=== PATIENT | female | born 1950 | race Two or more races ===

== ENCOUNTER 2016-07-19 07:59 | Outpatient (CLI) ==
--- NOTE | 2016-07-19 09:42 | MRI ---
EXAM: MRI brain without and with IV contrast. DATE: 07/19/2016. HISTORY: Dizziness. Patient has history of " mini-strokes". TECHNIQUE: Sagittal T1W pre and postcontrast, axial T2W, axial FLAIR, axial T1W pre and postcontras t, axial DWI, coronal T1W postcontrast, and coronal T2W GRE sequences of the brain were obtained usi ng 1.2 Monik magnet. CONTRAST: Omniscan - 17 ml IV. COMPARISON: CT head 04 December 2007 and 01 May 2016. FINDINGS: The ventricles, cisterns, and subarachnoid spaces are normal in size and configuration. No midline shift, mass effect or abnormal extra-axial fluid collection is apparent. No acute infarc t, hemorrhage or enhancing neoplasm is identified. No abnormal contrast enhancement is identified i n the brain, meninges or dura. Minimal T2W/FLAIR hyperintensity is observed in the white matter abu tting the anterior horn and body of each lateral ventricle. A few 1-4 mm, T2W/FLAIR bright, non-enh ancing foci are scattered in the subcortical white matter bilaterally. The keith - white matter diff erentiation is normal. A T2W GRE dark signal in the region of the pineal gland corresponds with ruthann cification on previous CT scan. No migration or diverticulation abnormality is identified. No defi nitive mesial temporal sclerosis is detected. The 7th/8th cranial nerve complexes, cerebellopontine angles, brainstem, and visible cervical spinal cord are normal. There is no cerebellar tonsillar e ctopia. The pituitary gland is very small in size and flattened against the floor of the sella, wit h CSF filling much of the pituitary fossa. Corpus callosum is normal in size and configuration. Fl ow voids are present in the major intracranial arteries and in the dural venous sinuses. No aneurys m, AVM or dural venous sinus thrombosis is apparent. Distortion at the anterior margin the globe of each eye on several sequences may be due to mascara. No other orbit abnormality is identified. Th e mastoid air cells are unremarkable. There is no acute sinusitis. No neck mass or lymphadenopathy is detected. Mild thickening of the inner table of the frontal bone appears benign. No calvarial neoplasm or acute fracture is evident. IMPRESSIONS: 1. No acute infarct, hemorrhage, enhancing mass or hydrocephalus. 2. Minor supratentorial white matter changes - likely small vessel disease. 3. Very small pituitary gland - nearly empty sella. 4. Benign hyperostosis frontalis interna (mild).
== END 2016-07-19 08:00 | disposition home or self-care (01) ==
LOC: RAD 07:59
PROVIDERS: ATTEND Internal Medicine
DX: R42 Dizziness and giddiness (principal); Z86.73 Personal history of transient ischemic attack (TIA), and cerebral infarction without residual deficits

== ENCOUNTER 2016-10-29 12:45 | Outpatient (CLI) ==
--- NOTE | 2016-11-01 08:07 | MAMMO ---
EXAM: Bilateral digital screening mammogram History: Screening. Comparison: Screening mammogram 12/02/2014 Findings: MLO and CC views of bilateral breasts demonstrate scattered fibroglandular breast parench yma. Stable benign bilateral nodular densities. Stable benign bilateral breast calcifications. Th ere are no developing masses, no suspicious microcalcifications and no architectural distortions Impression: Benign stable mammogram. Recommend followup routine screening mammography in 1 year. BIRADS 2
== END 2016-10-29 12:46 | disposition home or self-care (01) ==
LOC: RAD 12:45
PROVIDERS: ATTEND Internal Medicine
DX: Z12.31 Encounter for screening mammogram for malignant neoplasm of breast (principal)

== ENCOUNTER 2017-07-21 13:00 | Outpatient (CLI) ==
--- NOTE | 2017-07-21 14:39 | US ---
EXAM: ULTRASOUND CAROTID DUPLEX, BILATERAL HISTORY: Vertigo, hypertension and weakness FINDINGS: Kerns-scale ultrasound, color Doppler and spectral analysis was performed. Velocities are in meters per second. By kerns scale and color Doppler imaging, there were regions of heterogeneous plaque formation identif ied within the carotid bulbs and internal carotid arteries. These regions of plaque appeared to matt in easily less than 50% vessel diameter. RIGHT: External carotid artery peak systolic velocity: 1.1 Common carotid artery peak systolic velocity/end diastolic velocity: 0.6/0.1 Internal carotid artery peak systolic velocity: 0.9 ICA/CCA peak systolic velocity ratio: 1.5 ICA end diastolic velocity: 0.2 LEFT: External carotid artery peak systolic velocity: 1.0 Common carotid artery peak systolic velocity/end diastolic velocity: 0.8/0.2 Internal carotid artery peak systolic velocity: 0.9 ICA/CCA peak systolic velocity ratio: 1.1 ICA end diastolic velocity: 0.3 The right and left vertebral arteries were antegrade. IMPRESSION: 1. By kerns scale and color Doppler imaging, there were regions of heterogeneous plaque formation wilmer ntified within the carotid bulbs and internal carotid arteries. These regions of plaque appeared to remain easily less than 50% vessel diameter. 2. Internal carotid artery peak systolic velocities and ICA/CCA peak systolic velocity ratios indica te no hemodynamically significant stenosis bilaterally. 3. Both vertebral arteries were antegrade.
--- NOTE | 2017-07-21 15:16 | MRI ---
EXAM: MRI brain without and with IV contrast. DATE: 07/21/2017. HISTORY: Hypertension, vertigo, weakness. TECHNIQUE: Sagittal T1W postcontrast, axial T2W, axial FLAIR, axial T1W pre and postcontrast, axial DWI, coronal T1W postcontrast, and coronal T2W GRE sequences of the brain were obtained using 1.2 Shwetha la magnet. CONTRAST: Omniscan - 15 ml IV. COMPARISON: CT head 03/16/2017. MRI brain 07/19/2016. FINDINGS: The ventricles, cisterns, and subarachnoid spaces are normal in size and configuration. N o midline shift, mass effect or abnormal extra-axial fluid collection is apparent. No acute infarct, hemorrhage or enhancing neoplasm is identified. No abnormal contrast enhancement is identified in t he brain, meninges or dura. Narrow, confluent rim of T2W/FLAIR hyperintensity is observed in the whi te matter abutting each lateral ventricle. A handful of 2-5 mm, T2W/FLAIR bright, non-enhancing foci are scattered in the kay radiata and subcortical white matter. The keith - white matter different iation is normal. No migration or diverticulation abnormality is identified. The amygdala, hippocam pus, and parahippocampal gyri are similar bilaterally. The 7th/8th cranial nerve complexes, cerebell opontine angles, brainstem, and visible cervical spinal cord are normal. There is no cerebellar tons illar ectopia. The pituitary gland is small in size, with CSF filling much of the pituitary fossa. Corpus callosum is normal in size and configuration. Flow voids are present in the major intracrania l arteries and in the dural venous sinuses. No aneurysm, AVM or dural venous sinus thrombosis is ruth arent. No orbit abnormality is identified. The mastoid air cells are unremarkable. There is no acu te sinusitis. No neck mass or lymphadenopathy is detected. Mild thickening of the inner table of th e frontal bone appears benign. No calvarial neoplasm or acute fracture is evident. IMPRESSIONS: 1. No acute infarct, hemorrhage, mass or hydrocephalus. 2. Minimal supratentorial small vessel disease. 3. Empty sella appearance - very small pituitary. 4. Benign hyperostosis frontalis interna (mild)..
[2017-07-21 17:17] VITALS: BMI 31.2
== END 2017-07-21 13:01 | disposition home or self-care (01) ==
LOC: LAB 13:00
PROVIDERS: ATTEND Internal Medicine
DX: R42 Dizziness and giddiness (principal); I10 Essential (primary) hypertension; R11.10 Vomiting, unspecified; R53.1 Weakness
CPT/HCPCS: 36415; 82565

== ENCOUNTER 2017-07-21 15:28 | Observation (INO) | payer OTHER ==
[2017-07-21] MEDS ORDERED: ATROPINE SULFATE PFS IVP PRN (15:51)
[2017-07-21] MEDS ORDERED: MORPHINE 4 MG/ML VIAL IVP PRN (15:51)
[2017-07-21] MEDS ORDERED: NITROSTAT SL PRN (15:51)
[2017-07-21] MEDS ORDERED: VISTARIL INJ IM PRN (15:51)
[2017-07-21] MEDS ORDERED: ZOFRAN 4 MG/2 ML IVP PRN (15:51)
[2017-07-21] MEDS ORDERED: TYLENOL PO PRN (15:51)
[2017-07-21] MEDS ORDERED: VASOTEC IV IVP PRN (16:10)
--- NOTE | 2017-07-21 16:46 | DI ---
EXAM: CHEST FRONTAL AND LATERAL VIEWS HISTORY: Chest heaviness. COMPARISON: 05/01/2016 FINDINGS: Heart size is within normal limits. There is mild ectasia of the aorta suggesting atheros clerosis. No acute infiltrates are seen. No vascular congestion. There is no consolidation, visible pleural fluid or pneumothorax. Bones reveal no acute fracture. IMPRESSION: No acute cardiopulmonary process.
[2017-07-21] MEDS: ANTIVERT PO SCH ×2 (16:56→21:42)
[2017-07-21] MEDS: VALIUM PO SCH ×2 (16:58→21:42)
[2017-07-21 17:17] VITALS: BMI 31.2
[2017-07-22] MEDS ORDERED: LASIX TAB PO SCH (06:30)
[2017-07-22] MEDS ORDERED: MICRO-K CAP PO SCH (08:00)
[2017-07-22] MEDS ORDERED: ASPIRIN EC PO SCH (08:00)
[2017-07-22] MEDS: VALIUM PO SCH ×2 (08:15→14:29)
[2017-07-22] MEDS: ANTIVERT PO SCH ×2 (08:15→14:30)
[2017-07-22] MEDS ORDERED: BENICAR PO SCH (09:00)
[2017-07-22] MEDS ORDERED: ZEBETA PO SCH (09:00)
[2017-07-22] MEDS ORDERED: NON-FORMULARY MEDICATION (Olmesartan Medoxomil [Benicar] 40 MG) PO SCH (09:00)
[2017-07-22] MEDS ORDERED: NON-FORMULARY MEDICATION (Potassium Chloride [K-Tab Er] 10 MEQ) PO SCH (09:00)
[2017-07-22 16:43] VITALS: BP 121/53; TEMP 97.8
--- NOTE | 2017-07-25 09:18 | ECHO2D ---
Date of Exam: 07/22/17 Ordering Physician: DR. DARIEN BRAR Room #: [id number] 3 Reason for Echo: HYPERTENSION, DIZZINESS, VERTIGO Auscultation: S1, S2 Murmurs: NONE M-Mode Normal Adult Results LV Dimensions Normal Adult Results AoV Opening excursions >1.6 >1.6 LVEDD-base- 3.5-5.8 4.6 Ao root dimensions 2.0-3.7 3.7 LVESD-base- 3.1-4.6 L. Atrium dimensions 1.9-3.8 3.4 Post. Wall thickness 0.8-1.1 1.3 IV septum (thickness) 0.7-1.2 1.3 Post. Wall excursion 0.72-1.3 NORMAL Septal motion NORMAL Systolic motion R. Ventricular cavity 1.5-2.0 NORMAL LVEF 60% 56% Paradoxical septal wall motion NORMAL 2-D : 2-D M Mode Echocardiogram was performed using apical four chamber and left parasternal long and short axis views. Mitral, tricuspid and aortic valves appear to be normal. Contractility of the left ventricle seems to be normal, so is the cavity size. Left atrial cavity size and aortic root appear to be normal. There is no pericardial effusion. There is no thrombus noted in the left ventricular or left aortic cavity. No mitral valve prolapse noted. M-MODE: MV: NORMAL AV: NORMAL TV: NORMAL PV: CHAMBER SIZE: NORMAL WALL MOTION: NORMAL PERICARDIUM: NORMAL INTERPRETATION: 1. LEFT VENTRICULAR HYPERTROPHY 2. NORMAL VALVES 3. NORMAL LEFT VENTRICULAR CONTRACTILITY MTDD
--- NOTE | 2017-07-26 07:50 | DS ---
DATE OF SERVICE: 07/22/17 FINAL DIAGNOSIS: 1. Vertigo likely vestibular dysfunction 2. Nausea related to vestibular dysfunction 3. Hypertension 4. History of dizziness for past four years with multiple work up including cardiovascular and center nervous system. 5. Dyslipidemia 6. Hypertension 7. History of heart disease 8. Left knee replacement 9. Status post cholecystectomy 10.Status post back surgery, 1997 11.Right rotator cuff surgery 12.Left carpel tunnel syndrome surgery 13.Generalized osteoarthritis 14.BMI 33 DISCHARGE INSTRUCTIONS: Discharge home today. Continue the same medications as before. Refer to ENT, Dr. Gordon. MEDICATIONS AT DISCHARGE: Benicar 40mg PO QAM Furosemide 40mg PO QAM Bisoprolol Fumarate 5mg PO QAM Potassium Chloride 10 meq PO QAM NEW PRESCRIPTIONS: Valium 2mg one to two tablets three times a day total of 30 with 1 refill. Meclizine 25mg PO three times a day DIET INSTRUCTIONS: Regular ACTIVITY: As tolerated SMOKING: Never smoker DISEASE SPECIFIC EDUCATION: Medications Appointments HOSPITAL COURSE: 67 year old white female hospitalized with severe dizziness, vertigo, nausea and hypertension. The patient's hypertension was related to her vertigo. The patient was given Meclizine and Valium in the hospital. Her blood pressure was on the low side with systolic of close to 100. The patient's neurological status was entirely normal through out the stay in the hospital. Her Telemetry did not reveal any arrhythmias. The patient's carotid scans, MRI of the brain and echocardiogram were negative. The patient was feeling better and she was up and about with no dizziness. The patient is going to be see by Dr. Gordon. LABS: MRI of the brain negative. Carotid scan negative. Echocardiogram normal with LVH. Normal LV contractility. Hgb 13, hct 39, WBC 9,700, creatinine 0.7, BUN 14 , potassium 3.8. CONDITION: STABLE TIME SPENT: More than 60 minutes. [facility]
--- NOTE | 2017-07-26 07:51 | PN ---
07/21/17: Observation Level 5 07/22/17: Observation D as in discharge MTDD
== END 2017-07-22 17:35 | disposition home or self-care (01) ==
LOC: INTOOBSV 15:28 → SCU 15:28
PROVIDERS: ADMIT Internal Medicine; ATTEND Internal Medicine
DX: R42 Dizziness and giddiness (principal); R11.0 Nausea; R11.10 Vomiting, unspecified; R53.1 Weakness; R03.1 Nonspecific low blood-pressure reading; I10 Essential (primary) hypertension; E78.5 Hyperlipidemia, unspecified; M19.90 Unspecified osteoarthritis, unspecified site; Z86.69 Personal history of other diseases of the nervous system and sense organs; Z86.79 Personal history of other diseases of the circulatory system; Z98.890 Other specified postprocedural states; Z68.33 Body mass index [BMI] 33.0-33.9, adult; Z79.899 Other long term (current) drug therapy
CPT/HCPCS: 36415; 80053; 82550; 82565; 84484; 85025; 93005; 93010; 97802

== ENCOUNTER → 2017-07-27 | Outpatient (POV) ==
[2017-07-21 17:17] VITALS: BMI 31.2
== END ==
LOC: OUTPT 00:01
PROVIDERS: ATTEND Otolaryngology
DX: R42 Dizziness and giddiness (principal)
CPT/HCPCS: 92557; 92567

== ENCOUNTER 2017-10-05 14:02 | Outpatient (POV) | END 2017-10-05 17:00 | LOC: OUTPT 14:02 | PROVIDERS: ATTEND Otolaryngology | DX: H91.90 Unspecified hearing loss, unspecified ear (principal) | CPT/HCPCS: 92552 ==

== ENCOUNTER 2018-07-26 12:27 | Inpatient (IN) ==
[2018-07-26] MEDS ORDERED: TORADOL IVP PRN (13:18)
[2018-07-26 13:33] VITALS: BMI 32.3
[2018-07-26] MEDS ORDERED: DICLOFENAC SODIUM 100 GM TP PRN (14:24)
[2018-07-26] MEDS: CIPRO PO SCH ×2 (14:29→20:28)
[2018-07-26] MEDS: DEXTROSE 5%-1/2NS IV SOLUTION 1,000 ML IV SCH (14:30)
[2018-07-26] MEDS: FLAGYL 500 MG/100 ML 500 MG in PREMIX 100 ML NS 1 BAG IV SCH ×2 (14:31→20:28)
--- NOTE | 2018-07-26 15:15 | DI ---
EXAM: Chest two views HISTORY: Cough COMPARISON: 07/21/2017 TECHNIQUE: Two views of the chest were performed FINDINGS: The lungs are clear. There is no pleural effusion or pneumothorax. The heart is normal i n size. The mediastinal contour is normal, noting atherosclerosis. There are no acute abnormalities of the bones. Surgical anchors right proximal humerus. Rounded calcification left upper quadrant li radhika correlates with a small splenic artery aneurysm described on prior CT. IMPRESSION: No acute cardiopulmonary process.
--- NOTE | 2018-07-26 16:16 | CT ---
EXAM: CT abdomen pelvis with contrast HISTORY: Abdominal pain COMPARISON: 02/05/2016 TECHNIQUE: CT abdomen pelvis performed with intravenous contrast. Coronal and sagittal reformatted images obtained. FINDINGS: Granulomas calcification lower chest. No free air. No acute abnormalities of the bones. Left hip arthroplasty. Spinal fusion changes of L4-L5 and L5-S1. Degenerative change in the spine. Heart normal in size. Liver diffusely decreased and attenuation. Liver is enlarged. Patient stat us post cholecystectomy. Pancreas unremarkable. Granulomas calcification in the spleen. Spleen oth erwise unremarkable. Adrenals unremarkable. Kidneys unremarkable. Aorta normal in caliber. Mild a therosclerosis. Stable calcified splenic artery aneurysm measuring 1.4 cm. No lymphadenopathy or as cites. Small fat-containing periumbilical hernia. Small hiatal hernia. No dilated loops small pricila l. Appendix not visualized. Colonic diverticulosis. Questionable mild inflammatory stranding dis jack sigmoid colon region could represent mild diverticulitis; however, this region is very poorly shantanu luated, with portions of the colon obscured, secondary to streak artifact from hip arthroplasty. No focal drainable collection. Patient status post hysterectomy. Bladder decompressed and obscured sec ondary to arthroplasty. IMPRESSION: 1. Colonic diverticulosis. Questionable mild inflammatory stranding distal sigmoid colon region cou ld represent mild diverticulitis; however, this region is very poorly evaluated, with portions of the colon obscured, secondary to streak artifact from hip arthroplasty. No focal drainable collection. 2. Hepatomegaly. Probable hepatic steatosis.
[2018-07-26] MEDS: REQUIP PO SCH (20:28)
[2018-07-26] MEDS: BYSTOLIC PO SCH (20:28)
[2018-07-26] MEDS ORDERED: ROPINIROLE HCL 1 MG PO SCH (21:00)
[2018-07-27] MEDS: DEXTROSE 5%-1/2NS IV SOLUTION 1,000 ML IV SCH ×2 (00:49→10:12)
[2018-07-27] MEDS: CIPRO PO SCH ×2 (05:56→20:47)
[2018-07-27] MEDS: FLAGYL 500 MG/100 ML 500 MG in PREMIX 100 ML NS 1 BAG IV SCH ×3 (05:57→20:47)
[2018-07-27] MEDS: LASIX TAB PO SCH (05:57)
[2018-07-27] MEDS: ZOFRAN 4 MG/2 ML IVP PRN ×2 (06:47→13:23)
[2018-07-27] MEDS ORDERED: NON-FORMULARY MEDICATION (Potassium Chloride [K-Tab Er] 10 MEQ) PO SCH (09:00)
[2018-07-27] MEDS ORDERED: NON-FORMULARY MEDICATION (Olmesartan Medoxomil [Benicar] 40 MG) PO SCH (09:00)
[2018-07-27] MEDS ORDERED: PRAVACHOL PO SCH (09:00)
[2018-07-27] MEDS ORDERED: CELECOXIB 50 MG PO SCH (09:00)
[2018-07-27] MEDS: ASPIRIN EC PO SCH (09:02)
[2018-07-27] MEDS: BENICAR PO SCH (09:02)
[2018-07-27] MEDS: BYSTOLIC PO SCH ×2 (09:02→20:47)
[2018-07-27] MEDS: MICRO-K CAP PO SCH (09:02)
[2018-07-27] MEDS ORDERED: DULCOLAX RC STA (14:37)
[2018-07-27] MEDS ORDERED: DULCOLAX RC ONE (14:47)
[2018-07-27] MEDS ORDERED: DEXTROSE 5%-1/2NS IV SOLUTION 1,000 ML IV SCH (15:00)
[2018-07-27] MEDS: PROTONIX PO SCH (16:16)
[2018-07-27] MEDS: REQUIP PO SCH (20:47)
[2018-07-28 05:08] VITALS: BP 124/68; TEMP 98.1
[2018-07-28] MEDS: LASIX TAB PO SCH (05:54)
[2018-07-28] MEDS: PROTONIX PO SCH (05:54)
[2018-07-28] MEDS: FLAGYL 500 MG/100 ML 500 MG in PREMIX 100 ML NS 1 BAG IV SCH (05:54)
[2018-07-28] MEDS: CIPRO PO SCH (05:54)
--- NOTE | 2018-07-28 07:48 | PN ---
DATE OF SERVICE: 07/27/18 SUBJECTIVE: 68 year old white female eating at present time with no problem. She is tolerating food very well. The pain is much less. Her workup showed possibility of diverticulitis. REVIEW OF SYSTEMS: CONSTITUTIONAL: No night sweats. No fatigue, malaise, lethargy. No fever or chills. HEENT: Eyes: No visual changes. No eye pain. No eye discharge. ENT: No runny nose. No epistaxis. No sinus pain. No sore throat. No odynophagia. No congestion. RESPIRATORY: No cough, no congestion. No hemoptysis. No shortness of breath. CARDIOVASCULAR: No angina symptoms. No CHF symptoms. No atypical chest pain for CAD. No palpitations. No PND. No orthopnea. GASTROINTESTINAL: No nausea or vomiting. No diarrhea or constipation. No hematemesis. No hematochezia. Mild discomfort in the left upper quadrant. GENITOURINARY: No urgency. No frequency. No dysuria. No hematuria. No obstructive symptoms. No discharge. No pain. No significant abnormal bleeding. MUSCULOSKELETAL: No musculoskeletal pain; no joint swelling. NEUROLOGICAL: No headache. No neck pain. No syncope. No seizures. No dizziness. PSYCHIATRIC: Not anxious. No depression. No suicidal thoughts. No homicidal thoughts. SKIN: No rash. No lesions. No wounds. ENDOCRINE: No unexplained weight loss. No weight gain. HEMATOLOGIC/LYMPHATIC: No anemia. No purpura. No petechiae. No prolonged or excessive bleeding. No palpable lymph nodes. PHYSICAL EXAMINATION: VITAL SIGNS: Temperature 97.7, pulse 60, respiratory rate 18, blood pressure 134/80 and pulse ox 95%. HEENT: Head normocephalic, atraumatic. Eyes: Extraocular muscles are intact. Pupils are equal, round and reactive to light and accommodation. Ears: No lesions. Nose appeared normal. Throat: No exudate or erythema. NECK: Supple. No JVD, no carotid bruit. No lymphadenopathy or thyromegaly. LUNGS: Decreased breath sounds but clear to auscultation. Percussion note normal. Chest symmetrical. HEART: S1, S2, no S3. No murmurs. No cyanosis or clubbing. No ascites. Pulses: Dorsalis pedis and posterior tibial pulses +1 to +2 bilaterally. ABDOMEN: Soft. Nontender. Bowel sounds active. No CVA tenderness. No mass felt. EXTREMITIES: No edema. Full range of motion of all extremities, equal. NEUROLOGIC: No focal deficit. Cranial nerves II through XII are grossly intact. No headache, no double vision or headache. SKIN: Not dry. Intact. Turgor - normal. LYMPHATIC: No palpable lymph nodes/no lymphedema. MUSCULOSKELETAL: Normal joints with no swelling. Muscle tone is normal. LABS: Hgb 12.2, hct 37, WBC 7,400 normal differential, creatinine 0.6, BUN 11. ASSESSMENT: 1. Acute diverticulitis, seems to be resolving with antibiotics PLAN: 1. Continue the rest of the medication 2. Diet for the diverticulosis discussed CONDITION: Stable. TIME SPENT: More than 30 minutes. Plan and coordination of the patient's care discussed in the presence of nurse. FEMI
[2018-07-28] MEDS ORDERED: CELECOXIB 50 MG PO SCH (08:00)
[2018-07-28] MEDS ORDERED: PRAVACHOL PO SCH (09:00)
[2018-07-28] MEDS: MICRO-K CAP PO SCH (09:13)
[2018-07-28] MEDS: BENICAR PO SCH (09:13)
[2018-07-28] MEDS: ASPIRIN EC PO SCH (09:13)
[2018-07-28] MEDS: BYSTOLIC PO SCH (09:13)
--- NOTE | 2018-07-28 10:02 | PCM.PROG ---
Attending Provider: ATTENDING PROVIDER: Dr. DARIEN BRAR DATE OF SERVICE: 07/28/18 SUBJECTIVE: This 68 year old WHITE/ F was hospitalized 07/26/18 with acute diverticulitis. The patient has less bloating, is passing gas and feels much better. No fever, no chills. Appetite improving. She is up and about. REVIEW OF SYSTEMS: CONSTITUTIONAL: No night sweats. No fatigue, malaise, lethargy. No fever or chills. HEENT: Eyes: No visual changes. No eye pain. No eye discharge. ENT: No runny nose. No epistaxis. No sinus pain. No odynophagia. No congestion. RESPIRATORY: No cough, no congestion. No hemoptysis. No shortness of breath. CARDIOVASCULAR: No angina symptoms. No CHF symptoms. No atypical chest pain for CAD. No palpitations. No orthopnea.. GASTROINTESTINAL: No abdominal pain. No nausea or vomiting. No diarrhea or constipation. No hematemesis. No hematochezia. GENITOURINARY: No urgency. No frequency. No dysuria. No hematuria. No obstructive symptoms. No discharge. No pain. No significant abnormal bleeding. MUSCULOSKELETAL: No musculoskeletal pain; no joint swelling. NEUROLOGICAL: Awake, alert, oriented to time, place and person. No headache. No neck pain. No syncope. No seizures. No dizziness. PSYCHIATRIC: Not anxious. No depression. No suicidal thoughts. No homicidal thoughts. SKIN: No rash. No lesions. No wounds. ENDOCRINE: No unexplained weight loss. No weight gain. HEMATOLOGIC/LYMPHATIC: No anemia. No purpura. No petechiae. No prolonged or excessive bleeding. No palpable lymph nodes. PHYSICAL EXAMINATION: GENERAL: The patient is awake, alert and oriented, lying in bed in no distress. VITAL SIGNS: Temperature 98.1 F, Pulse 51, Respiratory Rate 20, BP 124/68, Pulse Ox 94% HEENT: Head normocephalic, atraumatic. Eyes: Extraocular muscles are intact. Pupils are equal, round and reactive to light and accommodation. Ears: No lesions. Nose appeared normal. Throat: No exudate or erythema. NECK: Supple. No JVD, no carotid bruit. No lymphadenopathy or thyromegaly. LUNGS: Clear to auscultation. Percussion note normal. Chest symmetrical. HEART: S1, S2, no S3. No murmurs. No cyanosis or clubbing. No ascites. Pulses: Dorsalis pedis and posterior tibial pulses +1 to +2 both sides. ABDOMEN: Soft. Non-tender. Bowel sounds active. No CVA tenderness. No mass felt. EXTREMITIES: No edema. Full range of motion of all extremities, equal. NEUROLOGIC: No focal deficit. Cranial nerves II through XII are grossly intact. No headache, no double vision or headache. SKIN: Warm and dry. Intact. Turgor-normal. LYMPHATIC: No palpable lymph nodes/no lymphedema. MUSCULOSKELETAL: Normal joints with no swelling. Muscle tone is normal. LAB REVIEW: 07/28/18 04:30 07/28/18 04:30 07/28/18 04:30: Sodium 143.3, Potassium 3.95, Chloride 104.4, Carbon Dioxide 29.5, Anion Gap 13.35, BUN 11.7, Creatinine 0.68, Estimated GFR (MDRD) 86.00, BUN/Creatinine Ratio 17.20, Glucose 120.3 H, Calcium 8.92, Total Bilirubin 0.30 , AST 30.6, ALT 22.3, Alkaline Phosphatase 79.5, Total Protein 6.55, Albumin 3.67, Globulin 2.88, Albumin/Globulin Ratio 1.27 07/28/18 04:30: WBC 7.24, RBC 4.09 L, Hgb 11.8 L, Hct 36.3 L, MCV 88.8, MCH 28.9 , MCHC 32.5, RDW Coeff of [place] 12.7, Plt Count 287, Immature Gran % (Auto) 0.6, Neut % (Auto) 54.6, Lymph % (Auto) 30.9, [place] % (Auto) 8.4, Eos % (Auto) 4.7, Baso % (Auto) 0.8, Immature Gran # (Auto) 0.0, Neut # (Auto) 4.0, Lymph # (Auto ) 2.2, [place] # (Auto) 0.6, Eos # (Auto) 0.3, Baso # (Auto) 0.1 ASSESSMENT: 1. Acute diverticulitis clinically under control. PLAN: 1. Discharge home. 2. Cipro 250 mg b.i.d. times 5 days 3. Protonix 40 mg q.a.m. once a day times 7 days 4. Flagyl 500 mg t.i.d. times 5 days 5. Soft diet - avoid milk products and citrus; to avoid nuts, seeds, popcorn. 6. Advised the patient to come to the emergency room if she has any problems. 7. Instructed to come to the office for followup visit on 08/02/18. Plan and coordination of the patient's care discussed in the presence of Community Services Manager and nurse. CONDITION: Stable SCRIBED BY: KLARISSA PIERRE Tile Ditcher scribed while in presence of service performed by Dr. DARIEN BRAR on 07/28/18 ([id number])
--- NOTE | 2018-07-28 10:14 | CM.DICTOOL ---
ADMISSION: 07/26/18 12:27 DISCHARGE: JULY 28, 2018 DATE OF SERVICE: 07/28/18 FINAL DIAGNOSIS ACUTE DIVERTICULITIS HYPERTENSION TIA, 2014 CATARACTS HYSTERECTOMY CHOLECYSTECTOMY APPENDECTOMY LEFT HIP REPLACEMENT LEFT KNEE REPLACEMENT RIGHT ROTATOR CUFF SURGERY LAST VITALS Temp Pulse Resp BP Pulse Ox 98.1 F 51 L 20 124/68 94 L 07/28/18 05:06 07/28/18 05:06 07/28/18 05:06 07/28/18 05:06 07/28/18 05:06 TAKE THESE MEDICATIONS AT HOME Aspirin (Aspirin Ec) 81 mg PO DAILYWM [facility] Last Admin: 07/28/18 09:13 Dose: 81 mg Ciprofloxacin (Cipro) 250 mg PO BIDCIPRO [facility] Last Admin: 07/28/18 05:54 Dose: 250 mg Furosemide (Lasix Tab) 40 mg PO QDAC [facility] Last Admin: 07/28/18 05:54 Dose: 40 mg Metronidazole 500 mg PO Q8HR [facility] Last Admin: 07/28/18 05:54 Dose: 100 mls/hr Nebivolol (Bystolic) 10 mg PO BID [facility] Last Admin: 07/28/18 09:13 Dose: 10 mg Non-Formulary Medication (Celecoxib [Celebrex]) 50 mg PO SuMoWeFr@0800 [facility] Last Admin: 07/28/18 09:14 Dose: Not Given Olmesartan (Benicar) 40 mg PO DAILY [facility] Last Admin: 07/28/18 09:13 Dose: 40 mg Pantoprazole Sodium (Protonix) 40 mg PO DAILY [facility] Last Admin: 07/28/18 05:54 Dose: 40 mg Potassium Chloride (Micro-K Cap) 10 meq PO DAILYWM [facility] Last Admin: 07/28/18 09:13 Dose: 10 meq Pravastatin Sodium (Pravachol) 40 mg PO MoWeFr@0900 [facility] Last Admin: 07/28/18 09:13 Dose: 40 mg Ropinirole HCl (Requip) 1 mg PO BEDTIME [facility] Last Admin: 07/27/18 20:47 Dose: 1 mg ALLERGIES codeine Adverse Reaction (Verified 07/21/17 16:08) DISCONTINUED MEDICATIONS NONE NEW PRESCRIPTIONS: PROTONIX 40 MG DAILY FOR 7 DAYS CIPRO 250 MG BID FOR 5 DAYS FLAGYL 500 MG TID FOR 5 DAYS SMOKING: NOT APPLICABLE DISEASE SPECIFIC EDUCATION: DIVERTICULITIS DIET OTHER DIETARY RESTRICTIONS, TEMPORARY PRESCRIPTIONS APPOINTMENT LAB REVIEW: 07/28/18 04:30 07/28/18 04:30 07/28/18 04:30: Sodium 143.3, Potassium 3.95, Chloride 104.4, Carbon Dioxide 29.5, Anion Gap 13.35, BUN 11.7, Creatinine 0.68, Estimated GFR (MDRD) 86.00, BUN/Creatinine Ratio 17.20, Glucose 120.3 H, Calcium 8.92, Total Bilirubin 0.30 , AST 30.6, ALT 22.3, Alkaline Phosphatase 79.5, Total Protein 6.55, Albumin 3.67, Globulin 2.88, Albumin/Globulin Ratio 1.27 07/28/18 04:30: WBC 7.24, RBC 4.09 L, Hgb 11.8 L, Hct 36.3 L, MCV 88.8, MCH 28.9 , MCHC 32.5, RDW Coeff of Kend[place] 12.7, Plt Count 287, Immature Gran % (Auto) 0.6, Neut % (Auto) 54.6, Lymph % (Auto) 30.9, [place] % (Auto) 8.4, Eos % (Auto) 4.7, Baso % (Auto) 0.8, Immature Gran # (Auto) 0.0, Neut # (Auto) 4.0, Lymph # (Auto ) 2.2, [place] # (Auto) 0.6, Eos # (Auto) 0.3, Baso # (Auto) 0.1 PLAN: DISCHARGE HOME DIET: REGULAR, NO SEEDS, NUTS, POPCORN, HUSKS NO DAIRY PRODUCTS OR [place]RUS FOODS FOR 3-4 DAYS ACTIVITY: GRADUALLY INCREASE DIET AT TOLERATED AN APPOINTMENT IS SCHEDULED ON AT 2:[address] BRAR/STEFANIE SOFIA APRN CONTINUE HOME MEDICATIONS MRS. WOODY IS ALERT AND ORIENTED X 3. SHE IS INDEPENDENT WITH ACTIVITIES OF DAILY LIVING. SHE LIVES AT HOME WITH HER . SHE IS AMBULATORY WITHOUT USE OF AN ASSISTIVE DEVICE. SHE DENIES ABDOMINAL PAIN OR NAUSEA TODAY. LAST BOWEL MOVEMENT WAS YESTERDAY; CONSISTING OF MAINLY MUCUS AND FLATUS. MEAL INTAKES HAVE BEEN GOOD AT 75-90% SINCE HER ADMISSION. SKIN TURGOR IS GOOD. SKIN IS FREE OF DECUBITUS ULCERS OR OPEN AREAS. SHE IS AGREEABLE TO ALL DISCHARGE PLANS DISCUSSED BY DR. BRAR. DARIEN BRAR MD
--- NOTE | 2018-07-28 14:49 | HP ---
DATE OF SERVICE: 07/26/18 HISTORY OF PRESENT ILLNESS: This is a 68-year-old White female, who after eating Maced[place] food, developed left upper quadrant and left middle quadrant pain with cramping with bloating - stomach swells up. She eats 5 to 6 bites and stomach feels full. Tuesday night she had fever and Tuesday sweating and nausea, bowel movement was mucus and water. PAST MEDICAL HISTORY: Insomnia Vertigo SUSAN Hypertension Dyslipidemia Osteoarthritis Mini strokes MENSTRUAL HISTORY: Mammogram 06/23/18 [facility] PAST SURGICAL HISTORY: Left hip replacement Left knee replacement Right rotator cuff Colonoscopy 2014 Gallbladder Appendix Back surgery 1997 Hysterectomy REVIEW OF SYSTEMS: CONSTITUTIONAL: No fever, no fatigue. HEENT: No sinus drainage, no sore throat. RESPIRATORY: No cough, no congestion. CARDIOVASCULAR: No atypical chest pain for coronary artery disease. No angina , CHF symptoms, palpitations or shortness of breath. GASTROINTESTINAL: No melena or abdominal pain. No GERD. GENITOURINARY: No hematuria, no prostatism, no polyuria. MATH INSTRUCTOR: No blackout, no dizziness, no headache, no double vision. MUSCULOSKELETAL: No osteoarthritis pain, no joint swelling. ENDOCRINE: No weight loss, no weight gain. SKIN: Not dry, no rash. PSYCHIATRIC: Not anxious, no depression, no suicidal thoughts, no homicidal thoughts. SOCIAL HISTORY: Nonsmoker. . No alcohol use. FAMILY HISTORY: History of cancer - colon. MEDICATIONS: ASA 81 mg daily Celebrex 20 mg four days a week Lasix 40 mg daily K-Tab 10 mEq daily Voltaren Gel b.i.d. Benicar 40 mg b.i.d. Bystolic 10 mg daily Pravachol 40 mg daily times three weeks ALLERGIES: CODEINE PHYSICAL EXAMINATION: V/S: Pulse 80, BP 148/90, temperature 98.4, 02 sat 96%. Height 5'4", BMI 32.2, weight 188.0. GENERAL APPEARANCE: Oriented times three. HEENT: Normal. NECK: No JVP, no bruits. RESPIRATORY: Lungs are clear. CARDIOVASCULAR: S1, S2, no S3, no murmurs. No cyanosis, clubbing. No ascites. GI/ABDOMEN: Left upper quadrant tenderness. Bowel sounds are active. EXTREMITIES: edema, pulses +1, equal. MATH INSTRUCTOR: Deep tendon reflexes, sensory, motor and gait all normal. RECTAL/PELVIC: Rectal: Colonoscopy 2014 in [place], [place]. Pelvic: Advised yearly - hysterectomy. Mammogram 06/23/18 [facility] ASSESSMENT: 1. ABDOMINAL PAIN 2. ACUTE COLITIS - FOOD POISONING/ACUTE DIVERTICULITIS 3. RIGHT KNEE REPLACEMENT 04/[address] - [facility] 4. INSOMNIA 5. VERTIGO 6. SUSAN 7. DYSLIPIDEMIA 8. HYPERTENSION 9. MINI STROKES 10. OSTEOARTHRITIS 11. CHOLECYSTECTOMY 12. BACK SURGERY 1997 13. RIGHT ROTATOR CUFF SURGERY 14. LEFT TOTAL HIP REPLACEMENT 15. LEFT CTS 16. LEFT KNEE REPLACEMENT 17. HYSTERECTOMY, 1986 18. APPENDECTOMY, 1979 PLAN: 1. Admit 2. Telemetry times 24 hours 3. CBC, CMP, TSH today and daily CBC, CMP 4. Vitals q.8hr 5. Flagyl 500 mg IV q.8hr 6. Stool for culture and sensitivity/Campylobacter 7. Cipro 250 mg p.o. b.i.d. times five days and one now 8. CT scan of abdomen and pelvis with content today 9. Diet; avoid milk/citrus products 10. Soft diet 11. 1000 cc's D5 1/2 NS 8 hourly 12. Continue Benicar, Bystolic from home meds 13. Zofran 4 mg IV now and 6 hourly p.r.n. 14. Toradol 30 mg IV now and q.8hourly p.r.n. 15. EKG and chest x-ray today TIME SPENT: More than 70 minutes. MTDD
--- NOTE | 2018-08-03 13:04 | DS ---
DATE OF SERVICE: 07/28/18 FINAL DIAGNOSIS: 1. ACUTE DIVERTICULITIS 2. HYPERTENSION 3. TIA, 2013 4. CATARACTS 5. HYSTERECTOMY 6. CHOLECYSTECTOMY 7. APPENDECTOMY 8. LEFT HIP REPLACEMENT 9. LEFT KNEE REPLACEMENT 10. RIGHT ROTATOR CUFF SURGERY LAST V/S: Temperature 98.1, pulse 51, respiratory rate 20, BP 124/68, pulse ox 94L DISCHARGE INSTRUCTIONS: Followup appointment is scheduled on August 02 at 2:[address] Stark/ Tiffanie Pedroza APRN. MEDICATIONS AT DISCHARGE: Aspirin 81 mg p.o. daily with meal GINNY Ciprofloxacin 250 mg p.o. b.i.d. GINNY Furosemide 40 mg p.o. q.d a.c. GINNY Metronidazole 500 mg p.o. q.8hr GINNY Nebivolol 10 mg p.o. b.i.d. GINNY Celebrex 50 mg p.o. SuMoWeFr@0800 GINNY Olmesartan 40 mg p.o. daily GINNY Pantoprazole 40 mg p.o. daily GINNY Potassium Chloride 10 mEq p.o. daily with meal GINNY Pravachol 40 mg p.o. MoWeFr@0900 GINNY Requip 1 mg p.o. bedtime GINNY DISCONTINUED MEDICATIONS: None NEW PRESCRIPTIONS: Protonix 40 mg daily for 7 days Cipro 250 mg b.i.d. for 5 days Flagyl 500 mg t.i.d. for 5 days DIET INSTRUCTIONS: Regular, no seeds, nuts, popcorn, husks. No dairy products or citrus foods for 3 to 4 days. ACTIVITY: Gradually increase diet as tolerated. SMOKING: N/A DISEASE SPECIFIC EDUCATION: Diverticulitis diet Other dietary restrictions, temporary Prescriptions Appointment HOSPITAL COURSE: This 68-year-old white female hospitalized with acute diverticulitis. The patient was treated in the hospital with IV Flagyl and p.o. Cipro. The patient' s condition has improved. She is feeling a lot better today. As described in discharge progress note, she was up and about, passing gas. Appetite is normalizing. WBC count was normal. She was afebrile. She was explained about diet for diverticulosis. Discharge home in stable condition. If the pain reoccurs advised to go to the emergency room. CONDITION: At time of discharge stable. TIME SPENT: More than 60 minutes. [facility]
--- NOTE | 2018-08-03 13:05 | PN ---
CODING FOR BILLING 07/26/18 LEVEL 5 07/27/18 INTERMEDIATE 07/28/18 DISCHARGE MTDD
== END 2018-07-28 11:27 | disposition home or self-care (01) | DRG 392 ==
LOC: MEDSURG A 12:27
PROVIDERS: ADMIT Internal Medicine; ATTEND Internal Medicine
DX: K52.9 Noninfective gastroenteritis and colitis, unspecified (principal); K57.92 Diverticulitis of intestine, part unspecified, without perforation or abscess without bleeding; G47.00 Insomnia, unspecified; R42 Dizziness and giddiness; F41.1 Generalized anxiety disorder; E78.5 Hyperlipidemia, unspecified; I10 Essential (primary) hypertension; M19.90 Unspecified osteoarthritis, unspecified site; Z86.73 Personal history of transient ischemic attack (TIA), and cerebral infarction without residual deficits; Z96.651 Presence of right artificial knee joint
CPT/HCPCS: 36415; 80053; 81001; 84439; 84443; 85007; 85025; 87015; 87045; 87899; 93005; 93010; 99223; 99232; 99239

== ENCOUNTER 2018-08-11 07:40 | Outpatient (CLI) | payer OTHER ==
--- NOTE | 2018-08-11 08:52 | CT ---
EXAM: CT of the abdomen pelvis with contrast History: Left-sided abdominal pain and left flank pain, nausea, history of appendectomy. Comparison: CT abdomen pelvis 07/26/2018 Technique: Multiplanar CT images through the abdomen pelvis were obtained following administration o f IV contrast Findings: Heart size is borderline enlarged. Lung bases are clear. No acute osseous abnormalities. Left hip arthroplasty hardware. Postsurgical changes of the lumbar spine. The liver is enlarged and fatty. Status post cholecystectomy. Spleen is unremarkable. Pancreas is within normal limits. Adrenal glands are unremarkable. No renal masses and no hydronephrosis. Scat tered colonic stool. Evaluation the pelvis is limited due to streak artifact from the hip hardware. Bladder is not well d istended. There is sigmoid diverticulosis. Mild inflammation seen adjacent to the sigmoid colon but improved compared to the prior study. No free air and no abscess. Impression: 1. Mild sigmoid diverticulitis but improved compared to the prior study. There is no free air and n o abscess. 2. Enlarged fatty liver
== END 2018-08-11 07:41 | disposition home or self-care (01) ==
LOC: RAD 07:40
PROVIDERS: ATTEND Internal Medicine
DX: R10.9 Unspecified abdominal pain (principal); R11.0 Nausea
CPT/HCPCS: 36415; 80053; 82150; 83690; 85025

== ENCOUNTER 2018-10-10 07:52 | Day surgery (SDC) ==
[2018-10-10 08:37] VITALS: TEMP 97
[2018-10-10] MEDS ORDERED: LIDOCAINE 1% 20 ML MDV ID STA (08:37)
[2018-10-10] MEDS ORDERED: DIPRIVAN 20 ML VIAL IVP ONE (10:25)
[2018-10-10] MEDS ORDERED: VERSED ONE (10:25)
--- NOTE | 2018-10-11 09:03 | OP ---
INDICATIONS FOR PROCEDURE: 68-year-old female presents for colonoscopy exam. She is scheduled for screening colonoscopy. She has a family history of colon cancer involving her mother, maternal uncle and maternal aunt all above the age of 50. She did have an episode of diverticulitis in July extending into August but that has resolved. MEDICATIONS: SEE ANESTHESIA NOTES. PROCEDURE: COLONOSCOPY, SNARE POLYPECTOMY. REPORT: The risks, benefits, alternatives and limitations were discussed in detail with the patient. Informed consent was obtained. After adequate sedation was achieved, a digital rectal exam revealed good tone, no masses. The colonoscope was introduced into the rectum and advanced under direct visual guidance. She has a tortuous sigmoid colon. I was able to cautiously and carefully advance the scope through the sigmoid on to the cecum. The cecum was identified by the appendiceal orifice and IC valve. Unfortunately she has a fair prep throughout the colon. She had mucus-like adherent stool with liquid puddles of stool with solid particles scattered here and there. I washed and suctioned this off as best as possible as I advanced the scope. I did again as I withdrew. In the cecum I encountered two polyps one was about 4 to 5 mm in size, the other one was about 7 to 8 mm in size both sessile, both removed by snare technique and placed in the same pathology jar. I then withdrew the scope in circumferential manner examining the mucosa quite carefully. I looked on the proximal and distal side of folds and flexures as best as possible. I retroflexed the scope in the right colon and left colon to increase visualization. At the hepatic flexure there was a small 5 mm sessile polyp I removed by snare technique and in the sigmoid there was a small 5 mm polyp that I removed by snare technique. A few diverticula were noted in the ascending colon, the hepatic flexure area. In the sigmoid where there is tortuosity was severe diverticulosis, small and large mouth present. No active diverticulitis noted. There were no other abnormalities noted including on retroflex view of the anal canal. The withdrawal time was 11 minutes and 34 seconds. The patient tolerated the procedure well with stable vital signs and pulse oximetry throughout. IMPRESSION: 1. Four (4) polyps removed. 2. Diverticulosis mostly in the sigmoid colon as described above. 3. Tortuous sigmoid colon secondary to diverticular disease. 4. Fair prep limiting the evaluation of this exam. RECOMMENDATIONS: 1. High fiber diet. 2. Await polyp pathology. 3. With her strong family history of polyps, finding the polyps and the fair prep, I recommend repeat colonoscopy examination again in 6 months with three attempts at getting a good prep. 4. Will see her back in the office as needed. CC: DR. ZONIA KAHN
[2018-10-12 14:45] VITALS: BP 132/68
== END 2018-10-10 11:25 | disposition home or self-care (01) ==
LOC: SURG 07:52
PROVIDERS: ATTEND Internal Medicine Gastroenterology
DX: Z12.11 Encounter for screening for malignant neoplasm of colon (principal); Z83.71 Family history of colonic polyps; K57.90 Diverticulosis of intestine, part unspecified, without perforation or abscess without bleeding; D12.0 Benign neoplasm of cecum; D12.3 Benign neoplasm of transverse colon; K63.5 Polyp of colon; D12.5 Benign neoplasm of sigmoid colon

== ENCOUNTER 2019-03-26 13:37 | Observation (INO) ==
[2019-03-26] MEDS ORDERED: SODIUM CHLORIDE 1,000 ML IV STA (14:07)
--- NOTE | 2019-03-26 15:32 | CT ---
EXAM: CT ABDOMEN AND PELVIS HISTORY: Upper abdominal pain, low back pain TECHNIQUE: CT abdomen and pelvis with intravenous contrast. Images were reconstructed using 5 mm se ction thickness. Reformations were prepared. FINDINGS: Compared to 08/11/2018. Mild fatty infiltration of the liver. Spleen is within normal limits. There is a small accessory sp natalia. There is a stable peripherally calcified 15 mm splenic artery aneurysm which is probably paten t. Gallbladder has been removed. Pancreas is unremarkable. Normal adrenal glands. Unremarkable ki dneys without evidence of hydronephrosis. Minimal atherosclerotic disease. Stomach is unremarkable. Patient has a history of previous appendectomy. There is mild to moderate distal colon diverticulosis. No clear evidence of diverticulitis. Bowel gas pattern is nonobstructi ve. The patient has underwent previous left hip arthroplasty which causes artifact obscuring some de tail especially in the anatomic pelvis. The visualized urinary bladder is normal. No uterus is seen . There is no ascites. Heterogeneous breast tissue density distribution. No abdominal wall hernia. Postop changes of the l ower lumbar spine and lumbosacral junction. Previous decompressive laminectomy at this level. There is moderate sacroiliac joint arthropathy. Lung bases are clear and there is no pneumoperitoneum. IMPRESSION: 1. Fatty liver. 2. Distal colon diverticulosis with no convincing evidence of diverticulitis. 3. Postop changes of the lumbar spine. Moderate arthropathy of the sacroiliac joints. 4. Stable peripherally calcified 15 mm splenic artery aneurysm which is probably patent. 5. Kidneys appeared normal.
--- NOTE | 2019-03-26 15:38 | CT ---
EXAM: CT angiography chest HISTORY: Upper abdominal and low back pain COMPARISON: None TECHNIQUE: CT angiography chest performed with intravenous contrast. Coronal and sagittal reformatt ed images obtained. 3-D reformatted images created. FINDINGS: Thoracic inlet unremarkable. Heart mildly enlarged. No pericardial effusion. Aorta norm al in caliber. Evaluation of the aortic lumen limited due to contrast timing. Mild atherosclerosis. No lymphadenopathy identified in the chest. Calcified lymph nodes, consistent with old granulomato us disease. No acute abnormalities of the bones. Central airway patent. Mild bibasilar ground-glas s may relate to atelectasis and/or air trapping. No airspace consolidation. No pleural effusion. N o pneumothorax. No filling defects identified in the pulmonary arteries to to the segmental level to suggest a pulmonary embolism. Areas of the more distal pulmonary arteries nondiagnostic due to area s of motion artifact. Please refer to separate report CT abdomen pelvis regarding findings in the upp er abdomen. IMPRESSION: 1. No evidence for pulmonary embolism to the segmental level. 2. Mild bibasilar ground-glass may relate to atelectasis and/or air trapping. 3. Cardiomegaly
--- NOTE | 2019-03-26 16:19 | ED.PDOC ---
General ED Provider: Dr. BONG GUAJARDO Chief Complaint: Abdominal Pain Stated Complaint: epigastric pain radiating between shoulder blades Time Seen by Physician: 13:39 Mode of Arrival: Walk-In Information Source: Patient Exam Limitations: No limitations Primary Care Provider: DARIEN BRAR Nursing and Triage Documentation Reviewed and Agree: Yes Does patient meet sepsis criteria?: No System Inflammatory Response Syndrome: Not Applicable Sepsis Protocol: For patient's 13 years and over: Temp is 96.8 and below OR 101 and greater Pulse >90 BPM Resp >20/minute Acutely Altered Mental Status Are patient's symptoms suggestive of a new infection, such as: -Pneumonia -Skin, Soft Tissue -Endocarditis -UTI -Bone, Joint Infection -Implantable Device -Acute Abdominal Infection -Wound Infection -Meningitis -Blood Stream Catheter Infection -Unknown Miscellaneous Complaint Exam - Complex/Multi-System Complaint/Exam Onset/Duration: 2 days Symptoms Are: Resolved Episodes Lasting: Days Initial Severity: Moderate Current Severity: Mild Location of Pain: chest Pain Radiates to: back Character: dull Aggravating: movement Alleviating: reast Associated Signs and Symptoms: Reports: Chest pain, Abdominal pain. Denies: Decreased responsiveness, Confusion, Agitation, Dizziness, Weakness, Syncope, Headache, Short of air, Cough, Wheezing, Hemoptysis, Palpitations, Edema, Nausea , Vomiting, Diarrhea, Back pain, Dysuria, Hematemesis, Melena, Decreased oral intake, Fever, Diaphoresis, Immunocompromised, Anticoagulation Therapy, Recent medication changes, Indwelling medical file clerk, Prior MRSA, Prior VRE, Recent trauma, Remote trauma Recent Echo/LV Function: No Respiratory Distress: None JVD Present: No Tachypnea Present: No Stridor Present: No Abdominal Findings: Present: Normal findings Glascow Coma Scale (see protocol): 15 Meningeal Signs Positive: No Focal Weakness: Present: None Focal Sensory Loss: Present: None Babinski Sign: Negative Right, Negative Left Skin Findings: Present: Normal findings Joint Swelling Present: No In-Dwelling Device Present: No Rectal Exam: Present: Tenderness Review of Systems - Review Of Systems Constitutional: Reports: No symptoms Eyes: Reports: No symptoms Ears, Nose, Mouth, Throat: Reports: No symptoms Respiratory: Reports: No symptoms Cardiac: Reports: Chest pain GI: Reports: No symptoms : Reports: No symptoms Musculoskeletal: Reports: No symptoms Skin: Reports: No symptoms Neurological: Reports: No symptoms Endocrine: Reports: No symptoms Hematologic/Lymphatic: Reports: No symptoms All Other Systems: Reviewed and Negative Past Medical History - Past Medical History Previously Healthy: Yes Endocrine: Reports: Dyslipidemia Cardiovascular: Reports: Hypertension Respiratory: Reports: None Hematological: Reports: None Gastrointestinal: Reports: None Genitourinary: Reports: None Neuro/Psych: Reports: Anxiety, Depression Musculoskeletal: Reports: None Cancer: Reports: None Last Menstrual Period: hysterectomy - Surgical History General Surgical History: Reports: Hysterectomy, Cholecystectomy, Adenoidectomy - Family History Family History: Reports: None - Social History Smoking Status: Never smoker Hx Substance Use: No Alcohol Screening: None Physical Exam - Physical Exam Appearance: Well-appearing, No pain distress, Well-nourished Eyes: JULIA, EOMI, Conjunctiva clear ENT: Ears normal, Nose normal, Oropharynx normal Respiratory: Airway patent, Breath sounds clear, Breath sounds equal, Respirations nonlabored Cardiovascular: RRR, Pulses normal, No rub, No murmur GI/: Soft, Nontender, No masses, Bowel sounds normal, No Organomegaly Musculoskeletal: Normal strength, ROM intact, No edema, No calf tenderness Skin: Warm, Dry, Normal color Neurological: Sensation intact, Motor intact, Reflexes intact, Cranial nerves intact, Alert, Oriented Psychiatric: Affect appropriate, Mood appropriate Interpretation - Radiology Interpretation Radiology Interpretation By: Radiologist Radiology Results: No acute changes Exam Interpreted: CT Scan - Mangle Roller Rate: Toni Rhythm: Sinus Ectopy: None - EKG Interpretation Rate: Toni (heart rate take by dai at 4:23 pm 59- 62 alert no symptoms) Rhythm: Sinus Ectopy: None Jud: NL ST Segment: Normal Re-Evaluation - Re-Evaluation Time of Re-Evaluation: 14:00 Status: Improved Vital Signs Stable: Yes Pain Level: 0 Appearance: NAD Lungs: Clear Skin: Warm and Dry Neuro: Alert and Oriented X3 CV: RRR - Re-Evaluation Time of Re-Evaluation: 16:21 Status: Improved Vital Signs Stable: Yes Pain Level: 0 Appearance: NAD Skin: Warm and Dry Neuro: Alert and Oriented X3 CV: RRR Physician Notification - Case Discussed Physician Notified: pmd Time of Notification: 16:20 Critical Care Note - Critical Care Note Total Time (mins): 0 Course - Course Hematology/Chemistry: 03/26/19 14:10 03/26/19 14:10 Orders, Labs, Meds: Lab Review 03/26/19 03/26/19 03/26/19 14:09 14:10 14:10 WBC 8.03 RBC 4.16 L Hgb 12.7 Hct 37.4 MCV 89.9 MCH 30.5 MCHC 34.0 RDW Coeff of [place] 13.4 Plt Count 249 Immature Gran % (Auto) 0.4 Neut % (Auto) 64.6 Lymph % (Auto) 27.3 [place] % (Auto) 6.2 Eos % (Auto) 0.9 Baso % (Auto) 0.6 Immature Gran # (Auto) 0.0 Neut # (Auto) 5.2 Lymph # (Auto) 2.2 [place] # (Auto) 0.5 Eos # (Auto) 0.1 Baso # (Auto) 0.1 Sodium 139.8 Potassium 3.80 Chloride 106.2 Carbon Dioxide 28.6 Anion Gap 8.80 BUN 11.5 Creatinine 0.67 Estimated GFR (MDRD) 88.00 BUN/Creatinine Ratio 17.16 Glucose 104.0 Calcium 9.75 Total Bilirubin 0.81 AST 28.6 ALT 23.2 Alkaline Phosphatase 92.6 Total Creatine Kinase Troponin I Total Protein 7.78 Albumin 4.66 Globulin 3.12 Albumin/Globulin Ratio 1.49 Amylase 62.4 Lipase 84.0 Urine Color Yellow Urine Clarity Clear Urine pH 6.5 Ur Specific [place] 1.010 Urine Protein Negative Urine Glucose (UA) Negative Urine Ketones Negative Urine Blood Negative Urine Nitrite Negative Urine Bilirubin Negative Urine Urobilinogen 0.2 Ur Leukocyte Esterase Negative 03/26/19 14:10 WBC RBC Hgb Hct MCV MCH MCHC RDW Coeff of [place] Plt Count Immature Gran % (Auto) Neut % (Auto) Lymph % (Auto) [place] % (Auto) Eos % (Auto) Baso % (Auto) Immature Gran # (Auto) Neut # (Auto) Lymph # (Auto) [place] # (Auto) Eos # (Auto) Baso # (Auto) Sodium Potassium Chloride Carbon Dioxide Anion Gap BUN Creatinine Estimated GFR (MDRD) BUN/Creatinine Ratio Glucose Calcium Total Bilirubin AST ALT Alkaline Phosphatase Total Creatine Kinase 46.9 Troponin I < 0.012 Total Protein Albumin Globulin Albumin/Globulin Ratio Amylase Lipase Urine Color Urine Clarity Urine pH Ur Specific [place] Urine Protein Urine Glucose (UA) Urine Ketones Urine Blood Urine Nitrite Urine Bilirubin Urine Urobilinogen Ur Leukocyte Esterase Orders Category Date Time Status EKG-(ED ONLY) Stat CARDIO 03/26/19 14:21 Completed EKG-(IP & OP ONLY) DAILY CARDIO 03/27/19 06:00 Ordered EKG-(IP & OP ONLY) DAILY CARDIO 03/28/19 06:00 Ordered EKG-(IP & OP ONLY) DAILY CARDIO 03/29/19 06:00 Ordered ACTIVITY .BR with BRP CARE 03/26/19 16:07 Active INTAKE & OUTPUT Q8HR CARE 03/26/19 16:07 Active NPO REMINDER: IMAGING ONCE CARE 03/26/19 14:06 Completed NPO REMINDER: IMAGING ONCE CARE 03/26/19 14:07 Completed Neuro Check [NEUROLOGICAL CHECKS] Q6HR CARE 03/26/19 16:16 Active VITAL SIGNS Q4HR CARE 03/26/19 16:07 Active REGULAR DIET DIETARY 03/26/19 Dinner Ordered ED IV/MEDIPORT/POWERPORT .ONCE EMERGENCY 03/26/19 14:05 Active AMYLASE Stat LAB 03/26/19 14:10 Completed CBC W/ AUTO DIFF Stat LAB 03/26/19 14:10 Completed COMPREHENSIVE METABOLIC PANEL Stat LAB 03/26/19 14:10 Completed CREATINE KINASE Q8H LAB 03/26/19 22:15 Ordered CREATINE KINASE Q8H LAB 03/27/19 06:15 Ordered CREATINE KINASE Stat LAB 03/26/19 14:10 Completed LIPASE Stat LAB 03/26/19 14:10 Completed TROPONIN I Q8H LAB 03/26/19 22:15 Ordered TROPONIN I Q8H LAB 03/27/19 06:15 Ordered TROPONIN I Stat LAB 03/26/19 14:10 Completed URINALYSIS C & S IF INDICATED Stat LAB 03/26/19 14:09 Completed 0.9 % Sodium Chloride [Saline Flush] MEDS 03/26/19 14:04 Active 1 syr IVF PRN PRN Alprazolam [Xanax] MEDS 03/27/19 09:00 Ordered 0.25 mg PO DAILY Aspirin [Aspirin EC] MEDS 03/27/19 09:00 Ordered 81 mg PO DAILY Escitalopram Oxalate [Lexapro] MEDS 03/26/19 21:00 Ordered 5 mg PO BEDTIME Furosemide [Lasix Tab] MEDS 03/27/19 09:00 Ordered 40 mg PO QAM Nebivolol HCl [Bystolic] MEDS 03/26/19 21:00 Ordered 10 mg PO BID Olmesartan Medoxomil [Benicar] MEDS 03/27/19 09:00 Ordered 40 mg PO DAILY Pantoprazole Sodium [Protonix] MEDS 03/26/19 17:00 Ordered 40 mg PO BIDAC Potassium Chloride [K-Tab ER] MEDS 03/27/19 09:00 Ordered 10 meq PO QAM Pravastatin Sodium [Pravachol] MEDS 03/26/19 16:30 Ordered 40 mg PO MOWEFR Ropinirole HCl [Requip] MEDS 03/26/19 21:00 Ordered 1 mg PO BEDTIME Sodium Chloride 0.9% [Sodium Chloride] 1,000 ml MEDS 03/26/19 14:07 Active IV 125 mls/hr Sodium Chloride 0.9% [Sodium Chloride] 1,000 ml MEDS 03/26/19 16:30 Ordered IV 75 mls/hr CT ABDOMEN/PELVIS W CONTRAST Stat RADS 03/26/19 14:[address] CHEST PE PROTOCOL Stat RADS 03/26/19 14:06 Completed Medications Generic Name Dose Route Start Last Admin Trade Name Freq PRN Reason Stop Dose Admin Alprazolam 0.25 mg 03/27/19 09:00 Xanax PO DAILY GINNY Aspirin 81 mg 03/27/19 09:00 Aspirin Ec PO DAILY GINNY Furosemide 40 mg 03/27/19 09:00 Lasix Tab PO QAM GINNY Sodium Chloride 1,000 mls @ 125 mls/hr 03/26/19 14:07 03/26/19 14:16 Sodium Chloride IV 03/26/19 22:06 125 mls/hr .Q8H STA Administration Sodium Chloride 1,000 mls @ 75 mls/hr 03/26/19 16:30 Sodium Chloride IV .[id number] GINNY Nebivolol 10 mg 03/26/19 21:00 Bystolic PO BID GINNY Non-Formulary Medication 5 mg 03/26/19 21:00 Escitalopram Oxalate [Lexapro] PO BEDTIME GINNY Non-Formulary Medication 40 mg 03/27/19 09:00 Olmesartan Medoxomil [Benicar] PO DAILY GINNY Non-Formulary Medication 10 meq 03/27/19 09:00 Potassium Chloride [K-Tab Er] PO QAM GINNY Non-Formulary Medication 1 mg 03/26/19 21:00 Ropinirole Hcl [Requip] PO BEDTIME GINNY Pantoprazole Sodium 40 mg 03/26/19 17:00 Protonix PO BIDAC GINNY Pravastatin Sodium 40 mg 03/26/19 16:30 Pravachol PO MOWEFR [facility] Sodium Chloride 1 syr 03/26/19 14:04 03/26/19 14:16 Saline Flush IVF 1 syr PRN PRN Administration To flush IV Vital Signs: Temp Pulse Resp BP Pulse Ox 03/26/19 13:37 97.8 F 57 L 20 167/84 H 95 Departure - Departure Time of Disposition: 16:20 Disposition: PLACED OBSERVATION Discharge Problem: Abdominal pain Chest pain Qualifiers: Chest pain type: unspecified Qualified Code(s): R07.9 - Chest pain, unspecified Instructions: Chest Pain (ED) Condition: Good Pt referred to PMD for follow-up: Yes IPMP verified?: No Allergies/Adverse Reactions: Allergies latex Adverse Reaction (Intermediate, Verified 03/26/19 13:47) RASH, BURNING codeine Adverse Reaction (Verified 03/26/19 13:47) Home Medications: Ambulatory Orders Furosemide 40 mg PO QAM 07/21/17 Potassium Chloride [K-Tab ER] 10 meq PO QAM 07/21/17 Aspirin [Aspir 81] 81 mg PO DAILY tab-cap 07/27/17 Nebivolol HCl [Bystolic] 10 mg PO BID tab-cap 08/23/17 Olmesartan Medoxomil [Benicar] 40 mg PO DAILY tab-cap 08/23/17 Pravastatin Sodium [Pravachol] 40 mg PO MOWEFR 07/26/18 Ropinirole HCl [Requip] 1 mg PO BEDTIME 07/26/18 Alprazolam [Xanax] 0.25 mg PO DAILY 03/26/19 Escitalopram Oxalate [Lexapro] 5 mg PO BEDTIME 03/26/19
[2019-03-26] MEDS: PROTONIX PO SCH (17:12)
[2019-03-26 17:26] VITALS: BMI 33.2
[2019-03-26] MEDS ORDERED: GI COCKTAIL PO STA (18:07)
[2019-03-26] MEDS ORDERED: TORADOL IVP PRN (18:18)
[2019-03-26] MEDS: ZOFRAN 4 MG/2 ML IVP PRN (19:18)
[2019-03-26] MEDS: BYSTOLIC PO SCH (20:49)
[2019-03-26] MEDS: ESCITALOPRAM OXALATE 10 MG PO SCH (20:52)
[2019-03-26] MEDS: ROPINIROLE HCL 1 MG PO SCH (20:53)
[2019-03-26] MEDS ORDERED: NON-FORMULARY MEDICATION (Escitalopram Oxalate [Lexapro] 5 MG) PO SCH (21:00)
[2019-03-26] MEDS: SODIUM CHLORIDE 1,000 ML IV SCH (21:46)
[2019-03-27] MEDS: ZOFRAN 4 MG/2 ML IVP PRN (06:08)
[2019-03-27] MEDS: PROTONIX PO SCH ×2 (06:09→16:34)
[2019-03-27] MEDS: LASIX TAB PO SCH (06:10)
[2019-03-27] MEDS ORDERED: TORADOL IVP STA (06:18)
--- NOTE | 2019-03-27 08:52 | PCM.PROG ---
Attending Provider: ATTENDING PROVIDER: Dr. DARIEN BRAR This patient is seen with Tiffanie Pedroza, Nurse Practitioner. DATE OF SERVICE: 03/27/19 SUBJECTIVE: This 69 year old WHITE/ F was hospitalized 03/26/19. The patient is lying in bed resting comfortably. She is nauseated this morning still with extreme tenderness right upper quadrant. She has had cholecystectomy and appendectomy. REVIEW OF SYSTEMS: CONSTITUTIONAL: No night sweats. No fatigue, malaise, lethargy. No fever or chills. HEENT: Eyes: No visual changes. No eye pain. No eye discharge. ENT: No runny nose. No epistaxis. No sinus pain. No odynophagia. No congestion. RESPIRATORY: No cough, no congestion. No hemoptysis. No shortness of breath. CARDIOVASCULAR: No angina symptoms. No CHF symptoms. No atypical chest pain for CAD. No palpitations. No orthopnea.. GASTROINTESTINAL: Positive for abdominal pain and nausea. No vomiting. No diarrhea or constipation. No hematemesis. No hematochezia. GENITOURINARY: No urgency. No frequency. No dysuria. No hematuria. No obstructive symptoms. No discharge. No pain. No significant abnormal bleeding. MUSCULOSKELETAL: No musculoskeletal pain; no joint swelling. NEUROLOGICAL: Awake, alert, oriented to time, place and person. No headache. No neck pain. No syncope. No seizures. No dizziness. PSYCHIATRIC: Not anxious. No depression. No suicidal thoughts. No homicidal thoughts. SKIN: No rash. No lesions. No wounds. ENDOCRINE: No unexplained weight loss. No weight gain. HEMATOLOGIC/LYMPHATIC: No anemia. No purpura. No petechiae. No prolonged or excessive bleeding. No palpable lymph nodes. PHYSICAL EXAMINATION: GENERAL: The patient is awake, alert and oriented, lying/sitting in bed in no distress. VITAL SIGNS: Temperature 97.7 F, Pulse 55, Respiratory Rate 19, BP 132/68, Pulse Ox 93% HEENT: Head normocephalic, atraumatic. Eyes: Extraocular muscles are intact. Pupils are equal, round and reactive to light and accommodation. Ears: No lesions. Nose appeared normal. Throat: No exudate or erythema. NECK: Supple. No JVD, no carotid bruit. No lymphadenopathy or thyromegaly. LUNGS: Diminished breath sounds. Clear to auscultation. Percussion note normal. Chest symmetrical. HEART: S1, S2, no S3. No murmurs. No cyanosis or clubbing. No ascites. Pulses: Dorsalis pedis and posterior tibial pulses +1 to +2 both sides. ABDOMEN: Soft. Right upper quadrant tenderness. Bowel sounds active. No CVA tenderness. No mass felt. EXTREMITIES: No edema. Full range of motion of all extremities, equal. NEUROLOGIC: No focal deficit. Cranial nerves II through XII are grossly intact. No headache, no double vision or headache. SKIN: Not dry. Intact. Turgor-normal. LYMPHATIC: No palpable lymph nodes/no lymphedema. MUSCULOSKELETAL: Normal joints with no swelling. Muscle tone is normal. LAB REVIEW: 03/27/19 06:13 03/27/19 06:13 03/27/19 06:13: WBC 6.36, RBC 3.96 L, Hgb 11.8 L, Hct 36.4 L, MCV 91.9, MCH 29.8 , MCHC 32.4, RDW Coeff of [place] 13.3, Plt Count 236, Immature Gran % (Auto) 0.3, Neut % (Auto) 55.2, Lymph % (Auto) 34.4, [place] % (Auto) 7.9, Eos % (Auto) 1.6, Baso % (Auto) 0.6, Immature Gran # (Auto) 0.0, Neut # (Auto) 3.5, Lymph # (Auto ) 2.2, [place] # (Auto) 0.5, Eos # (Auto) 0.1, Baso # (Auto) 0.0 03/27/19 06:13: Sodium 140.3, Potassium 4.18, Chloride 105.0, Carbon Dioxide 30.9 H, Anion Gap 8.58, BUN 12.1, Creatinine 0.79, Estimated GFR (MDRD) 72.00, BUN/Creatinine Ratio 15.31, Glucose 100.3, Calcium 8.97, Total Bilirubin 0.82, AST 22.9, ALT 21.8, Alkaline Phosphatase 77.3, Total Creatine Kinase 43.2, Troponin I < 0.012, Total Protein 7.02, Albumin 4.16, Globulin 2.86, Albumin/ Globulin Ratio 1.45 03/26/19 22:30: Total Creatine Kinase 45.1, Troponin I < 0.012 03/26/19 14:10: Total Creatine Kinase 46.9, Troponin I < 0.012 03/26/19 14:10: Sodium 139.8, Potassium 3.80, Chloride 106.2, Carbon Dioxide 28.6, Anion Gap 8.80, BUN 11.5, Creatinine 0.67, Estimated GFR (MDRD) 88.00, BUN /Creatinine Ratio 17.16, Glucose 104.0, Calcium 9.75, Total Bilirubin 0.81, AST 28.6, ALT 23.2, Alkaline Phosphatase 92.6, Total Protein 7.78, Albumin 4.66, Globulin 3.12, Albumin/Globulin Ratio 1.49, Amylase 62.4, Lipase 84.0 03/26/19 14:10: WBC 8.03, RBC 4.16 L, Hgb 12.7, Hct 37.4, MCV 89.9, MCH 30.5, MCHC 34.0, RDW Coeff of [place] 13.4, Plt Count 249, Immature Gran % (Auto) 0.4, Neut % (Auto) 64.6, Lymph % (Auto) 27.3, [place] % (Auto) 6.2, Eos % (Auto) 0.9, Baso % (Auto) 0.6, Immature Gran # (Auto) 0.0, Neut # (Auto) 5.2, Lymph # (Auto ) 2.2, [place] # (Auto) 0.5, Eos # (Auto) 0.1, Baso # (Auto) 0.1 03/26/19 14:09: Urine Color Yellow, Urine Clarity Clear, Urine pH 6.5, Ur Specific [place] 1.010, Urine Protein Negative, Urine Glucose (UA) Negative, Urine Ketones Negative, Urine Blood Negative, Urine Nitrite Negative, Urine Bilirubin Negative, Urine Urobilinogen 0.2, Ur Leukocyte Esterase Negative ASSESSMENT: 1. Right upper quadrant pain and swelling. 2. Epigastric pain and nausea. PLAN: 1. Carafate liquid. 2. Amylase and lipase. 3. Ultrasound right upper quadrant. Plan and coordination of the patient's care discussed in the presence of Benzol Operator and nurse. CONDITION: Stable SCRIBED BY: KLARISSA PIERRE Party Plan Sales Agent scribed while in presence of service performed by Dr. Brar/Tiffanie Pedroza APRN on 03/27/19 ([id number])
--- NOTE | 2019-03-27 10:15 | US ---
EXAM: ULTRASOUND ABDOMEN LIMITED HISTORY: Abdominal pain and tenderness FINDINGS: Ultrasound abdomen, limited. Kerns-scale ultrasound and color Doppler was performed. Live r size was measured at 15.5 cm, within normal limits. There is diffuse increased sound attenuation b y the liver parenchyma suggesting steatosis. No focal hepatic lesion or evidence of intrahepatic delaney iary dilatation was identified. The main portal vein is patent and hepatopedal. Gallbladder has been removed. The common bile duct diameter measured 0.66 cm which is within normal limits. No choledocholithiasis was identified. Visualized pancreas was unremarkable. No ascites. Survey of the right kidney revealed no hydronephrosis. IMPRESSION: 1. Fatty liver. 2. Post cholecystectomy state. Common bile duct diameter was within normal limits.
[2019-03-27] MEDS: NON-FORMULARY MEDICATION (Olmesartan Medoxomil [Benicar] 40 MG) PO SCH (10:29)
[2019-03-27] MEDS: NON-FORMULARY MEDICATION (Potassium Chloride [K-Tab Er] 10 MEQ) PO SCH (10:30)
[2019-03-27] MEDS: BYSTOLIC PO SCH ×3 (10:30→20:42)
[2019-03-27] MEDS: ASPIRIN EC PO SCH (10:31)
[2019-03-27] MEDS: XANAX PO SCH (10:32)
[2019-03-27] MEDS: CARAFATE PO SCH ×3 (10:36→20:42)
[2019-03-27] MEDS: SODIUM CHLORIDE 1,000 ML IV SCH ×2 (10:38→23:17)
[2019-03-27] MEDS ORDERED: DULCOLAX RC STA ×2 (18:58→21:14)
[2019-03-27] MEDS: ROPINIROLE HCL 1 MG PO SCH (20:42)
[2019-03-27] MEDS: ESCITALOPRAM OXALATE 10 MG PO SCH (20:42)
[2019-03-27] MEDS: TORADOL IVP PRN (21:19)
[2019-03-28] MEDS: PROTONIX PO SCH ×2 (05:42→17:01)
[2019-03-28] MEDS: CARAFATE PO SCH ×4 (05:42→20:09)
[2019-03-28] MEDS: LASIX TAB PO SCH (05:43)
[2019-03-28] MEDS ORDERED: PRAVACHOL PO SCH (09:00)
--- NOTE | 2019-03-28 09:13 | PCM.PROG ---
Attending Provider: ATTENDING PROVIDER: Dr. DARIEN BRAR DATE OF SERVICE: 03/28/19 SUBJECTIVE: This 69 year old WHITE/ F was hospitalized 03/26/19 with right upper quadrant pain. She has been seen by surgical scheduler. Assessment so far is that the patient has incisional ventral hernia in right upper quadrant for which she had a cholecystectomy done a long time ago. Today we are going to to do ultrasound of right upper quadrant in sitting up position to see if there is a sac or not. REVIEW OF SYSTEMS: CONSTITUTIONAL: No night sweats. No fatigue, malaise, lethargy. No fever or chills. HEENT: Eyes: No visual changes. No eye pain. No eye discharge. ENT: No runny nose. No epistaxis. No sinus pain. No odynophagia. No congestion. RESPIRATORY: No cough, no congestion. No hemoptysis. No shortness of breath. CARDIOVASCULAR: No angina symptoms. No CHF symptoms. No atypical chest pain for CAD. No palpitations. No orthopnea.. GASTROINTESTINAL: Right upper quadrant pain off and on, mild. No nausea or vomiting. No diarrhea or constipation. No hematemesis. No hematochezia. GENITOURINARY: No urgency. No frequency. No dysuria. No hematuria. No obstructive symptoms. No discharge. No pain. No significant abnormal bleeding. MUSCULOSKELETAL: No musculoskeletal pain; no joint swelling. NEUROLOGICAL: Awake, alert, oriented to time, place and person. No headache. No neck pain. No syncope. No seizures. No dizziness. PSYCHIATRIC: Not anxious. No depression. No suicidal thoughts. No homicidal thoughts. SKIN: No rash. No lesions. No wounds. ENDOCRINE: No unexplained weight loss. No weight gain. HEMATOLOGIC/LYMPHATIC: No anemia. No purpura. No petechiae. No prolonged or excessive bleeding. No palpable lymph nodes. PHYSICAL EXAMINATION: GENERAL: The patient is awake, alert and oriented, lying/sitting in bed in no distress. VITAL SIGNS: Temperature 97.9 F, Pulse 69, Respiratory Rate 14, BP 136/78, Pulse Ox 93% HEENT: Head normocephalic, atraumatic. Eyes: Extraocular muscles are intact. Pupils are equal, round and reactive to light and accommodation. Ears: No lesions. Nose appeared normal. Throat: No exudate or erythema. NECK: Supple. No JVD, no carotid bruit. No lymphadenopathy or thyromegaly. LUNGS: Clear to auscultation. Percussion note normal. Chest symmetrical. HEART: S1, S2, no S3. No murmurs. No cyanosis or clubbing. No ascites. Pulses: Dorsalis pedis and posterior tibial pulses +1 to +2 both sides. ABDOMEN: Soft. Non-tender. Bowel sounds active. No CVA tenderness. No mass felt. EXTREMITIES: No edema. Full range of motion of all extremities, equal. NEUROLOGIC: No focal deficit. Cranial nerves II through XII are grossly intact. No headache, no double vision or headache. SKIN: Warm and dry. Intact. Turgor-normal. LYMPHATIC: No palpable lymph nodes/no lymphedema. MUSCULOSKELETAL: Normal joints with no swelling. Muscle tone is normal. LAB REVIEW: 03/28/19 06:19 03/28/19 06:19 03/28/19 06:19: Sodium 138.2, Potassium 3.95, Chloride 105.0, Carbon Dioxide 30.2 H, Anion Gap 6.95, BUN 16.0, Creatinine 0.81, Estimated GFR (MDRD) 70.00, BUN/Creatinine Ratio 19.75, Glucose 113.1 H, Calcium 8.99, Total Bilirubin 0.54 , AST 20.8, ALT 19.8, Alkaline Phosphatase 81.7, Total Protein 6.37, Albumin 3.82, Globulin 2.55, Albumin/Globulin Ratio 1.49 03/28/19 06:19: WBC 6.98, RBC 3.77 L, Hgb 11.4 L, Hct 34.6 L, MCV 91.8, MCH 30.2 , MCHC 32.9, RDW Coeff of [place] 13.6, Plt Count 217, Immature Gran % (Auto) 0.3, Neut % (Auto) 58.9, Lymph % (Auto) 29.4, [place] % (Auto) 8.2, Eos % (Auto) 2.6, Baso % (Auto) 0.6, Immature Gran # (Auto) 0.0, Neut # (Auto) 4.1, Lymph # (Auto ) 2.1, [place] # (Auto) 0.6, Eos # (Auto) 0.2, Baso # (Auto) 0.0 03/27/19 06:13: Procalcitonin < 0.05 03/27/19 06:13: NT-Pro-B Natriuret Pep 397.000 H 03/27/19 06:13: Amylase 56.5, Lipase 78.6 ASSESSMENT: Please see below. 1. Incisional ventral hernia with right upper quadrant pain. 2. Cardiovascular status is stable. PLAN: 1. Repeat ultrasound of abdomen sitting up. Plan and coordination of the patient's care discussed in the presence of Polisher And Buffer and nurse. CONDITION: Stable SCRIBED BY: KLARISSA PIERRE Rubber Curer scribed while in presence of service performed by Dr. DARIEN BRAR on 03/28/19 ([id number])
[2019-03-28] MEDS: NON-FORMULARY MEDICATION (Olmesartan Medoxomil [Benicar] 40 MG) PO SCH (10:13)
[2019-03-28] MEDS: NON-FORMULARY MEDICATION (Potassium Chloride [K-Tab Er] 10 MEQ) PO SCH (10:15)
[2019-03-28] MEDS: BYSTOLIC PO SCH ×2 (10:15→20:01)
[2019-03-28] MEDS: ASPIRIN EC PO SCH (10:17)
[2019-03-28] MEDS: XANAX PO SCH (10:30)
[2019-03-28] MEDS: TORADOL IVP PRN (20:00)
[2019-03-28] MEDS: ESCITALOPRAM OXALATE 10 MG PO SCH (20:01)
[2019-03-28] MEDS: ROPINIROLE HCL 1 MG PO SCH (20:02)
[2019-03-28] MEDS ORDERED: DULCOLAX RC PRN (20:43)
[2019-03-29] MEDS: LASIX TAB PO SCH (05:55)
[2019-03-29] MEDS: PROTONIX PO SCH (05:55)
[2019-03-29] MEDS: CARAFATE PO SCH ×2 (05:55→10:15)
[2019-03-29] MEDS ORDERED: DECADRON 4 MG/ML SDV IM STA (08:20)
[2019-03-29] MEDS ORDERED: CITRATE OF MAGNESIA PO STA (08:20)
[2019-03-29] MEDS: ASPIRIN EC PO SCH (08:59)
[2019-03-29] MEDS: BYSTOLIC PO SCH (09:00)
[2019-03-29] MEDS: NON-FORMULARY MEDICATION (Olmesartan Medoxomil [Benicar] 40 MG) PO SCH (09:01)
[2019-03-29] MEDS: XANAX PO SCH (09:02)
[2019-03-29] MEDS: NON-FORMULARY MEDICATION (Potassium Chloride [K-Tab Er] 10 MEQ) PO SCH (09:02)
--- NOTE | 2019-03-29 09:32 | CONS ---
DATE OF CONSULTATION: 03/27/19 HISTORY OF PRESENT ILLNESS: This is a 69-year-old female , a patient of Dr. Stark, whom I was asked to see for examination and evaluation of the condition. The patient claimed that she began to experience abdominal pain about 6 days ago to this day. It happened after supper. The pain was sharp and of short duration. She also noted that her abdomen was bloated. She denied any physical exertion of any kind. Six days ago was Tuesday and today is Tuesday. She presented to the emergency room 03/26/19, yesterday. The patient had applied some heated pads without any relief, in fact, the problem seemed to have intensified prompting the patient to come to the emergency room. She developed some nausea with some vomiting the night before presentation. She denied any fever or chills. She had diarrhea but none the last two days but Tuesday and Tuesday. The patient at presentation in the emergency room had a temperature 97.8, pulse 57, respiratory rate 20, oxygen saturation 95 on room air. Blood pressure 167/ 84. Height 5'4", weight 190 lbs. CBC showed normal WBC, normal differential. CMP normal. Normal EGFR. Troponin normal less than 0.012. Urine was unremarkable. CT scan of the chest as well as abdomen showed no remarkable abnormalities. CT of the chest with angiogram, abdomen and pelvis with contrast also. Findings notable fatty liver. The patient had previous cholecystectomy with subcostal incision and appendectomy. The patient today is alert, oriented and cooperative, not in any distress and does not appear ill. She did have an ultrasound of the upper abdomen showing no significant abnormalities. The patient had no further diarrhea, vomiting or nausea. Vital signs at 5:57 p.m. temperature 97.6, pulse 53, blood pressure 141/69, respiratory rate 18, oxygen saturation 93 on room air. Neck has no masses and no bruit. Lungs are clear to auscultation. Heart is normal sinus rhythm. Abdomen is slightly protuberant with scar in the upper part of the abdomen, subcostal and also in the lower midline. The patient had some areas of tenderness near the scar lines. The tenderness is mostly in the epigastric areas likely to the right. Tenderness is more intense with the rectus muscle contracted. The patient appears to have ventral weakness, divarication of the rectus or maybe a hernia. The bowel sounds were active. No bruit. NT Pro-BNP is normal. Procalcitonin is normal. ASSESSMENT: 1. I do believe the pain is mostly muscular with some small herniation most likely preperitoneal fat. PLAN: 1. I will order a serum amylase and lipase. 2. I did advise the patient that I would review the CT scan of the abdomen and chest with the radiologist tomorrow and see if he has any further recommendations. I felt that this is probably muscular pain with some interdigitation of rm peritoneal fat causing the nodular tenderness in the subcutaneous tissue. This patient could also very well have a panniculitis but not likely. Note, the lipase and amylase times two were normal. I would send a specimen, even if the diarrhea has resolved because of the vomiting and diarrhea, a stool culture including Campylobacter. It is possible that this patient can have a rotovirus including a norovirus but the problem had stopped. It is very unlikely. Thank you very much for allowing me to examine this patient. FEMI
--- NOTE | 2019-03-29 09:50 | PCM.PROG ---
Attending Provider: ATTENDING PROVIDER: Dr. DARIEN STARK This patient is seen with Tiffanie Pedroza, Nurse Practitioner. DATE OF SERVICE: 03/29/19 SUBJECTIVE: This 69 year old WHITE/ F was hospitalized 03/26/19. The patient is lying in bed resting comfortably. Pain improved. There is still tenderness right upper quadrant. Dr. Beckwith consulted and felt residual pain from previous ventral hernia repair. She is unsure of the surgeon but it was done in [place]. REVIEW OF SYSTEMS: CONSTITUTIONAL: No night sweats. No fatigue, malaise, lethargy. No fever or chills. HEENT: Eyes: No visual changes. No eye pain. No eye discharge. ENT: No runny nose. No epistaxis. No sinus pain. No odynophagia. No congestion. RESPIRATORY: No cough, no congestion. No hemoptysis. No shortness of breath. CARDIOVASCULAR: No angina symptoms. No CHF symptoms. No atypical chest pain for CAD. No palpitations. No orthopnea.. GASTROINTESTINAL: Positive for constipation. Right upper qiadramt abdominal pain. No nausea or vomiting. No diarrhea. No hematemesis. No hematochezia. GENITOURINARY: No urgency. No frequency. No dysuria. No hematuria. No obstructive symptoms. No discharge. No pain. No significant abnormal bleeding. MUSCULOSKELETAL: No musculoskeletal pain; no joint swelling. NEUROLOGICAL: Awake, alert, oriented to time, place and person. No headache. No neck pain. No syncope. No seizures. No dizziness. PSYCHIATRIC: Not anxious. No depression. No suicidal thoughts. No homicidal thoughts. SKIN: No rash. No lesions. No wounds. ENDOCRINE: No unexplained weight loss. No weight gain. HEMATOLOGIC/LYMPHATIC: No anemia. No purpura. No petechiae. No prolonged or excessive bleeding. No palpable lymph nodes. PHYSICAL EXAMINATION: GENERAL: The patient is awake, alert and oriented, lying/sitting in bed in no distress. VITAL SIGNS: Temperature 98.2 F, Pulse 54, Respiratory Rate 18, BP 128/72, Pulse Ox 95% HEENT: Head normocephalic, atraumatic. Eyes: Extraocular muscles are intact. Pupils are equal, round and reactive to light and accommodation. Ears: No lesions. Nose appeared normal. Throat: No exudate or erythema. NECK: Supple. No JVD, no carotid bruit. No lymphadenopathy or thyromegaly. LUNGS: Clear to auscultation. Percussion note normal. Chest symmetrical. HEART: S1, S2, no S3. No murmurs. No cyanosis or clubbing. No ascites. Pulses: Dorsalis pedis and posterior tibial pulses +1 to +2 both sides. ABDOMEN: Improved tenderness right upper quadrant. Soft. Bowel sounds active. No CVA tenderness. No mass felt. EXTREMITIES: No edema. Full range of motion of all extremities, equal. NEUROLOGIC: No focal deficit. Cranial nerves II through XII are grossly intact. No headache, no double vision or headache. SKIN: Not dry. Intact. Turgor-normal. LYMPHATIC: No palpable lymph nodes/no lymphedema. MUSCULOSKELETAL: Normal joints with no swelling. Muscle tone is normal. LAB REVIEW: 03/29/19 05:10 03/29/19 05:10 03/29/19 05:10: Sodium 139.3, Potassium 4.26, Chloride 102.5, Carbon Dioxide 32.4 H, Anion Gap 8.66, BUN 16.9, Creatinine 0.97, Estimated GFR (MDRD) 57.00, BUN/Creatinine Ratio 17.42, Glucose 99.7, Calcium 9.33, Total Bilirubin 0.56, AST 21.0, ALT 20.7, Alkaline Phosphatase 84.5, Total Protein 6.92, Albumin 4.14 , Globulin 2.78, Albumin/Globulin Ratio 1.48 03/29/19 05:10: WBC 7.25, RBC 4.15 L, Hgb 12.3, Hct 38.1, MCV 91.8, MCH 29.6, MCHC 32.3, RDW Coeff of [place] 13.4, Plt Count 253, Immature Gran % (Auto) 0.4, Neut % (Auto) 57.7, Lymph % (Auto) 30.8, [place] % (Auto) 7.7, Eos % (Auto) 2.8, Baso % (Auto) 0.6, Immature Gran # (Auto) 0.0, Neut # (Auto) 4.2, Lymph # (Auto ) 2.2, [place] # (Auto) 0.6, Eos # (Auto) 0.2, Baso # (Auto) 0.0 ASSESSMENT: 1. Incisional ventral hernia with right upper quadrant pain. 2. Cardiovascular status is stable. PLAN: 1. 1/2 bottle of Mag Citrate this morning. 2. Decadron 4 mg this a.m. 3. Anticipate D/C today. 4. Schedule appointment with Dr. Bender or Dr. Morocho. Plan and coordination of the patient's care discussed in the presence of Regulatory Process Manager and nurse. CONDITION: Stable SCRIBED BY: KLARISSA PIERRE Offshoring Manager scribed while in presence of service performed by Dr. Stark/Tiffanie Pedroza APRN on 03/29/19 ([id number])
--- NOTE | 2019-03-29 11:29 | PN ---
DATE OF SERVICE: 03/27/19 SUBJECTIVE: The patient was seen and examined with Nurse Practitioner. The patient was seen and examined this morning. The patient's right upper quadrant pain seems to be from a ventral hernia which maybe reducible because right now there is no intestinal loops noted in it. All the rest of the tests with CT scan of the chest and abdomen negative. We will have Dr. Beckwith on consultation. The patient 's cardiovascular status is stable. TIME SPENT: More than 30 minutes. Plan and coordination of the patient's care discussed in the presence of nurse. FEMI
[2019-03-29 15:04] VITALS: BP 118/63; TEMP 97.9
--- NOTE | 2019-03-30 07:09 | CM.DICTOOL ---
ADMISSION: 03/26/19 16:22 DISCHARGE: 2018 DATE OF SERVICE: 03/29/19 FINAL DIAGNOSIS EPIGASTRIC PAIN INCISIONAL VENTRAL HERNIA WITH RIGHT UPPER QUADRANT PAIN HYPERTENSION DYSLIPIDEMIA TIA, 2014 DIVERTICULOSIS FATTY LIVER CHOLECYSTECTOMY HYSTERECTOMY VENTRAL HERNIA REPAIR (DATE UNKNOWN) LEFT HIP REPLACEMENT LEFT KNEE REPLACEMENT RIGHT ROTATOR CUFF REPAIR COLONOSCOPY, OCTOBER 2018 (POLYPS REMOVED) LAST VITALS Temp Pulse Resp BP Pulse Ox 98.2 F 74 18 128/72 95 03/29/19 05:40 03/29/19 08:00 03/29/19 05:40 03/29/19 05:40 03/29/19 05:40 TAKE THESE MEDICATIONS AT HOME Alprazolam (Xanax) 0.25 mg PO DAILY [facility] Last Admin: 03/29/19 09:02 Dose: 0.25 mg Aspirin (Aspirin Ec) 81 mg PO DAILYWM [facility] Last Admin: 03/29/19 08:59 Dose: 81 mg Furosemide (Lasix Tab) 40 mg PO QDAC [facility] Last Admin: 03/29/19 05:55 Dose: 40 mg Nebivolol (Bystolic) 5 mg PO BID [facility] Last Admin: 03/29/19 09:00 Dose: 5 mg Olmesartan Medoxomil [Benicar] 40 mg PO DAILY [facility] Last Admin: 03/29/19 09:01 Dose: 40 mg Potassium Chloride [K-Tab Er] 10 meq PO DAILYWM [facility] Last Admin: 03/29/19 09:02 Dose: 10 meq Ropinirole Hcl [Requip] 1 mg PO BEDTIME [facility] Last Admin: 03/28/19 20:02 Dose: 1 mg Escitalopram Oxalate [Lexapro] 10 mg PO BEDTIME [facility] Last Admin: 03/28/19 20:01 Dose: 10 mg Ondansetron HCl (Zofran) 4 mg PO Q6H PRN PRN Reason: Nausea / Vomiting Last Admin: N/A Pantoprazole Sodium (Protonix) 40 mg PO DAILY [facility] Last Admin: 03/29/19 05:55 Dose: 40 mg Pravastatin Sodium (Pravachol) 40 mg PO MoWeFr@0900 [facility] Last Admin: 03/28/19 10:18 Dose: Not Given ALLERGIES latex Adverse Reaction (Intermediate, Verified 03/26/19 13:47) RASH, BURNING codeine Adverse Reaction (Verified 03/26/19 13:47) DISCONTINUED MEDICATIONS NONE NEW PRESCRIPTIONS: PROTONIX 40 MG ONE TABLET BY MOUTH DAILY FOR 30 DAYS ZOFRAN 4 MG ONE TABLET BY MOUTH EVERY 6 HOURS NEEDED FOR NAUSEA/VOMITING SMOKING: NON SMOKER DISEASE SPECIFIC EDUCATION: EPIGASTRIC-CHEST PAIN PROTONIX ZOFRAN REFERRAL TO DR. KHAN FOLLOW UP APPOINTMENT LAB REVIEW: 03/29/19 05:10 03/29/19 05:10 03/29/19 05:10: Sodium 139.3, Potassium 4.26, Chloride 102.5, Carbon Dioxide 32.4 H, Anion Gap 8.66, BUN 16.9, Creatinine 0.97, Estimated GFR (MDRD) 57.00, BUN/Creatinine Ratio 17.42, Glucose 99.7, Calcium 9.33, Total Bilirubin 0.56, AST 21.0, ALT 20.7, Alkaline Phosphatase 84.5, Total Protein 6.92, Albumin 4.14 , Globulin 2.78, Albumin/Globulin Ratio 1.48 03/29/19 05:10: WBC 7.25, RBC 4.15 L, Hgb 12.3, Hct 38.1, MCV 91.8, MCH 29.6, MCHC 32.3, RDW Coeff of [place] 13.4, Plt Count 253, Immature Gran % (Auto) 0.4, Neut % (Auto) 57.7, Lymph % (Auto) 30.8, [place] % (Auto) 7.7, Eos % (Auto) 2.8, Baso % (Auto) 0.6, Immature Gran # (Auto) 0.0, Neut # (Auto) 4.2, Lymph # (Auto ) 2.2, [place] # (Auto) 0.6, Eos # (Auto) 0.2, Baso # (Auto) 0.0 PLAN: DISCHARGE HOME TODAY 2018 DIET: REGULAR TOLERATED ACTIVITY: GRADUALLY INCREASE ABLE YOU HAVE AN APPOINTMENT WITH DR. JEOVANY KHAN ON TuesdayApril AT 945 AM. PLEASE TAKE THE RADIOLOGY DISC TO THAT APPOINTMENT. ALONG WITH PHOTO ID, INSURANCE CARD, AND A LIST OF YOUR CURRENT MEDICATIONS. IF UNABLE TO KEEP APPOINTMENT PLEASE CALL TO RESCHEDULE. THE [facility] OF [address] [place] [address] FOLLOW UP APPOINTMENT HAS BEEN SCHEDULED WITH DR. BRAR/STEFANIE SOFIA APRN FOR April AT 1115 AM. IF UNABLE TO KEEP APPOINTMENT PLEASE CALL TO RESCHEDULE. FULL CODE STATUS ALERT, ORIENTED TIMES THREE. MRS. WOODY IS AGREEABLE WITH DISCHARGE HOME TODAY. SHE IS INDEPENDENT WITH ALL ACTIVITIES OF DAILY LIVING. DOES NOT REQUIRE USE OF ASSISTIVE DEVICE FOR AMBULATION. SHE CONTINUES TO HAVE INTERMITTENT PAIN/ TENDERNESS TO THE RIGHT UPPER QUADRANT WHICH WORSENS WITH MOVEMENT. THE TENDERNESS IS ABOVE AN OLD INCISION SITE FROM A VENTRAL HERNIA REPAIR. SHE IS UNSURE OF THE EXACT DATE OF THE HERNIA REPAIR AND SURGEON BUT RECALLS IT WAS IN [facility]. APPETITE HAS BEEN GOOD WITH MEAL INTAKE 50%-100%. SHE DID RECEIVED A 1/2 BOTTLE OF MAG CITRATE THIS MORNING R/T CONSTIPATION WITH ONE SMALL HARD STOOL REPORTED, ALONG WITH INCREASED FLATUS. REPORTS NORMAL URINARY ELIMINATION. HYDRATION STATUS IS ADEQUATE. SKIN INTACT. DARIEN BRAR M.D. STEFANIE SOFIA APRN
--- NOTE | 2019-04-09 14:50 | PN ---
DATE OF SERVICE: 03/29/19 SUBJECTIVE: The patient was seen and examined with Nurse Practitioner. The patient's condition is stable. She was explained about the findings, ventral hernia could be causing her symptoms off and on. The patient does not have any obstructed hernia intestinal loops. The patient had a history of having ventral hernia surgery at [facility]. The patient is going to be referred to Dr. Bender to be seen next week,early. CONDITION: Stable. TIME SPENT: More than 30 minutes. Plan and coordination of the patient's care discussed in the presence of nurse. FEMI
--- NOTE | 2019-04-09 14:51 | PN ---
03/26/19: Level 5 Observation 03/27/19: Intermediate, Observation 03/28/19: Intermediate, Observation 03/29/19: D as in discharge MTDD
--- NOTE | 2019-04-10 10:53 | CONS ---
DATE OF CONSULTATION: 03/28/19 HISTORY OF PRESENT ILLNESS: 69 year old female seen by me at the request of Dr. Stark. I did see her yesterday because of the right upper quadrant pain. I had reviewed the CAT scan of the abdomen and including the ultrasound. The patient during the course of examination was felt to have some pain in the upper abdomen probably muscular or small herniations however it did not mention in the CAT scan of the abdomen whether there was some defect in the abdominal wall. I did tell the patient that I would review the CAT scan of the abdomen and pelvis and other tests that were done at I would discuss the results of my review with the radiologist. I did review with the radiologist, Dr. Philippe and indeed there were some defects in the abdominal wall but they were not big. This more or less coincided with the physical findings. This patient had more tenderness with the rectus muscle in contraction rather than on relaxed status. I did tell that the she might need to see a general surgeon to discuss further. I also had discussed this with Dr. Stark that she needs a regular surgeon or a general surgeon to examine her and further give some recommendations. FEMI
--- NOTE | 2019-04-10 10:56 | DS ---
DATE OF SERVICE: 03/29/19 FINAL DIAGNOSIS: 1. EPIGASTRIC PAIN 2. INCISIONAL VENTRAL HERNIA WITH 3. RIGHT UPPER QUADRANT PAIN 4. HYPERTENSION 5. DYSLIPIDEMIA 6. TIA, 2013 7. DIVERTICULOSIS 8. FATTY LIVER 9. CHOLECYSTECTOMY 10.HYSTERECTOMY 11.VENTRAL HERNIA REPAIR (DATE UNKNOWN) 12.LEFT HIP REPLACEMENT 13.LEFT KNEE REPLACEMENT 14.RIGHT ROTATOR CUFF REPAIR 15.COLONOSCOPY, OCTOBER 2018 (POLYPS REMOVED) LAST VITALS: Temp Pulse Resp BP Pulse Ox 98.2 F 74 18 128/72 95 03/29/19 05:40 03/29/19 08:00 03/29/19 05:40 03/29/19 05:40 03/29/19 05:40 DISCHARGE INSTRUCTIONS: DISCHARGE HOME TODAY 2018. YOU HAVE AN APPOINTMENT WITH DR. JEOVANY KHAN ON TuesdayApril AT 945 AM. PLEASE TAKE THE RADIOLOGY DISC TO THAT APPOINTMENT. ALONG WITH PHOTO ID, INSURANCE CARD, AND A LIST OF YOUR CURRENT MEDICATIONS. FOLLOW UP APPOINTMENT HAS BEEN SCHEDULED WITH DR. BRAR/STEFANIE SOFIA APRN FOR April AT 1115 AM. IF UNABLE TO KEEP. FULL CODE STATUS. APPOINTMENT PLEASE CALL TO RESCHEDULE. IF UNABLE TO KEEP APPOINTMENT PLEASE CALL TO RESCHEDULE. [facility] [id number] TAKE THESE MEDICATIONS AT HOME: Alprazolam (Xanax) 0.25 mg PO DAILY GINNY Aspirin (Aspirin Ec) 81 mg PO DAILYWM GINNY Furosemide (Lasix Tab) 40 mg PO QDAC GINNY Nebivolol (Bystolic) 5 mg PO BID GINNY Olmesartan Medoxomil [Benicar] 40 mg PO DAILY GINNY Potassium Chloride [K-Tab Er] 10 meq PO DAILYWM GINNY Ropinirole Hcl [Requip] 1 mg PO BEDTIME GINNY Escitalopram Oxalate [Lexapro] 10 mg PO BEDTIME GINNY Ondansetron HCl (Zofran) 4 mg PO Q6H PRN Pantoprazole Sodium (Protonix) 40 mg PO DAILY GINNY Pravastatin Sodium (Pravachol) 40 mg PO MoWeFr@0900 GINNY ALLERGIES: latex Adverse Reaction (Intermediate, Verified 03/26/19 13:47) codeine Adverse Reaction (Verified 03/26/19 13:47) DISCONTINUED MEDICATIONS: NONE NEW PRESCRIPTIONS: PROTONIX 40 MG ONE TABLET BY MOUTH DAILY FOR 30 DAYS ZOFRAN 4 MG ONE TABLET BY MOUTH EVERY 6 HOURS NEEDED FOR NAUSEA/VOMITING SMOKING: NON SMOKER DISEASE SPECIFIC EDUCATION: EPIGASTRIC-CHEST PAIN PROTONIX ZOFRAN REFERRAL TO DR. KHAN FOLLOW UP APPOINTMENT DIET: REGULAR TOLERATED ACTIVITY: GRADUALLY INCREASE ABLE HOSPITAL COURSE: This is a white female who was admitted through the emergency room complaining of upper abdominal pain and tenderness. CT of the abdomen showed no acute cause for her pain. She was admitted for pain control given Toradol 30mg IV Q 8 hours PRN and started on Protonix 40mg BID along with Carafate 1gram TID. After CT was normal upon examination she had a large scar from previous incision from a ventral repair. We did ultrasound which did not show any obvious hernia. Consult was given to Dr. Beckwith who believes that she is still have ventral hernia pain. Radiologist said that there is slight abnormality could be causing her pain when the hernia pokes through. She had nausea and diarrhea initially, Zofran helped control her nausea. For the past 24 hours pain has improved. She has had any nausea. Dr. Beckwith recommended a surgical consult and we have set her up with an appointment for [facility] [place], Dr. Khan for next Tuesday. She is to have an appointment with us on the . We will discharge her in stable condition and give her Zofran 4mg PRN #15 to take if she needs. We will follow her as needed. TIME SPENT: More than 60 minutes. MTDD
--- NOTE | 2019-04-25 09:09 | HP ---
DATE OF SERVICE: 03/26/19 HISTORY OF PRESENT ILLNESS: 69-year-old white female presents to the emergency room complaining of abdominal pain, higher epigastric, right upper quadrant pain radiating through the shoulder blades then occurring for several days. She has also had vomiting and diarrhea. PAST MEDICAL HISTORY: Hypertension Dyslipidemia TIA 2013 History of diverticulosis Fatty liver PAST SURGICAL HISTORY: Cholecystectomy Hysterectomy Ventral hernia repair, date unknown Total left hip Total left knee Right rotator cuff repair Colonoscopy 2019 REVIEW OF SYSTEMS: CONSTITUTIONAL: Positive for weakness. No night sweats. No fatigue, malaise, lethargy. No fever or chills. HEENT: Eyes: No visual changes. No eye pain. No eye discharge. ENT: No runny nose. No epistaxis. No sinus pain. No sore throat. No odynophagia. No ear pain. No congestion. RESPIRATORY: No cough, no congestion. No hemoptysis. No shortness of breath. CARDIOVASCULAR: No angina symptoms. No CHF symptoms. No atypical chest pain for CAD. No palpitations. No PND. No orthopnea. GASTROINTESTINAL: Positive for nausea, upper abdominal pain and diarrhea. No vomiting. No constipation. No hematemesis. No hematochezia. GENITOURINARY: No urgency. No frequency. No dysuria. No hematuria. No obstructive symptoms. No discharge. No pain. No significant abnormal bleeding. MUSCULOSKELETAL: No musculoskeletal pain. No joint swelling. No arthritis. NEUROLOGICAL: No headache. No neck pain. No syncope. No seizures. No dizziness. PSYCHIATRIC: Not anxious. No depression. No suicidal thoughts. No homicidal thoughts. SKIN: No rash. No lesions. No wounds. ENDOCRINE: No unexplained weight loss. No weight gain. HEMATOLOGIC/LYMPHATIC: No anemia. No purpura. No petechiae. No prolonged or excessive bleeding. No palpable lymph nodes. PERSONAL/FAMILY/SOCIAL HISTORY: The patient is , lives at home with her . Nonsmoker. No alcohol or ilicit drug use. MEDICATIONS: (HOME) Furosemide 40 mg p.o. q.a.m. K-Tab ER 10 mEq p.o. q.a.m. Aspirin 81 mg p.o. daily Bystolic 5 mg p.o. b.i.d. Benicar 40 mg p.o. daily Pravachol 40 mg p.o. MoWeFr Requip 1 mg p.o. bedtime Lexapro 5 mg p.o. bedtime Xanax 0.25 mg p.o. daily ALLERGIES: LATEX, CODEINE PHYSICAL EXAMINATION: VITAL SIGNS: Temperature 97.8, heart rate 57, respiratory rate 20, blood pressure 167/84, pulse ox 95%. HEENT: Head normocephalic, atraumatic. Eyes: Extraocular muscles are intact. Pupils are equal, round and reactive to light and accommodation. Ears: No lesions. Nose appeared normal. Throat: No exudate or erythema. NECK: Supple. No JVD, no carotid bruit. No lymphadenopathy or thyromegaly. LUNGS: Diminished breath sounds. Clear to auscultation. Percussion note normal. Chest symmetrical. HEART: S1, S2, no S3. No murmur. No cyanosis or clubbing. No ascites. Pulses: Dorsalis pedis and posterior tibial pulses +1 to +2 bilaterally. ABDOMEN: Soft. Right upper quadrant tenderness. Bowel sounds active. No CVA tenderness. No mass felt. EXTREMITIES: No edema. Full range of motion of all extremities, equal. NEUROLOGIC: Alert and oriented times three. No focal deficit. Cranial nerves II through XII are grossly intact. No headache, no double vision or headache. SKIN: Not dry. Intact. Turgor - normal. LYMPHATIC: No palpable lymph nodes/no lymphedema. MUSCULOSKELETAL: Normal joints with no swelling. Muscle tone is normal. White count 8.0, hemoglobin 12.7, hematocrit 37.4, platelets 249. Sodium 139, potassium 3.8, BUN 11, creatinine 0.67. ASSESSMENT: 1. Abdominal pain, right upper quadrant pain. 2. Hypertension. 3. Nausea, vomiting. 4. Dehydration. PLAN: 1. We will admit to observation. 2. Amylase and lipase. 3. Normal Saline at 75 cc/hr. 4. Zofran 4 mg IV q.6hr p.r.n. 5. Protonix 40 mg b.i.d. 6. CBC, CMP daily. 7. Continue home medications. 8. CT of the abdomen and pelvis. 9. Follow closely. TIME SPENT: More than 70 minutes. MTDD
== END 2019-03-29 14:30 | disposition home or self-care (01) ==
LOC: ED 13:37 → MEDSURG B 16:22
PROVIDERS: ADMIT Internal Medicine; ATTEND Internal Medicine
DX: K43.2 Incisional hernia without obstruction or gangrene; I10 Essential (primary) hypertension; R11.0 Nausea; E78.5 Hyperlipidemia, unspecified

== ENCOUNTER 2021-04-14 17:21 | Inpatient (IN) ==
[2021-04-14] MEDS ORDERED: NITROSTAT SL PRN (17:54)
[2021-04-14] MEDS ORDERED: ATROPINE SULFATE PFS IVP PRN (17:54)
[2021-04-14] MEDS ORDERED: TYLENOL PO PRN (17:54)
[2021-04-14] MEDS ORDERED: SODIUM CHLORIDE 500 ML IV SCH (18:00)
[2021-04-14 18:06] LABS: BASOPHILS # (AUTO) 0.1 K/uL (0-0.2); BASOPHILS % (AUTO) 0.6 % (0.0-3.0); EOSINOPHILS # (AUTO) 0.3 K/ul (0.0-0.7); EOSINOPHILS % (AUTO) 3.3 % (0.0-7.0); HEMATOCRIT 39.2 % (37.0-47.0); HEMOGLOBIN 12.5 g/dl (12.0-16.0); IMMATURE GRANULOCYTE % (AUTO) 0.3 % (0.0-5.0); LYMPHOCYTES # (AUTO) 2.1 K/uL (0.60-3.4); LYMPHOCYTES % (AUTO) 20.5 (10.0-50.0); MEAN CORPUSCULAR HEMOGLOBIN 29.1 pg (27.0-31.0); MEAN CORPUSCULAR HGB CONC 31.9 (31.8-35.4); MEAN CORPUSCULAR VOLUME 91.2 fl (81.0-99.0); MONOCYTES # (AUTO) 0.9 K/uL (0.4-2.0); MONOCYTES % (AUTO) 8.4 (0-10); NEUTROPHILS # (AUTO) 6.7 K/ul (2.0-6.9); NEUTROPHILS % (AUTO) 66.9 % (42.2-75.2); PLATELET COUNT 335 10^3/uL (140-440); RDW COEFFICIENT OF VARIATION 13.2 % (11.6-14.8); WHITE BLOOD COUNT 10.07 K/ul (4.6-10.2)
[2021-04-14 18:08] LABS: BILIRUBIN,URINE Negative (NEGATIVE); CLARITY,URINE Clear (CLEAR); COLOR,URINE Yellow (YELLOW); GLUCOSE, URINE (UA) Negative (NEGATIVE); KETONES,URINE Negative (NEGATIVE); LEUKOCYTE ESTERASE ,URINE Negative (NEGATIVE); NITRITE,URINE Negative (NEGATIVE); PROTEIN,URINE Negative (NEGATIVE); URINE, BLOOD Trace-intact (NEGATIVE); UROBILINOGEN,URINE 0.2 (0.2)
[2021-04-14 18:14] VITALS: BMI 33.2
[2021-04-14 18:18] LABS: ALANINE AMINOTRANSFERASE 20.4 U/L (0-35); ALBUMIN 4.44 g/dL (3.5-5.0); ALKALINE PHOSPHATASE 130.9 U/L (53-141); ASPARTATE AMINO TRANSFERASE 29.5 U/L (14-36); BILIRUBIN,TOTAL 0.38 mg/dL (0.2-1.3); BLOOD UREA NITROGEN 13.7 mg/dL (7-17); CALCIUM 9.33 mg/dL (8.4-10.2); CARBON DIOXIDE 29.9 mmol/L (22-30.0); CHLORIDE 104.4 mmol/L (98-107); CREATININE 0.74 mg/dL (0.60-1.30); GLUCOSE 98.8 mg/dL (74-106); POTASSIUM 3.95 mmol/L (3.5-5.1); SODIUM 142.5 mmol/L (134.5-145); TOTAL PROTEIN 7.39 g/dL (6.3-8.2)
[2021-04-14] MEDS: DILAUDID 1 MG/ML SYRINGE IVP PRN (18:52)
--- NOTE | 2021-04-14 18:52 | DI ---
EXAM: Two-view chest HISTORY: Shortness of breath COMPARISON: Two-view chest 07/26/2018 FINDINGS: The cardiomediastinal silhouette is stable. There is no consolidation or effusion.. Surg ical anchors are seen within the proximal right humerus.. Interval left shoulder arthroplasty. IMPRESSION: No evidence of active pulmonary disease.
[2021-04-14] MEDS: ZOFRAN 4 MG/2 ML IVP PRN (18:54)
[2021-04-14] MEDS: SODIUM CHLORIDE 1,000 ML IV SCH (19:02)
[2021-04-14] MEDS ORDERED: CIPRO 400 MG/200 ML D5W 400 MG/200 ML BAG IV ONE (19:16)
[2021-04-14] MEDS: FLAGYL 500 MG/100 ML 500 MG/100 ML BAG IV SCH (21:29)
[2021-04-14] MEDS: REQUIP PO SCH (21:29)
[2021-04-14] MEDS: ELAVIL PO SCH (21:30)
[2021-04-14] MEDS: CIPRO 400 MG/200 ML D5W 400 MG/200 ML BAG IV SCH (22:53)
[2021-04-15] MEDS: FLAGYL 500 MG/100 ML 500 MG/100 ML BAG IV SCH ×3 (04:33→20:53)
[2021-04-15 05:20] LABS: BASOPHILS # (AUTO) 0.1 K/uL (0-0.2); BASOPHILS % (AUTO) 0.8 % (0.0-3.0); EOSINOPHILS # (AUTO) 0.3 K/ul (0.0-0.7); EOSINOPHILS % (AUTO) 4.3 % (0.0-7.0); HEMATOCRIT 34.1 % (37.0-47.0); HEMOGLOBIN 10.9 g/dl (12.0-16.0); IMMATURE GRANULOCYTE % (AUTO) 0.2 % (0.0-5.0); LYMPHOCYTES # (AUTO) 1.6 K/uL (0.60-3.4); LYMPHOCYTES % (AUTO) 24.3 (10.0-50.0); MEAN CORPUSCULAR HEMOGLOBIN 29.1 pg (27.0-31.0); MEAN CORPUSCULAR VOLUME 90.9 fl (81.0-99.0); MONOCYTES # (AUTO) 0.5 K/uL (0.4-2.0); MONOCYTES % (AUTO) 7.7 (0-10); NEUTROPHILS # (AUTO) 4.1 K/ul (2.0-6.9); NEUTROPHILS % (AUTO) 62.7 % (42.2-75.2); PLATELET COUNT 287 10^3/uL (140-440); RDW COEFFICIENT OF VARIATION 13.2 % (11.6-14.8); RED BLOOD COUNT 3.75 10^6/ul (4.20-5.40); WHITE BLOOD COUNT 6.49 K/ul (4.6-10.2)
[2021-04-15 05:31] LABS: ALANINE AMINOTRANSFERASE 21.3 U/L (0-35); ALBUMIN 3.72 g/dL (3.5-5.0); ALKALINE PHOSPHATASE 109.4 U/L (53-141); ASPARTATE AMINO TRANSFERASE 26.6 U/L (14-36); BILIRUBIN,TOTAL 0.4 mg/dL (0.2-1.3); BLOOD UREA NITROGEN 10.1 mg/dL (7-17); CALCIUM 8.5 mg/dL (8.4-10.2); CARBON DIOXIDE 29.6 mmol/L (22-30.0); CHLORIDE 104.5 mmol/L (98-107); CREATININE 0.61 mg/dL (0.60-1.30); GLUCOSE 111.3 mg/dL (74-106); POTASSIUM 3.89 mmol/L (3.5-5.1); SODIUM 140.2 mmol/L (134.5-145); TOTAL PROTEIN 6.49 g/dL (6.3-8.2)
[2021-04-15] MEDS: BENICAR PO SCH (08:12)
[2021-04-15] MEDS: BYSTOLIC PO SCH (08:12)
[2021-04-15] MEDS: LIPITOR PO SCH (08:13)
[2021-04-15] MEDS: ASPIRIN EC PO SCH (08:13)
[2021-04-15] MEDS: CELEXA PO SCH (08:14)
[2021-04-15] MEDS: MICRO-K CAP PO SCH (08:15)
[2021-04-15] MEDS: CIPRO 400 MG/200 ML D5W 400 MG/200 ML BAG IV SCH ×2 (08:16→22:09)
[2021-04-15] MEDS: LASIX TAB PO SCH (08:16)
[2021-04-15] MEDS: ZOFRAN 4 MG/2 ML IVP PRN ×2 (08:39→15:26)
[2021-04-15] MEDS: DILAUDID 1 MG/ML SYRINGE IVP PRN ×3 (09:48→19:58)
[2021-04-15] MEDS ORDERED: DULCOLAX RC ONE ×2 (11:32→17:29)
--- NOTE | 2021-04-15 11:32 | HP ---
DATE OF SERVICE: 04/14/2021 REASON FOR HOSPITALIZATION/HISTORY OF PRESENT ILLNESS: No signs of symptoms of CHF, CAD or COVID. The patient has extreme abdominal pain on Cipro for UTI left lower quadrant and lower. CT today showed acute diverticulitis. Low fever and vomiting times two days. PAST MEDICAL HISTORY: Insomnia Vertigo SUSAN Hypertension Dyslipidemia Osteoarthritis Mini stroke PAST SURGICAL HISTORY: Left hip replacement Left knee replacement Right rotator cuff Colonoscopy Gallbladder Appendix Back surgery 1997 Hysterectomy REVIEW OF SYSTEMS: CONSTITUTIONAL: Fever, Fatigue. HEENT: No sinus drainage, no sore throat. RESPIRATORY: No cough, no congestion. CARDIOVASCULAR: No atypical chest pain for coronary artery disease. No angina, CHF symptoms, palpitations or shortness of breath. GASTROINTESTINAL: No melena or abdominal pain. No GERD. GENITOURINARY: No hematuria, no prostatism, no polyuria. SYRUP MIXER: No blackout, no dizziness, no headache, no double vision. MUSCULOSKELETAL: No osteoarthritis pain, no joint swelling. ENDOCRINE: No weight loss, no weight gain. SKIN: Not dry, no rash. PSYCHIATRIC: Not anxious, no depression, no suicidal thoughts, no homicidal thoughts. SOCIAL HISTORY: Marital Status: . Alcohol Usage: No. Tobacco Usage: No. FAMILY HISTORY: Father age 64 [place] Mother age 53 Cancer of colon Brother 1 Sister 3 MEDICATIONS: Aspirin 81mg daily Lasix 40mg daily K-tab 10meq daily Benicar 40mg daily Bystolic 10mg daily Pravachol 40mg daily Xanax 0.25mg PRN Requip 1mg at HS Lipitor 40mg daily Celexa 30mg daily Elavil 25mg Po daily Protonix 40mg QAM ALLERGIES: Tramadol nausea Codeine Latex PHYSICAL EXAMINATION: V/S: Pulse 90, blood pressure 142/80, temperature 97.5, oxygen saturation 98%. BMI 33.3, height 5'4, weight 194.4 GENERAL APPEARANCE: Oriented times three. Pale. HEENT: Normal. Dry mucus membranes. NECK: No JVP, no bruits. RESPIRATORY: Lungs are clear. CARDIOVASCULAR: S1, S2, no S3, no murmur. No cyanosis, clubbing. No ascites. GI/ABDOMEN: Right and left lower quadrant. Bowel sounds are active. EXTREMITIES: edema, pulses +1, equal. SYRUP MIXER: Deep tendon reflexes, sensory, motor and gait all normal. RECTAL: Dr. Clifton 03/22/PELVIC: Hysterectomy Mammogram 06/2020 [facility]. ASSESSMENT: 1. Acute sigmoid diverticulitis 2. Dehydration 3. Abdominal pain 4. Dyslipidemia 5. Hypertension 6. TIA 7. Paraspinal muscle spasms 8. Right total hip replacement 02/21 9. Right shoulder pain- Dr. Martini 10.Left shoulder surgery 01/20 11.Bilateral knee osteoarthritis 12.Esophageal spasm 13.Headaches 14.Left lower cheek numbness 15.Ventral hernia - Dr. Bender 16.Status post Cholecystectomy Dr. Bender 17.Bilateral total knee replacement 04/20 18.Insomnia 19.Vertigo 20.SUSAN 21.Coronary angio 01/19-OK PLAN: 1. The patient to have respiratory panel PCR at drive through 2. Routine telemetry orders -No cardiac markers 3. CBC and CMP today and daily 4. Normal saline IV at 75cc an hour 5. Cipro 750mg IV BID 6. Flagyl 500mg IV Q 8 hours 7. Zofran 4mg IV Q 6 hours PRN 8. Dilaudid 1-2mg IV Q 4 hours PRN 9. [place]/low residual diet 10.Continue home medications 11.Urinalysis 12.Chest x-ray TIME SPENT: More than 70 minutes. MTDD
[2021-04-15] MEDS: SODIUM CHLORIDE 1,000 ML IV SCH (14:52)
[2021-04-15] MEDS: ELAVIL PO SCH (20:05)
[2021-04-15] MEDS: REQUIP PO SCH (20:05)
[2021-04-16] MEDS: DILAUDID 1 MG/ML SYRINGE IVP PRN ×3 (00:42→20:25)
[2021-04-16 05:53] LABS: BASOPHILS # (AUTO) 0.1 K/uL (0-0.2); BASOPHILS % (AUTO) 0.6 % (0.0-3.0); EOSINOPHILS # (AUTO) 0.2 K/ul (0.0-0.7); EOSINOPHILS % (AUTO) 2.1 % (0.0-7.0); HEMOGLOBIN 10.7 g/dl (12.0-16.0); IMMATURE GRANULOCYTE % (AUTO) 0.2 % (0.0-5.0); LYMPHOCYTES # (AUTO) 1.6 K/uL (0.60-3.4); LYMPHOCYTES % (AUTO) 17.6 (10.0-50.0); MEAN CORPUSCULAR HEMOGLOBIN 28.8 pg (27.0-31.0); MEAN CORPUSCULAR HGB CONC 30.6 (31.8-35.4); MEAN CORPUSCULAR VOLUME 94.1 fl (81.0-99.0); MONOCYTES # (AUTO) 0.7 K/uL (0.4-2.0); MONOCYTES % (AUTO) 8.1 (0-10); NEUTROPHILS # (AUTO) 6.4 K/ul (2.0-6.9); NEUTROPHILS % (AUTO) 71.4 % (42.2-75.2); PLATELET COUNT 292 10^3/uL (140-440); RDW COEFFICIENT OF VARIATION 13.4 % (11.6-14.8); RED BLOOD COUNT 3.72 10^6/ul (4.20-5.40)
[2021-04-16] MEDS: LASIX TAB PO SCH (05:56)
[2021-04-16] MEDS: FLAGYL 500 MG/100 ML 500 MG/100 ML BAG IV SCH ×3 (05:56→20:05)
[2021-04-16] MEDS: SODIUM CHLORIDE 1,000 ML IV SCH ×3 (05:56→10:00)
[2021-04-16 06:04] LABS: ALANINE AMINOTRANSFERASE 26.3 U/L (0-35); ALBUMIN 3.97 g/dL (3.5-5.0); ALKALINE PHOSPHATASE 106.4 U/L (53-141); ASPARTATE AMINO TRANSFERASE 28.2 U/L (14-36); BILIRUBIN,TOTAL 0.44 mg/dL (0.2-1.3); BLOOD UREA NITROGEN 20.5 mg/dL (7-17); CALCIUM 8.42 mg/dL (8.4-10.2); CHLORIDE 101.9 mmol/L (98-107); CREATININE 1.4 mg/dL (0.60-1.30); GLUCOSE 102.5 mg/dL (74-106); POTASSIUM 4.51 mmol/L (3.5-5.1); SODIUM 138.7 mmol/L (134.5-145); TOTAL PROTEIN 6.62 g/dL (6.3-8.2)
[2021-04-16] MEDS: CIPRO 400 MG/200 ML D5W 400 MG/200 ML BAG IV SCH ×2 (08:36→21:43)
[2021-04-16] MEDS: LIPITOR PO SCH (08:40)
[2021-04-16] MEDS: BYSTOLIC PO SCH (08:40)
[2021-04-16] MEDS: ASPIRIN EC PO SCH (08:40)
[2021-04-16] MEDS: BENICAR PO SCH (08:40)
[2021-04-16] MEDS: CELEXA PO SCH (08:41)
[2021-04-16] MEDS: MICRO-K CAP PO SCH (08:41)
--- NOTE | 2021-04-16 09:01 | PCM.PROG ---
Attending Provider: ATTENDING PROVIDER: Dr. DARIEN STARK This patient is seen with Tiffanie Pedroza, Nurse Practitioner. DATE OF SERVICE: 04/16/21 SUBJECTIVE: This 71 year old /WHITE F was hospitalized 04/14/21. The patient is resting comfortably. Still in significant amount of lower abdominal pain. Kidney function is elevated today. She has developed slight cough. Low grade temperature last night. REVIEW OF SYSTEMS: CONSTITUTIONAL: No night sweats. Fatigue. Fever. HEENT: Eyes: No visual changes. No eye pain. No eye discharge. ENT: No runny nose. No epistaxis. No sinus pain. No odynophagia. No congestion. RESPIRATORY: Cough, no congestion. No hemoptysis. No shortness of breath. CARDIOVASCULAR: No angina symptoms. No CHF symptoms. No atypical chest pain for CAD. No palpitations. No orthopnea.. GASTROINTESTINAL: Abdominal pain. No nausea or vomiting. No diarrhea or constipation. No hematemesis. No hematochezia. GENITOURINARY: No urgency. No frequency. No dysuria. No hematuria. No obstructive symptoms. No discharge. No pain. No significant abnormal bleeding. MUSCULOSKELETAL: No musculoskeletal pain; no joint swelling. NEUROLOGICAL: Awake, alert, oriented to time, place and person. No headache. No neck pain. No syncope. No seizures. No dizziness. PSYCHIATRIC: Not anxious. No depression. No suicidal thoughts. No homicidal thoughts. SKIN: No rash. No lesions. No wounds. ENDOCRINE: No unexplained weight loss. No weight gain. HEMATOLOGIC/LYMPHATIC: No anemia. No purpura. No petechiae. No prolonged or excessive bleeding. No palpable lymph nodes. PHYSICAL EXAMINATION: GENERAL: The patient is awake, alert and oriented, sitting in bed in no distress. VITAL SIGNS: Temperature 98.4 F, Pulse 73, Respiratory Rate 18, BP 128/69, Pulse Ox 96% HEENT: Head normocephalic, atraumatic. Eyes: Extraocular muscles are intact. Pupils are equal, round and reactive to light and accommodation. Ears: No lesions. Nose appeared normal. Throat: No exudate or erythema. NECK: Supple. No JVD, no carotid bruit. No lymphadenopathy or thyromegaly. LUNGS: Diminished breath sounds. Clear to auscultation. Percussion note normal. Chest symmetrical. HEART: S1, S2, no S3. No murmurs. No cyanosis or clubbing. No ascites. Pulses: Dorsalis pedis and posterior tibial pulses +1 to +2 both sides. ABDOMEN: Soft. Bilateral lower quadrant abdominal tenderness. Bowel sounds active. No CVA tenderness. No mass felt. EXTREMITIES: No edema. Full range of motion of all extremities, equal. NEUROLOGIC: No focal deficit. Cranial nerves II through XII are grossly intact. No headache. No double vision. SKIN: Not dry. Intact. Turgor-normal. LYMPHATIC: No palpable lymph nodes/no lymphedema. MUSCULOSKELETAL: Normal joints with no swelling. Muscle tone is normal. LAB REVIEW: 04/16/21 05:20 04/16/21 05:20 04/16/21 05:20: Sodium 138.7, Potassium 4.51, Chloride 101.9, Carbon Dioxide 29.0, Anion Gap 12.31, BUN 20.5 H, Creatinine 1.40 H D, Estimated GFR (MDRD) 37.00, BUN/Creatinine Ratio 14.64, Glucose 102.5, Calcium 8.42, Total Bilirubin 0.44, AST 28.2, ALT 26.3, Alkaline Phosphatase 106.4, Total Protein 6.62, Albumin 3.97, Globulin 2.65, Albumin/Globulin Ratio 1.49 04/16/21 05:20: WBC 9.00, RBC 3.72 L, Hgb 10.7 L, Hct 35.0 L, MCV 94.1, MCH 28.8, MCHC 30.6 L, RDW Coeff of [place] 13.4, Plt Count 292, Immature Gran % (Auto) 0.2, Neut % (Auto) 71.4, Lymph % (Auto) 17.6, [place] % (Auto) 8.1, Eos % (Auto) 2.1, Baso % (Auto) 0.6, Neut # (Auto) 6.4, Lymph # (Auto) 1.6, [place] # (Auto) 0.7, Eos # (Auto) 0.2, Baso # (Auto) 0.1, Immature Gran # (Auto) 0.0 ASSESSMENT: Please see below. 1. Acute sigmoid diverticulosis 2. Dehydration 3. Cough 4. Renal Azotemia PLAN: 1. Encourage to take Dilaudid and Zofran regularly 2. Will swab for COVID with new development of cough 3. Increase fluids to 100cc an hour. Plan and coordination of the patient's care discussed in the presence of Case Santhosh rahman and nurse. SCRIBED BY: Nila SHAIKH scribed while in presence of service performed by Dr. Stark/Tiffanie Pedroza APRN on 04/16/21 ([id number])
[2021-04-16] MEDS ORDERED: DULCOLAX RC ONE (09:14)
[2021-04-16] MEDS: ZOFRAN 4 MG/2 ML IVP PRN (09:14)
[2021-04-16 11:08] LABS: BORDETELLA PARAPERTUSSIS (PCR) NOT DETECTED (NOT DETECT); BORDETELLA PERTUSSIS (PCR) NOT DETECTED (NOT DETECT); CHLAMYDIA PNEUMONIAE (PCR) NOT DETECTED (NOT DETECT); CORONAVIRUS 229E (PCR) NOT DETECTED (NOT DETECT); CORONAVIRUS HKU1 (PCR) NOT DETECTED (NOT DETECT); CORONAVIRUS NL63 (PCR) NOT DETECTED (NOT DETECT); CORONAVIRUS OC43 (PCR) NOT DETECTED (NOT DETECT); HUMAN METAPNEUMOVIRUS (PCR) NOT DETECTED (NOT DETECT); HUMAN RHINOVIRUS/ENTEROV (PCR) NOT DETECTED (NOT DETECT); INFLUENZA B (PCR) NOT DETECTED (NOT DETECT); MYCOPLASMA PNEUMONIAE (PCR) NOT DETECTED (NOT DETECT); PARAINFLUENZA VIRUS 1 (PCR) NOT DETECTED (NOT DETECT); PARAINFLUENZA VIRUS 2 (PCR) NOT DETECTED (NOT DETECT); PARAINFLUENZA VIRUS 3 (PCR) NOT DETECTED (NOT DETECT); PARAINFLUENZA VIRUS 4 (PCR) NOT DETECTED (NOT DETECT); RESPIRATORY SYNCYTIAL V (PCR) NOT DETECTED (NOT DETECT); SARS_COV_2 (PCR) NOT DETECTED (NOT DETECT)
[2021-04-16 11:56] LABS: ADENOVIRUS (PCR) NOT DETECTED (NOT DETECT)
--- NOTE | 2021-04-16 14:44 | PN ---
DATE OF SERVICE: 04/15/2021 SUBJECTIVE: 71 year old female hospitalized with acute sigmoid diverticulitis and dehydration. The patient says that she feeling better. Abdominal pain appears to be resolving. The patient still hasn't moved the bowels. REVIEW OF SYSTEMS: CONSTITUTIONAL: No night sweats. No fatigue, malaise, lethargy. No fever or chills. HEENT: Eyes: No visual changes. No eye pain. No eye discharge. ENT: No runny nose. No epistaxis. No sinus pain. No sore throat. No odynophagia. No congestion. RESPIRATORY: No cough, no congestion. No hemoptysis. No shortness of breath. CARDIOVASCULAR: No angina symptoms. No CHF symptoms. No atypical chest pain for CAD. No palpitations. No PND. No orthopnea. GASTROINTESTINAL: No abdominal pain. No nausea or vomiting. No diarrhea or constipation. No hematemesis. No hematochezia. GENITOURINARY: No urgency. No frequency. No dysuria. No hematuria. No obstructive symptoms. No discharge. No pain. No significant abnormal bleeding. MUSCULOSKELETAL: No musculoskeletal pain; no joint swelling. NEUROLOGICAL: No headache. No neck pain. No syncope. No seizures. No dizziness. PSYCHIATRIC: Not anxious. No depression. No suicidal thoughts. No homicidal thoughts. SKIN: No rash. No lesions. No wounds. ENDOCRINE: No unexplained weight loss. No weight gain. HEMATOLOGIC/LYMPHATIC: No anemia. No purpura. No petechiae. No prolonged or excessive bleeding. No palpable lymph nodes. PHYSICAL EXAMINATION: VITAL SIGNS: Temperature 97.5, pulse 57, respiratory rate 18, blood pressure 122/70 and pulse ox 97%. HEENT: Head normocephalic, atraumatic. Eyes: Extraocular muscles are intact. Pupils are equal, round and reactive to light and accommodation. Ears: No lesions. Nose appeared normal. Throat: No exudate or erythema. NECK: Supple. No JVD, no carotid bruit. No lymphadenopathy or thyromegaly. LUNGS: Decreased breath sounds but clear to auscultation. Percussion note normal. Chest symmetrical. HEART: S1, S2, no S3. No murmurs. No cyanosis or clubbing. No ascites. Pulses: Dorsalis pedis and posterior tibial pulses +1 to +2 bilaterally. ABDOMEN: Soft. Nontender. Bowel sounds active. No CVA tenderness. No mass felt. EXTREMITIES: No edema. Full range of motion of all extremities, equal. NEUROLOGIC: No focal deficit. Cranial nerves II through XII are grossly intact. No headache. No double vision. SKIN: Not dry. Intact. Turgor - normal. LYMPHATIC: No palpable lymph nodes/no lymphedema. MUSCULOSKELETAL: Normal joints with no swelling. Muscle tone is normal. LABS: Hgb 10.9, hct 34, WBC 6,400 normal differential, creatinine 0.6, BUN 10, potassium 3.8 ASSESSMENT: 1. Acute diverticulitis, sigmoid seems to be resolving some 2. Dehydration, resolved with good skin turgor 3. Kidney functions normal PLAN: 1. Dulcolax suppository for constipation 2. Continue antibiotics 3. IV fluids TIME SPENT: More than 30 minutes. Plan and coordination of the patient's care discussed in the presence of nurse. FEMI
[2021-04-16] MEDS: ELAVIL PO SCH (20:20)
[2021-04-16] MEDS: REQUIP PO SCH (20:22)
[2021-04-17] MEDS: SODIUM CHLORIDE 1,000 ML IV SCH ×3 (01:04→14:17)
[2021-04-17] MEDS: FLAGYL 500 MG/100 ML 500 MG/100 ML BAG IV SCH ×3 (04:33→21:13)
[2021-04-17 06:24] LABS: ALANINE AMINOTRANSFERASE 23.6 U/L (0-35); ALBUMIN 3.87 g/dL (3.5-5.0); ALKALINE PHOSPHATASE 97.5 U/L (53-141); ASPARTATE AMINO TRANSFERASE 33.1 U/L (14-36); BILIRUBIN,TOTAL 0.52 mg/dL (0.2-1.3); BLOOD UREA NITROGEN 17.7 mg/dL (7-17); CALCIUM 8.79 mg/dL (8.4-10.2); CARBON DIOXIDE 28.8 mmol/L (22-30.0); CHLORIDE 102.8 mmol/L (98-107); CREATININE 0.84 mg/dL (0.60-1.30); POTASSIUM 4.35 mmol/L (3.5-5.1); SODIUM 137.9 mmol/L (134.5-145); TOTAL PROTEIN 6.52 g/dL (6.3-8.2)
[2021-04-17 06:28] LABS: BASOPHILS # (AUTO) 0.1 K/uL (0-0.2); BASOPHILS % (AUTO) 0.6 % (0.0-3.0); EOSINOPHILS # (AUTO) 0.2 K/ul (0.0-0.7); EOSINOPHILS % (AUTO) 1.7 % (0.0-7.0); HEMATOCRIT 32.7 % (37.0-47.0); HEMOGLOBIN 10.5 g/dl (12.0-16.0); IMMATURE GRANULOCYTE % (AUTO) 0.2 % (0.0-5.0); LYMPHOCYTES # (AUTO) 1.7 K/uL (0.60-3.4); LYMPHOCYTES % (AUTO) 19.3 (10.0-50.0); MEAN CORPUSCULAR HEMOGLOBIN 29.5 pg (27.0-31.0); MEAN CORPUSCULAR HGB CONC 32.1 (31.8-35.4); MEAN CORPUSCULAR VOLUME 91.9 fl (81.0-99.0); MONOCYTES # (AUTO) 0.6 K/uL (0.4-2.0); MONOCYTES % (AUTO) 6.8 (0-10); NEUTROPHILS # (AUTO) 6.4 K/ul (2.0-6.9); NEUTROPHILS % (AUTO) 71.4 % (42.2-75.2); PLATELET COUNT 246 10^3/uL (140-440); RED BLOOD COUNT 3.56 10^6/ul (4.20-5.40); WHITE BLOOD COUNT 8.91 K/ul (4.6-10.2)
[2021-04-17] MEDS: BENICAR PO SCH (09:08)
[2021-04-17] MEDS: BYSTOLIC PO SCH (09:08)
[2021-04-17] MEDS: CELEXA PO SCH (09:08)
[2021-04-17] MEDS: ASPIRIN EC PO SCH (09:08)
[2021-04-17] MEDS: CIPRO 400 MG/200 ML D5W 400 MG/200 ML BAG IV SCH ×2 (09:09→22:31)
[2021-04-17] MEDS: LIPITOR PO SCH (09:09)
[2021-04-17] MEDS: MICRO-K CAP PO SCH (09:09)
[2021-04-17] MEDS ORDERED: ULTRAM PO PRN (09:23)
[2021-04-17] MEDS ORDERED: DULCOLAX PO ONE (09:23)
--- NOTE | 2021-04-17 10:25 | PCM.PROG ---
Attending Provider: ATTENDING PROVIDER: Dr. DARIEN BRAR DATE OF SERVICE: 04/17/21 SUBJECTIVE: This 71 year old /WHITE F was hospitalized 04/14/21 with acute sigmoid diverticulitis. Condition seem to have improved. She doesn't have any abdominal pain, mild Diarrhea and mild nausea. Appetite seems to be coming back. REVIEW OF SYSTEMS: CONSTITUTIONAL: No night sweats. No fatigue, malaise, lethargy. No fever or chills. HEENT: Eyes: No visual changes. No eye pain. No eye discharge. ENT: No runny nose. No epistaxis. No sinus pain. No odynophagia. No congestion. RESPIRATORY: No cough, no congestion. No hemoptysis. No shortness of breath. CARDIOVASCULAR: No angina symptoms. No CHF symptoms. No atypical chest pain for CAD. No palpitations. No orthopnea.. GASTROINTESTINAL: No abdominal pain. No nausea or vomiting. No diarrhea or constipation. No hematemesis. No hematochezia. GENITOURINARY: No urgency. No frequency. No dysuria. No hematuria. No obstructive symptoms. No discharge. No pain. No significant abnormal bleeding. MUSCULOSKELETAL: No musculoskeletal pain; no joint swelling. NEUROLOGICAL: Awake, alert, oriented to time, place and person. No headache. No neck pain. No syncope. No seizures. No dizziness. PSYCHIATRIC: Not anxious. No depression. No suicidal thoughts. No homicidal thoughts. SKIN: No rash. No lesions. No wounds. ENDOCRINE: No unexplained weight loss. No weight gain. HEMATOLOGIC/LYMPHATIC: No anemia. No purpura. No petechiae. No prolonged or excessive bleeding. No palpable lymph nodes. PHYSICAL EXAMINATION: GENERAL: The patient is awake, alert and oriented, lying in bed in no distress. VITAL SIGNS: Temperature 98.9 F, Pulse 72, Respiratory Rate 16, BP 137/75, Pulse Ox 96% HEENT: Head normocephalic, atraumatic. Eyes: Extraocular muscles are intact. Pupils are equal, round and reactive to light and accommodation. Ears: No lesions. Nose appeared normal. Throat: No exudate or erythema. NECK: Supple. No JVD, no carotid bruit. No lymphadenopathy or thyromegaly. LUNGS: Clear to auscultation. Percussion note normal. Chest symmetrical. HEART: S1, S2, no S3. No murmurs. No cyanosis or clubbing. No ascites. Pulses: Dorsalis pedis and posterior tibial pulses +1 to +2 both sides. ABDOMEN: Soft. Non-tender. Bowel sounds active. No CVA tenderness. No mass felt. EXTREMITIES: No edema. Full range of motion of all extremities, equal. NEUROLOGIC: No focal deficit. Cranial nerves II through XII are grossly intact. No headache, no double vision or headache. SKIN: Warm and dry. Intact. Turgor-normal. LYMPHATIC: No palpable lymph nodes/no lymphedema. MUSCULOSKELETAL: Normal joints with no swelling. Muscle tone is normal. LAB REVIEW: 04/17/21 05:38 04/17/21 05:38 04/17/21 05:38: Sodium 137.9, Potassium 4.35, Chloride 102.8, Carbon Dioxide 28.8, Anion Gap 10.65, BUN 17.7 H, Creatinine 0.84 D, Estimated GFR (MDRD) 67.00, BUN/Creatinine Ratio 21.07, Glucose 103.0, Calcium 8.79, Total Bilirubin 0.52, AST 33.1, ALT 23.6, Alkaline Phosphatase 97.5, Total Protein 6.52, Albumin 3.87, Globulin 2.65, Albumin/Globulin Ratio 1.46 04/17/21 05:38: WBC 8.91, RBC 3.56 L, Hgb 10.5 L, Hct 32.7 L, MCV 91.9, MCH 29.5, MCHC 32.1, RDW Coeff of Kendell 13.0, Plt Count 246, Immature Gran % (Auto) 0.2, Neut % (Auto) 71.4, Lymph % (Auto) 19.3, Stafford % (Auto) 6.8, Eos % (Auto) 1.7, Baso % (Auto) 0.6, Neut # (Auto) 6.4, Lymph # (Auto) 1.7, Stafford # (Auto) 0.6, Eos # (Auto) 0.2, Baso # (Auto) 0.1, Immature Gran # (Auto) 0.0 04/16/21 10:10: Adenovirus (PCR) Not detected, B. pertussis DNA (PCR) Not detected, B.parapertussis DNA PCR Not detected, C. pneumoniae DNA (PCR) Not detected, Coronavirus OC43 (PCR) Not detected, Coronavirus HKU1 (PCR) Not detected, Coronavirus 229E (PCR) Not detected, Coronavirus NL63 (PCR) Not detected, Human Metapneumovir PCR Not detected, Influenza Type A (PCR) Not detected, Influenza B (RT-PCR) Not detected, M. pneumoniae (PCR) Not detected, Parainfluenza 1 (PCR) Not detected, Parainfluenza 2 (PCR) Not detected, Parainfluenza 3 (PCR) Not detected, Parainfluenza 4 (PCR) Not detected, RSV (PCR) Not detected, Entero/Rhino (PCR) Not detected, SARS-CoV-2 (PCR) Not detected ASSESSMENT: Please see below. 1. Diverticulosis, sigmoid seems to be resolved clinically PLAN: 1. Bowel movement 2. Dulcolax PO or suppository 3. The patient should be up and about 4. Discontinue IV fluids 5. Continue antibiotics 6. Tramadol 50mg PO TID PRN 7. Discontinue Dilaudid Plan and coordination of the patient's care discussed in the presence of Field Foreman and nurse. CONDITION: Stable SCRIBED BY: Nila SHAIKH scribed while in presence of service performed by Dr. DARIEN BRAR on 04/17/21 ([id number])
--- NOTE | 2021-04-17 13:35 | PN ---
DATE OF SERVICE: 04/16/2021 SUBJECTIVE: The patient was seen and examined with the Nurse Practitioner. The patient's condition is improving and her pain is less. She has tolerated the oral intake. No vomiting. TIME SPENT: More than 30 minutes. Plan and coordination of the patient's care discussed in the presence of nurse. FEMI
[2021-04-17] MEDS: REQUIP PO SCH (21:15)
[2021-04-17] MEDS: ELAVIL PO SCH (21:16)
[2021-04-17] MEDS: ZOFRAN 4 MG/2 ML IVP PRN (21:30)
[2021-04-18] MEDS: FLAGYL 500 MG/100 ML 500 MG/100 ML BAG IV SCH ×3 (05:32→20:21)
[2021-04-18 05:48] LABS: BASOPHILS # (AUTO) 0.1 K/uL (0-0.2); BASOPHILS % (AUTO) 0.6 % (0.0-3.0); EOSINOPHILS # (AUTO) 0.3 K/ul (0.0-0.7); EOSINOPHILS % (AUTO) 3.6 % (0.0-7.0); HEMATOCRIT 33.6 % (37.0-47.0); HEMOGLOBIN 10.9 g/dl (12.0-16.0); IMMATURE GRANULOCYTE % (AUTO) 0.2 % (0.0-5.0); LYMPHOCYTES # (AUTO) 1.5 K/uL (0.60-3.4); LYMPHOCYTES % (AUTO) 16.8 (10.0-50.0); MEAN CORPUSCULAR HEMOGLOBIN 29.2 pg (27.0-31.0); MEAN CORPUSCULAR HGB CONC 32.4 (31.8-35.4); MEAN CORPUSCULAR VOLUME 90.1 fl (81.0-99.0); MONOCYTES # (AUTO) 0.8 K/uL (0.4-2.0); MONOCYTES % (AUTO) 8.4 (0-10); NEUTROPHILS # (AUTO) 6.4 K/ul (2.0-6.9); NEUTROPHILS % (AUTO) 70.4 % (42.2-75.2); PLATELET COUNT 250 10^3/uL (140-440); RED BLOOD COUNT 3.73 10^6/ul (4.20-5.40); WHITE BLOOD COUNT 9.09 K/ul (4.6-10.2)
[2021-04-18 06:05] LABS: ALANINE AMINOTRANSFERASE 21.7 U/L (0-35); ALBUMIN 3.65 g/dL (3.5-5.0); ALKALINE PHOSPHATASE 101.3 U/L (53-141); BILIRUBIN,TOTAL 0.49 mg/dL (0.2-1.3); BLOOD UREA NITROGEN 13.2 mg/dL (7-17); CALCIUM 8.94 mg/dL (8.4-10.2); CARBON DIOXIDE 33.4 mmol/L (22-30.0); CHLORIDE 103.4 mmol/L (98-107); CREATININE 0.79 mg/dL (0.60-1.30); GLUCOSE 109.8 mg/dL (74-106); POTASSIUM 3.71 mmol/L (3.5-5.1); SODIUM 141.5 mmol/L (134.5-145); TOTAL PROTEIN 6.04 g/dL (6.3-8.2)
[2021-04-18] MEDS: BENICAR PO SCH (09:01)
[2021-04-18] MEDS: CIPRO 400 MG/200 ML D5W 400 MG/200 ML BAG IV SCH (09:01)
[2021-04-18] MEDS: BYSTOLIC PO SCH (09:01)
[2021-04-18] MEDS: MICRO-K CAP PO SCH (09:02)
[2021-04-18] MEDS: CELEXA PO SCH (09:02)
[2021-04-18] MEDS: ASPIRIN EC PO SCH (09:03)
[2021-04-18] MEDS: LIPITOR PO SCH (09:03)
[2021-04-18] MEDS: ELAVIL PO SCH (20:21)
[2021-04-18] MEDS: CIPRO PO SCH (20:21)
[2021-04-18] MEDS: REQUIP PO SCH (20:21)
[2021-04-18 21:35] VITALS: TEMP 97.7
[2021-04-19 05:38] VITALS: BP 135/78
[2021-04-19] MEDS: FLAGYL 500 MG/100 ML 500 MG/100 ML BAG IV SCH (05:40)
[2021-04-19] MEDS: SODIUM CHLORIDE 1,000 ML IV SCH (05:40)
[2021-04-19] MEDS: CIPRO PO SCH (05:40)
[2021-04-19 05:45] LABS: BASOPHILS # (AUTO) 0.1 K/uL (0-0.2); BASOPHILS % (AUTO) 0.6 % (0.0-3.0); EOSINOPHILS # (AUTO) 0.4 K/ul (0.0-0.7); EOSINOPHILS % (AUTO) 4.9 % (0.0-7.0); HEMATOCRIT 33.5 % (37.0-47.0); HEMOGLOBIN 10.9 g/dl (12.0-16.0); IMMATURE GRANULOCYTE % (AUTO) 0.4 % (0.0-5.0); LYMPHOCYTES # (AUTO) 1.6 K/uL (0.60-3.4); LYMPHOCYTES % (AUTO) 20.5 (10.0-50.0); MEAN CORPUSCULAR HEMOGLOBIN 29.5 pg (27.0-31.0); MEAN CORPUSCULAR HGB CONC 32.5 (31.8-35.4); MEAN CORPUSCULAR VOLUME 90.5 fl (81.0-99.0); MONOCYTES # (AUTO) 0.7 K/uL (0.4-2.0); MONOCYTES % (AUTO) 8.3 (0-10); NEUTROPHILS # (AUTO) 5.2 K/ul (2.0-6.9); NEUTROPHILS % (AUTO) 65.3 % (42.2-75.2); PLATELET COUNT 270 10^3/uL (140-440); RDW COEFFICIENT OF VARIATION 13.2 % (11.6-14.8); WHITE BLOOD COUNT 7.99 K/ul (4.6-10.2)
[2021-04-19 05:58] LABS: ALANINE AMINOTRANSFERASE 17.4 U/L (0-35); ALBUMIN 3.6 g/dL (3.5-5.0); ALKALINE PHOSPHATASE 103.1 U/L (53-141); ASPARTATE AMINO TRANSFERASE 17.4 U/L (14-36); BILIRUBIN,TOTAL 0.27 mg/dL (0.2-1.3); BLOOD UREA NITROGEN 13.3 mg/dL (7-17); CALCIUM 8.95 mg/dL (8.4-10.2); CARBON DIOXIDE 32.8 mmol/L (22-30.0); CHLORIDE 105.4 mmol/L (98-107); CREATININE 0.89 mg/dL (0.60-1.30); GLUCOSE 106.8 mg/dL (74-106); POTASSIUM 3.87 mmol/L (3.5-5.1); TOTAL PROTEIN 6.19 g/dL (6.3-8.2)
[2021-04-19] MEDS: ASPIRIN EC PO SCH (08:55)
[2021-04-19] MEDS: BENICAR PO SCH (08:55)
[2021-04-19] MEDS: CELEXA PO SCH (08:56)
[2021-04-19] MEDS: MICRO-K CAP PO SCH (08:57)
[2021-04-19] MEDS: LIPITOR PO SCH (08:57)
[2021-04-19] MEDS: BYSTOLIC PO SCH (08:58)
[2021-04-19] MEDS ORDERED: FLAGYL PO SCH (13:00)
--- NOTE | 2021-04-21 11:06 | PN ---
DATE OF SERVICE: 04/18/2021 SUBJECTIVE: 71 year old white female hospitalized with acute sigmoid diverticulitis. The patient's condition is improved and she is feeling better. Bowel movements are regular and she is getting her strength back. REVIEW OF SYSTEMS: CONSTITUTIONAL: No night sweats. No fatigue, malaise, lethargy. No fever or chills. HEENT: Eyes: No visual changes. No eye pain. No eye discharge. ENT: No runny nose. No epistaxis. No sinus pain. No sore throat. No odynophagia. No congestion. RESPIRATORY: No cough, no congestion. No hemoptysis. No shortness of breath. CARDIOVASCULAR: No angina symptoms. No CHF symptoms. No atypical chest pain for CAD. No palpitations. No PND. No orthopnea. GASTROINTESTINAL: No abdominal pain. No nausea or vomiting. No diarrhea or constipation. No hematemesis. No hematochezia. GENITOURINARY: No urgency. No frequency. No dysuria. No hematuria. No obstructive symptoms. No discharge. No pain. No significant abnormal bleeding. MUSCULOSKELETAL: No musculoskeletal pain; no joint swelling. NEUROLOGICAL: No headache. No neck pain. No syncope. No seizures. No dizziness. PSYCHIATRIC: Not anxious. No depression. No suicidal thoughts. No homicidal thoughts. SKIN: No rash. No lesions. No wounds. ENDOCRINE: No unexplained weight loss. No weight gain. HEMATOLOGIC/LYMPHATIC: No anemia. No purpura. No petechiae. No prolonged or excessive bleeding. No palpable lymph nodes. PHYSICAL EXAMINATION: VITAL SIGNS: Temperature 97.3, pulse 59, respiratory rate 18, blood pressure 140/72 and pulse ox 96%. HEENT: Head normocephalic, atraumatic. Eyes: Extraocular muscles are intact. Pupils are equal, round and reactive to light and accommodation. Ears: No lesions. Nose appeared normal. Throat: No exudate or erythema. NECK: Supple. No JVD, no carotid bruit. No lymphadenopathy or thyromegaly. LUNGS: Clear to auscultation. Percussion note normal. Chest symmetrical. HEART: S1, S2, no S3. No murmurs. No cyanosis or clubbing. No ascites. Pulses: Dorsalis pedis and posterior tibial pulses +1 to +2 bilaterally. ABDOMEN: Soft. Nontender. Bowel sounds active. No CVA tenderness. No mass felt. EXTREMITIES: No edema. Full range of motion of all extremities, equal. NEUROLOGIC: No focal deficit. Cranial nerves II through XII are grossly intact. No headache. No double vision. SKIN: Not dry. Intact. Turgor - normal. LYMPHATIC: No palpable lymph nodes/no lymphedema. MUSCULOSKELETAL: Normal joints with no swelling. Muscle tone is normal. ASSESSMENT: 1. Acute diverticulitis sigmoid seems to have resolved PLAN: 1. Continue antibiotics 2. Diet discussed for diverticulitis and diverticulosis CONDITION: Stable. TIME SPENT: More than 30 minutes. Plan and coordination of the patient's care discussed in the presence of nurse. FEMI
--- NOTE | 2021-04-21 11:10 | PN ---
DATE OF SERVICE: 04/19/2021 SUBJECTIVE: 71 year old white female hospitalized with acute diverticulitis of sigmoid colon. The patient's condition has improved. She is up and about and better. She had normal bowel movement. Appetite is normal. No abdominal pain at all. REVIEW OF SYSTEMS: CONSTITUTIONAL: No night sweats. No fatigue, malaise, lethargy. No fever or chills. HEENT: Eyes: No visual changes. No eye pain. No eye discharge. ENT: No runny nose. No epistaxis. No sinus pain. No sore throat. No odynophagia. No congestion. RESPIRATORY: No cough, no congestion. No hemoptysis. No shortness of breath. CARDIOVASCULAR: No angina symptoms. No CHF symptoms. No atypical chest pain for CAD. No palpitations. No PND. No orthopnea. GASTROINTESTINAL: No abdominal pain. No nausea or vomiting. No diarrhea or constipation. No hematemesis. No hematochezia. GENITOURINARY: No urgency. No frequency. No dysuria. No hematuria. No obstructive symptoms. No discharge. No pain. No significant abnormal bleeding. MUSCULOSKELETAL: No musculoskeletal pain; no joint swelling. NEUROLOGICAL: No headache. No neck pain. No syncope. No seizures. No dizziness. PSYCHIATRIC: Not anxious. No depression. No suicidal thoughts. No homicidal thoughts. SKIN: No rash. No lesions. No wounds. ENDOCRINE: No unexplained weight loss. No weight gain. HEMATOLOGIC/LYMPHATIC: No anemia. No purpura. No petechiae. No prolonged or excessive bleeding. No palpable lymph nodes. PHYSICAL EXAMINATION: VITAL SIGNS: Temperature 97.7, pulse 93, respiratory rate 18, blood pressure 135/75 and pulse ox 95%. HEENT: Head normocephalic, atraumatic. Eyes: Extraocular muscles are intact. Pupils are equal, round and reactive to light and accommodation. Ears: No lesions. Nose appeared normal. Throat: No exudate or erythema. NECK: Supple. No JVD, no carotid bruit. No lymphadenopathy or thyromegaly. LUNGS: Decreased breath sounds but clear to auscultation. Percussion note normal. Chest symmetrical. HEART: S1, S2, no S3. No murmurs. No cyanosis or clubbing. No ascites. Pulses: Dorsalis pedis and posterior tibial pulses +1 to +2 bilaterally. ABDOMEN: Soft. Nontender. Bowel sounds active. No CVA tenderness. No mass felt. EXTREMITIES: No edema. Full range of motion of all extremities, equal. NEUROLOGIC: No focal deficit. Cranial nerves II through XII are grossly intact. No headache. No double vision. SKIN: Not dry. Intact. Turgor - normal. LYMPHATIC: No palpable lymph nodes/no lymphedema. MUSCULOSKELETAL: Normal joints with no swelling. Muscle tone is normal. LABS: Hgb 10.9, hct 33, WBC 7,900 normal differential, creatinine 0.8, BUN 13, potassium 3.8 ASSESSMENT: 1. Acute sigmoid diverticulitis 2. Dehydration, resolved 3. Abdominal pain, resolved PLAN: 1. Discharge the patient home on Flagyl and Cipro 2. Instruction to come back in 5-7 days. 3. Colonoscopy to be scheduled by the patient by calling Dr. Clifton's office as soon as possible CONDITION: Stable. TIME SPENT: More than 30 minutes. Plan and coordination of the patient's care discussed in the presence of nurse. FEMI
--- NOTE | 2021-04-21 11:30 | DS ---
DATE OF SERVICE: 04/19/2021 FINAL DIAGNOSIS: 1. Acute diverticulitis of sigmoid colon 2. Hypertension 3. Obesity 4. Diverticulosis with diverticulitis 5. Restless leg syndrome 6. Generalized osteoarthritis 7. Dyslipidemia 8. Depression, under control with Celexa DISCHARGE INSTRUCTIONS: Discharge home. Continue all the medications. She was instructed to come back in 5-7 days. MEDICATIONS AT DISCHARGE: Lasix Potassium Aspirin Benicar Requip Amitriptyline Atorvastatin Citalopram Bystolic NEW PRESCRIPTIONS: Flagyl 250mg TID for 5 days Cipro 250mg BID for 5 days. DIET INSTRUCTIONS: Diverticulosis diet discussed Avoid milk products for next couple days. ACTIVITY: As tolerated HOSPITAL COURSE: 71 year old white female was seen in the office and hospitalized with acute diverticulitis. The patient was treated with IV Flagyl and Cipro. The patient's condition has improved in 3-4 days. The patient is up and about no abdominal pain. Explained about the diet. She is being followup by Dr. Clifton. She was seen by Dr. Clifton. She is supposed to call and scheduled her colonoscopy which she has postpone it because the was [facility] sick and now he is out. She is going to call Etienne's office and schedule colonoscopy after her discharge from this hospital. Condition at the time of discharge is stable. She has normal bowel movement. Explain about the diet and advised to avoid milk products for the next couple days. Diverticulosis diet discussed with the patient. Cardiovascular status was stable. On discharge the patient's hgb 10.9, hct 33, WBC 7,900 normal differential, creatinine 0.8, BUN 13. The patient has chronic anemia. The patient was COVID negative. The patient was discharged on Flagyl 250mg TID for 5 days and Cipro 250mg BID for 5 days. She was instructed to come back in 5-7 days. TIME SPENT: More than 60 minutes. MTDD
--- NOTE | 2021-04-21 11:32 | PN ---
04/14/2021: Level 5 04/15/2021: Intermediate 04/16/2021: Intermediate 04/17/2021: Intermediate 04/18/2021: Intermediate 04/19/2021: D as in discharge MTDD
== END 2021-04-19 12:35 | disposition home or self-care (01) | DRG 391 ==
LOC: MEDSURG A 17:21
PROVIDERS: ADMIT Internal Medicine; ATTEND Internal Medicine

== ENCOUNTER 2021-07-27 11:58 | Inpatient (IN) ==
[2021-07-27] MEDS ORDERED: NITROSTAT SL PRN (12:20)
[2021-07-27] MEDS ORDERED: ATROPINE SULFATE PFS IVP PRN (12:20)
[2021-07-27] MEDS ORDERED: TYLENOL PO PRN (12:20)
[2021-07-27] MEDS ORDERED: ZOFRAN 4 MG/2 ML IVP PRN (12:25)
[2021-07-27 12:36] LABS: BASOPHILS % (AUTO) 0.2 % (0.0-3.0); EOSINOPHILS # (AUTO) 0.2 K/ul (0.0-0.7); EOSINOPHILS % (AUTO) 1.5 % (0.0-7.0); HEMATOCRIT 39.3 % (37.0-47.0); HEMOGLOBIN 13.1 g/dl (12.0-16.0); IMMATURE GRANULOCYTE # (AUTO) 0.4 (0.0-1.0); IMMATURE GRANULOCYTE % (AUTO) 2.8 % (0.0-5.0); LYMPHOCYTES # (AUTO) 2.4 K/uL (0.60-3.4); LYMPHOCYTES % (AUTO) 17.6 (10.0-50.0); MEAN CORPUSCULAR HEMOGLOBIN 28.2 pg (27.0-31.0); MEAN CORPUSCULAR HGB CONC 33.3 (31.8-35.4); MEAN CORPUSCULAR VOLUME 84.7 fl (81.0-99.0); MONOCYTES # (AUTO) 1.1 K/uL (0.4-2.0); MONOCYTES % (AUTO) 7.8 (0-10); NEUTROPHILS # (AUTO) 9.6 K/ul (2.0-6.9); NEUTROPHILS % (AUTO) 70.1 % (42.2-75.2); PLATELET COUNT 283 10^3/uL (140-440); RDW COEFFICIENT OF VARIATION 15.3 % (11.6-14.8); RED BLOOD COUNT 4.64 10^6/ul (4.20-5.40); WHITE BLOOD COUNT 13.68 K/ul (4.6-10.2)
[2021-07-27 12:43] LABS: BEecf 4.7 (-2.0-3.0); COHb 2.1 (0.5-1.5); HCO3 26.1 (21-28); MetHb 0.7 (0-1.5); TCO2 26.9 (19-24); tHb 13.2 g/dl (11.7-17.4)
[2021-07-27 12:45] LABS: ABG PH 7.61 (7.35-7.45)
[2021-07-27 12:50] LABS: ALANINE AMINOTRANSFERASE 47.7 U/L (0-35); ALBUMIN 4.09 g/dL (3.5-5.0); ALKALINE PHOSPHATASE 103.8 U/L (53-141); ASPARTATE AMINO TRANSFERASE 26.4 U/L (14-36); BILIRUBIN,TOTAL 0.79 mg/dL (0.2-1.3); BLOOD UREA NITROGEN 17.8 mg/dL (7-17); CALCIUM 9.46 mg/dL (8.4-10.2); CARBON DIOXIDE 27.4 mmol/L (22-30.0); CHLORIDE 105.3 mmol/L (98-107); CREATININE 0.69 mg/dL (0.60-1.30); GLUCOSE 157.3 mg/dL (74-106); POTASSIUM 3.6 mmol/L (3.5-5.1); TOTAL PROTEIN 6.65 g/dL (6.3-8.2)
[2021-07-27 12:51] LABS: CREATINE KINASE 20.5 U/L (30-135)
[2021-07-27] MEDS: DECADRON IM SCH (12:53)
[2021-07-27] MEDS: SODIUM CHLORIDE 1,000 ML IV SCH ×2 (12:53→13:37)
[2021-07-27 13:03] LABS: TROPONIN I < 0.012 ng/ml (0.0000-0.120)
[2021-07-27 13:23] VITALS: BMI 32.8
[2021-07-27] MEDS: ROCEPHIN 1 GM/50 ML D5W 1 GM/50 ML BAG IV SCH (13:37)
[2021-07-27] MEDS: DOXY-100 100 MG in SODIUM CHLORIDE 100ML 100 ML IV SCH ×2 (14:47→20:43)
[2021-07-27 14:58] LABS: BILIRUBIN,URINE Negative (NEGATIVE); CLARITY,URINE Slightly (CLEAR); COLOR,URINE Yellow (YELLOW); GLUCOSE, URINE (UA) Negative (NEGATIVE); KETONES,URINE Negative (NEGATIVE); LEUKOCYTE ESTERASE ,URINE Trace (NEGATIVE); NITRITE,URINE Negative (NEGATIVE); PROTEIN,URINE Negative (NEGATIVE); URINE, BLOOD Trace-lysed (NEGATIVE); UROBILINOGEN,URINE 0.2 (0.2)
[2021-07-27 15:03] LABS: MUCUS,URINE 2+ (NOT PRESENT); SQUAMOUS EPITHELIAL CELL,UR 20-30 (0-5); URINE WBC, MICROSCOPIC 0-2 (0-2)
--- NOTE | 2021-07-27 15:16 | US ---
EXAM: Bilateral lower extremity venous Doppler. HISTORY: Left ankle swelling TECHNIQUE: Real time with lay-scale, color and spectral Doppler ultrasound performed on the bilater al common femoral, greater saphenous, profunda femoris, superficial femoral, popliteal, peroneal, ant erior tibial, and posterior tibial veins. COMPARISON: None FINDINGS: The veins are free of intraluminal filling defects. The veins are compressible and show i ncreased flow with augmentation. Normal variability with respiration is noted. IMPRESSION: Negative exam for bilateral lower extremity DVT.
--- NOTE | 2021-07-27 15:18 | DI ---
EXAM: CHEST FRONTAL VIEW HISTORY: Right upper lobe pneumonia COMPARISON: 04/14/2021 FINDINGS: Prominent heart size is again noted. Currently there is no convincing evidence of consoli dated pneumonia or acute infiltrate. There is no vascular congestion or pleural fluid. Previous lef t shoulder replacement. IMPRESSION: Currently there is no convincing evidence of consolidated pneumonia or acute infiltrate.
[2021-07-27] MEDS: PEPCID PO SCH (17:09)
[2021-07-27] MEDS: XARELTO PO SCH (20:43)
[2021-07-27] MEDS: REQUIP PO SCH (20:43)
[2021-07-27 20:47] LABS: CREATINE KINASE < 20.0 U/L (30-135)
[2021-07-27 20:57] LABS: TROPONIN I < 0.012 ng/ml (0.0000-0.120)
[2021-07-27] MEDS ORDERED: REQUIP PO SCH (21:00)
[2021-07-28] MEDS: SODIUM CHLORIDE 1,000 ML IV SCH ×2 (04:19→20:23)
[2021-07-28 05:34] LABS: BASOPHILS % (AUTO) 0.1 % (0.0-3.0); EOSINOPHILS % (AUTO) 0.1 % (0.0-7.0); HEMATOCRIT 36.2 % (37.0-47.0); HEMOGLOBIN 12.1 g/dl (12.0-16.0); IMMATURE GRANULOCYTE # (AUTO) 0.2 (0.0-1.0); IMMATURE GRANULOCYTE % (AUTO) 1.5 % (0.0-5.0); LYMPHOCYTES # (AUTO) 1.4 K/uL (0.60-3.4); LYMPHOCYTES % (AUTO) 10.5 (10.0-50.0); MEAN CORPUSCULAR HEMOGLOBIN 28.3 pg (27.0-31.0); MEAN CORPUSCULAR HGB CONC 33.4 (31.8-35.4); MEAN CORPUSCULAR VOLUME 84.8 fl (81.0-99.0); MONOCYTES # (AUTO) 0.6 K/uL (0.4-2.0); MONOCYTES % (AUTO) 4.3 (0-10); NEUTROPHILS # (AUTO) 11.3 K/ul (2.0-6.9); NEUTROPHILS % (AUTO) 83.5 % (42.2-75.2); PLATELET COUNT 270 10^3/uL (140-440); RDW COEFFICIENT OF VARIATION 15.1 % (11.6-14.8); RED BLOOD COUNT 4.27 10^6/ul (4.20-5.40); WHITE BLOOD COUNT 13.48 K/ul (4.6-10.2)
[2021-07-28] MEDS: PEPCID PO SCH ×2 (05:38→17:29)
[2021-07-28] MEDS: LASIX TAB PO SCH (05:38)
[2021-07-28 05:46] LABS: ALANINE AMINOTRANSFERASE 41.6 U/L (0-35); ALBUMIN 3.84 g/dL (3.5-5.0); ALKALINE PHOSPHATASE 93.3 U/L (53-141); ASPARTATE AMINO TRANSFERASE 22.8 U/L (14-36); BILIRUBIN,TOTAL 0.59 mg/dL (0.2-1.3); CALCIUM 9.2 mg/dL (8.4-10.2); CARBON DIOXIDE 28.7 mmol/L (22-30.0); CREATININE 0.6 mg/dL (0.60-1.30); GLUCOSE 155.9 mg/dL (74-106); POTASSIUM 4.3 mmol/L (3.5-5.1); SODIUM 138.8 mmol/L (134.5-145); TOTAL PROTEIN 6.34 g/dL (6.3-8.2)
--- NOTE | 2021-07-28 08:57 | PCM.PROG ---
Attending Provider: ATTENDING PROVIDER: Dr. DARIEN BRAR This patient is seen with Tiffanie Pedroza, Nurse Practitioner. DATE OF SERVICE: 07/28/21 SUBJECTIVE: This 71 year old /WHITE F was hospitalized 07/27/21. The patient reports she is feeling much better this morning. Felling like O2 has helped. She looks better. Heart rate has been stable. Venous scan is negative. REVIEW OF SYSTEMS: CONSTITUTIONAL: No night sweats. Fatigue. No fever or chills. HEENT: Eyes: No visual changes. No eye pain. No eye discharge. ENT: No runny nose. No epistaxis. No sinus pain. No odynophagia. No congestion. RESPIRATORY: No cough, no congestion. No hemoptysis. Shortness of breath. CARDIOVASCULAR: No angina symptoms. No CHF symptoms. No atypical chest pain for CAD. No palpitations. No orthopnea.. GASTROINTESTINAL: No abdominal pain. No nausea or vomiting. No diarrhea or constipation. No hematemesis. No hematochezia. GENITOURINARY: No urgency. No frequency. No dysuria. No hematuria. No obstructive symptoms. No discharge. No pain. No significant abnormal bleeding. MUSCULOSKELETAL: No musculoskeletal pain; no joint swelling. NEUROLOGICAL: Awake, alert, oriented to time, place and person. No headache. No neck pain. No syncope. No seizures. No dizziness. PSYCHIATRIC: Not anxious. No depression. No suicidal thoughts. No homicidal thoughts. SKIN: No rash. No lesions. No wounds. ENDOCRINE: No unexplained weight loss. No weight gain. HEMATOLOGIC/LYMPHATIC: No anemia. No purpura. No petechiae. No prolonged or excessive bleeding. No palpable lymph nodes. PHYSICAL EXAMINATION: GENERAL: The patient is awake, alert and oriented, lying in bed in no distress. VITAL SIGNS: Temperature 97 F, Pulse 82, Respiratory Rate 18, BP 144/84, Pulse Ox 96% HEENT: Head normocephalic, atraumatic. Eyes: Extraocular muscles are intact. Pupils are equal, round and reactive to light and accommodation. Ears: No lesions. Nose appeared normal. Throat: No exudate or erythema. NECK: Supple. No JVD, no carotid bruit. No lymphadenopathy or thyromegaly. LUNGS: Clear to auscultation. Percussion note normal. Chest symmetrical. HEART: S1, S2, no S3. No murmurs. No cyanosis or clubbing. No ascites. Pulses: Dorsalis pedis and posterior tibial pulses +1 to +2 both sides. ABDOMEN: Soft. Non-tender. Bowel sounds active. No CVA tenderness. No mass fe lt. EXTREMITIES: No edema. Full range of motion of all extremities, equal. NEUROLOGIC: No focal deficit. Cranial nerves II through XII are grossly intact. No headache. No double vision. SKIN: Not dry. Intact. Turgor-normal. LYMPHATIC: No palpable lymph nodes/no lymphedema. MUSCULOSKELETAL: Normal joints with no swelling. Muscle tone is normal. LAB REVIEW: 07/28/21 05:18 07/28/21 05:18 07/28/21 05:18: Sodium 138.8, Potassium 4.30, Chloride 106.0, Carbon Dioxide 28.7, Anion Gap 8.40, BUN 18.0 H, Creatinine 0.60, Estimated GFR (MDRD) 99.00, BUN/Creatinine Ratio 30.00, Glucose 155.9 H, Calcium 9.20, Total Bilirubin 0.59, AST 22.8, ALT 41.6 H, Alkaline Phosphatase 93.3, Total Protein 6.34, Albumin 3. 84, Globulin 2.50, Albumin/Globulin Ratio 1.53 07/28/21 05:18: WBC 13.48 H, RBC 4.27, Hgb 12.1, Hct 36.2 L, MCV 84.8, MCH 28.3, MCHC 33.4, RDW Coeff of Kendell 15.1 H, Plt Count 270, Immature Gran % (Auto) 1.5, Neut % (Auto) 83.5 H, Lymph % (Auto) 10.5, Dukes % (Auto) 4.3, Eos % (Auto) 0.1, Baso % (Auto) 0.1, Neut # (Auto) 11.3 H, Lymph # (Auto) 1.4, Dukes # (Auto) 0.6, Eos # (Auto) 0.0, Baso # (Auto) 0.0, Immature Gran # (Auto) 0.2 07/27/21 20:25: Total Creatine Kinase < 20.0 L, Troponin I < 0.012 07/27/21 14:51: Urine Color Yellow, Urine Clarity Slightly, Urine pH 6.0, Ur Specific Madison 1.025, Urine Protein Negative, Urine Glucose (UA) Negative, Urine Ketones Negative, Urine Blood Trace-lysed, Urine Nitrite Negative, Urine Bilirubin Negative, Urine Urobilinogen 0.2, Ur Leukocyte Esterase Trace H, Urine Microscopic RBC 2-5, Urine Microscopic WBC 0-2, Ur Squamous Epith Cells 20-30, Urine Mucus 2+ 07/27/21 12:30: Total Creatine Kinase 20.5 L, Troponin I < 0.012 07/27/21 12:30: Sodium 138.0, Potassium 3.60, Chloride 105.3, Carbon Dioxide 27 .4, Anion Gap 8.90, BUN 17.8 H, Creatinine 0.69, Estimated GFR (MDRD) 84.00, BUN/Creatinine Ratio 25.79, Glucose 157.3 H, Calcium 9.46, Total Bilirubin 0.79, AST 26.4, ALT 47.7 H, Alkaline Phosphatase 103.8, Total Protein 6.65, Albumin 4.09, Globulin 2.56, Albumin/Globulin Ratio 1.59 07/27/21 12:30: WBC 13.68 H, RBC 4.64, Hgb 13.1, Hct 39.3, MCV 84.7, MCH 28.2, MCHC 33.3, RDW Coeff of Kendell 15.3 H, Plt Count 283, Immature Gran % (Auto) 2.8, Neut % (Auto) 70.1, Lymph % (Auto) 17.6, Dukes % (Auto) 7.8, Eos % (Auto) 1.5, Baso % (Auto) 0.2, Neut # (Auto) 9.6 H, Lymph # (Auto) 2.4, Dukes # (Auto) 1.1, Eos # (Auto) 0.2, Baso # (Auto) 0.0, Immature Gran # (Auto) 0.4 07/27/21 12:28: Puncture Site L rad, Base Excess 4.7 H, O2 Saturation 99.0 H, ABG pH 7.61 H*, ABG pCO2 26.0 L, ABG pO2 111.0 H, ABG HCO3 26.1, ABG Total CO2 26.9 H, Bull Test Y, Hemoglobin 0.7, Oxyhemoglobin 96.0, Carboxyhemoglobin 2.1 H, Total Hemoglobin 13.2, FiO2 % 21.0 ASSESSMENT: Please see below. 1. PE right upper lobe 2. Dehydration, improving 3. Recent COVID 19 4. Improving COVID pneumonia PLAN: 1. Symbicort 160 two puffs twice a day 2. Decrease IV fluids to 75cc an hour Plan and coordination of the patient's care discussed in the presence of Groover Runner and nurse. SCRIBED BY: SYLVIA THAO Rod Puller scribed while in presence of service performed by Dr. Brar/Tiffanie Pedroza APRN on 07/28/21 ([id number])
[2021-07-28] MEDS ORDERED: OLMESARTAN 40 MG PO SCH (09:00)
[2021-07-28] MEDS: VITAMIN D PO SCH (09:51)
[2021-07-28] MEDS: BYSTOLIC PO SCH (09:51)
[2021-07-28] MEDS: ASPIRIN EC PO SCH (09:51)
[2021-07-28] MEDS: SYMBICORT 160-4.5 MCG INHALER IH SCH ×2 (09:51→20:24)
[2021-07-28] MEDS: DOXY-100 100 MG in SODIUM CHLORIDE 100ML 100 ML IV SCH ×2 (09:51→20:22)
[2021-07-28] MEDS: BENICAR PO SCH (09:52)
[2021-07-28] MEDS: MICRO-K CAP PO SCH (09:52)
[2021-07-28] MEDS: XARELTO PO SCH ×2 (09:53→20:24)
[2021-07-28] MEDS: NON-FORMULARY MEDICATION (Linaclotide [Linzess] 72 mcg Capsule) PO SCH (09:53)
[2021-07-28] MEDS: DECADRON IM SCH (09:53)
[2021-07-28] MEDS: GLUCOPHAGE PO SCH (09:53)
[2021-07-28] MEDS: ROCEPHIN 1 GM/50 ML D5W 1 GM/50 ML BAG IV SCH (11:42)
--- NOTE | 2021-07-28 14:40 | HP ---
DATE OF SERVICE: 07/27/21 REASON FOR HOSPITALIZATION/HISTORY OF PRESENT ILLNESS: ER 07/17 positive COVID with shortness of breath and found PE right upper lobe. Venous scan is negative. Patchy infiltrate both lungs started on Xarelto. Finished steroids and Z-pack. Signs and symptoms of COVID started 07/13. So weak and tired, very out of breath walking to bathroom. PAST MEDICAL HISTORY: Insomnia Vertigo CAD Hypertension Dyslipidemia TIA Osteoarthritis Headache Mini strokes PAST SURGICAL HISTORY: Left hip replacement Left knee replacement Right rotator cuff Colonoscopy Gallbladder Appendix Back surgery 1997 Hysterectomy REVIEW OF SYSTEMS: CONSTITUTIONAL: No fever, Fatigue. HEENT: No sinus drainage, no sore throat. RESPIRATORY: Cough; slight , no congestion. CARDIOVASCULAR: Atypical chest pain for coronary artery disease, pleuritic. No angina, CHF symptoms, palpitations. Shortness of breath with exertion GASTROINTESTINAL: No melena or abdominal pain. No GERD. Decreased urinary output. GENITOURINARY: No hematuria, no prostatism, no polyuria. APPLIANCE REPAIRER: No blackout, Dizziness, no headache, no double vision. MUSCULOSKELETAL: No osteoarthritis pain, no joint swelling. ENDOCRINE: No weight loss, no weight gain. SKIN: Not dry, no rash. PSYCHIATRIC: Not anxious, no depression, no suicidal thoughts, no homicidal thoughts. SOCIAL HISTORY: Marital Status: . Alcohol Usage: No. Tobacco Usage: No. FAMILY HISTORY: Father age 64 [place] Mother age 53 [place] colon Brother 1 Sister 3 MEDICATIONS: Aspirin 81mg PO daily Lasix 40mg Po daily K-Tab 10meq daily Benicar 40mg PO daily Bystolic 10mg daily Pravachol 40mg daily Xanax 0.25mg PRN Requip 5mg HS Metolazone 2.5mg two times weekly Celexa 30mg daily Elavil 25mg Po daily Fioricet 1-2 hours Protonix 40mg QAM Metformin 500mg PO daily Zofran 4mg TID PRN Linzess 75mcg PRN Xarelto start pack two times daily took this AM ALLERGIES: Codeine Latex Tramadol PHYSICAL EXAMINATION: V/S: Pulse 100, blood pressure 126/72, temperature 97, saturation 96%. BMI 33.1, height 5'4 and weight 192.8. GENERAL APPEARANCE: Oriented times three. HEENT: Pale, dry mucous membrane. NECK: No JVP, no bruits. RESPIRATORY: Lungs are clear. CARDIOVASCULAR: S1, S2, no S3, Tachy. no murmur. No cyanosis, clubbing. No ascites. GI/ABDOMEN: No tenderness. Bowel sounds are active. EXTREMITIES: edema, pulses +1, equal. APPLIANCE REPAIRER: Deep tendon reflexes, sensory, motor and gait all normal. RECTAL: Dr. Clifton colonoscopy 03-22/PELVIC: Hysterectomy. Advised yearly. Mammogram 06/22 MM. ASSESSMENT: 1. Right upper lobe PE 2. Dehydration 3. COVID 19, day 14 4. COVID pneumonia bilateral 5. Recurrent diverticulitis 6. Dyslipidemia 7. Hypertension 8. TIA 9. Paraspinal muscle spasm 10.Right THR 02/21 [facility] 11.Right shoulder osteoarthritis, Vini 12.Left shoulder surgery 01/20 13.Bilateral knee osteoarthritis 14.Esophageal spasm 15.Left lower cheek nodule 16.Ventral hernia Right upper quadrant 17.Bilateral total knee replacement 04/20 18.Insomnia 19.Vertigo 20.SUSAN 21.Cath 01/19 Ok 22.Cholecystectomy 23.Headache PLAN: 1. Routine telemetry 2. Chest x-ray 3. ABG on room air 4. O2 1-2 liters normal saline 5. Continue Xarelto 15mg PO BID 6. Normal saline IV at 100cc an hour 7. Rocephin 1 gram IV daily 8. Doxycycline 100mg IV Q 12 hours 9. Vitamin D 10.Pepcid per COVID protocol 11.Decadron 4mg IM daily 12.Zofran 4mg IV Q 8 hours PRN 13.Bilateral venous scan lower extremity 14.Continue Home medications TIME SPENT: More than 70 minutes. MTDD
--- NOTE | 2021-07-28 14:43 | PN ---
DATE OF SERVICE: 07/28/21 SUBJECTIVE: The patient was seen and examined with the Nurse Practitioner. The patient's overall status has improved. Hydration status looks better. Color looks better. She is feeling better. No chest pain. No PND. No orthopnea. No palpitation. We will do echocardiogram to evaluate LV function. She has been complaining of shortness of breath with exertion but no associate symptoms of CHF or coronary insufficiency. TIME SPENT: More than 30 minutes. Plan and coordination of the patient's care discussed in the presence of nurse. FEMI
[2021-07-28] MEDS: REQUIP PO SCH (20:22)
[2021-07-29] MEDS: SODIUM CHLORIDE 1,000 ML IV SCH ×3 (00:38→14:36)
[2021-07-29 05:37] LABS: BASOPHILS % (AUTO) 0.1 % (0.0-3.0); EOSINOPHILS % (AUTO) 0.1 % (0.0-7.0); HEMATOCRIT 34.1 % (37.0-47.0); HEMOGLOBIN 11.3 g/dl (12.0-16.0); IMMATURE GRANULOCYTE # (AUTO) 0.2 (0.0-1.0); IMMATURE GRANULOCYTE % (AUTO) 1.4 % (0.0-5.0); LYMPHOCYTES # (AUTO) 1.9 K/uL (0.60-3.4); LYMPHOCYTES % (AUTO) 13.8 (10.0-50.0); MEAN CORPUSCULAR HEMOGLOBIN 28.3 pg (27.0-31.0); MEAN CORPUSCULAR HGB CONC 33.1 (31.8-35.4); MEAN CORPUSCULAR VOLUME 85.5 fl (81.0-99.0); MONOCYTES # (AUTO) 0.9 K/uL (0.4-2.0); MONOCYTES % (AUTO) 6.3 (0-10); NEUTROPHILS # (AUTO) 10.7 K/ul (2.0-6.9); NEUTROPHILS % (AUTO) 78.3 % (42.2-75.2); PLATELET COUNT 250 10^3/uL (140-440); RDW COEFFICIENT OF VARIATION 15.2 % (11.6-14.8); RED BLOOD COUNT 3.99 10^6/ul (4.20-5.40); WHITE BLOOD COUNT 13.63 K/ul (4.6-10.2)
[2021-07-29] MEDS: PEPCID PO SCH ×2 (05:44→16:36)
[2021-07-29] MEDS: LASIX TAB PO SCH (05:44)
[2021-07-29 05:54] LABS: ALANINE AMINOTRANSFERASE 33.8 U/L (0-35); ALBUMIN 3.59 g/dL (3.5-5.0); ALKALINE PHOSPHATASE 126.5 U/L (53-141); ASPARTATE AMINO TRANSFERASE 19.6 U/L (14-36); BILIRUBIN,TOTAL 0.37 mg/dL (0.2-1.3); BLOOD UREA NITROGEN 18.6 mg/dL (7-17); CALCIUM 9.25 mg/dL (8.4-10.2); CARBON DIOXIDE 28.8 mmol/L (22-30.0); CHLORIDE 107.8 mmol/L (98-107); CREATININE 0.6 mg/dL (0.60-1.30); GLUCOSE 156.6 mg/dL (74-106); POTASSIUM 4.12 mmol/L (3.5-5.1); SODIUM 139.1 mmol/L (134.5-145); TOTAL PROTEIN 6.03 g/dL (6.3-8.2)
[2021-07-29] MEDS: ROCEPHIN 1 GM/50 ML D5W 1 GM/50 ML BAG IV SCH (08:14)
[2021-07-29] MEDS: GLUCOPHAGE PO SCH (08:48)
[2021-07-29] MEDS: ASPIRIN EC PO SCH (08:48)
[2021-07-29] MEDS: BENICAR PO SCH (08:48)
[2021-07-29] MEDS: BYSTOLIC PO SCH (08:49)
[2021-07-29] MEDS: MICRO-K CAP PO SCH (08:49)
[2021-07-29] MEDS: VITAMIN D PO SCH (08:49)
[2021-07-29] MEDS: DECADRON IM SCH (08:50)
[2021-07-29] MEDS: XARELTO PO SCH ×2 (08:53→20:52)
[2021-07-29] MEDS: NON-FORMULARY MEDICATION (Linaclotide [Linzess] 72 mcg Capsule) PO SCH (08:58)
[2021-07-29] MEDS: SYMBICORT 160-4.5 MCG INHALER IH SCH ×2 (09:12→21:11)
[2021-07-29] MEDS: DOXY-100 100 MG in SODIUM CHLORIDE 100ML 100 ML IV SCH ×2 (09:12→20:52)
[2021-07-29] MEDS: REQUIP PO SCH (20:51)
[2021-07-29] MEDS ORDERED: NORVASC PO SCH (21:00)
[2021-07-30 05:23] VITALS: BP 146/80; TEMP 97.6
[2021-07-30] MEDS: LASIX TAB PO SCH (05:39)
[2021-07-30] MEDS: PEPCID PO SCH (05:39)
[2021-07-30] MEDS: SODIUM CHLORIDE 1,000 ML IV SCH (05:40)
[2021-07-30 05:44] LABS: BASOPHILS % (AUTO) 0.1 % (0.0-3.0); EOSINOPHILS % (AUTO) 0.1 % (0.0-7.0); HEMATOCRIT 38.4 % (37.0-47.0); HEMOGLOBIN 12.6 g/dl (12.0-16.0); IMMATURE GRANULOCYTE # (AUTO) 0.1 (0.0-1.0); IMMATURE GRANULOCYTE % (AUTO) 0.9 % (0.0-5.0); LYMPHOCYTES # (AUTO) 2.2 K/uL (0.60-3.4); MEAN CORPUSCULAR HEMOGLOBIN 28.1 pg (27.0-31.0); MEAN CORPUSCULAR HGB CONC 32.8 (31.8-35.4); MEAN CORPUSCULAR VOLUME 85.7 fl (81.0-99.0); MONOCYTES # (AUTO) 0.8 K/uL (0.4-2.0); NEUTROPHILS # (AUTO) 10.8 K/ul (2.0-6.9); NEUTROPHILS % (AUTO) 76.9 % (42.2-75.2); PLATELET COUNT 276 10^3/uL (140-440); RDW COEFFICIENT OF VARIATION 15.4 % (11.6-14.8); RED BLOOD COUNT 4.48 10^6/ul (4.20-5.40); WHITE BLOOD COUNT 13.99 K/ul (4.6-10.2)
[2021-07-30 05:56] LABS: ALANINE AMINOTRANSFERASE 35.8 U/L (0-35); ALKALINE PHOSPHATASE 104.4 U/L (53-141); ASPARTATE AMINO TRANSFERASE 19.9 U/L (14-36); BILIRUBIN,TOTAL 0.54 mg/dL (0.2-1.3); BLOOD UREA NITROGEN 20.2 mg/dL (7-17); CALCIUM 9.47 mg/dL (8.4-10.2); CHLORIDE 104.6 mmol/L (98-107); CREATININE 0.63 mg/dL (0.60-1.30); GLUCOSE 138.9 mg/dL (74-106); POTASSIUM 3.6 mmol/L (3.5-5.1); SODIUM 139.7 mmol/L (134.5-145); TOTAL PROTEIN 6.55 g/dL (6.3-8.2)
[2021-07-30] MEDS ORDERED: NORVASC PO SCH (09:00)
[2021-07-30] MEDS ORDERED: BYSTOLIC PO SCH (09:00)
[2021-07-30] MEDS: ASPIRIN EC PO SCH (09:09)
--- NOTE | 2021-07-30 09:20 | PCM.PROG ---
Attending Provider: ATTENDING PROVIDER: Dr. DARIEN BRAR This patient is seen with Tiffanie Pedroza, Nurse Practitioner. DATE OF SERVICE: 07/30/21 SUBJECTIVE: This 71 year old /WHITE F was hospitalized 07/27/21. Shortness of breath and weakness have improved. Still expect her to have some fatigue. D iscussed risk associated with PE and blood thinners. Discharge home today. Labs are stable. REVIEW OF SYSTEMS: CONSTITUTIONAL: No night sweats. No fatigue, malaise, lethargy. No fever or chills. Weakness. HEENT: Eyes: No visual changes. No eye pain. No eye discharge. ENT: No runny nose. No epistaxis. No sinus pain. No odynophagia. No congestion. RESPIRATORY: No cough, no congestion. No hemoptysis. Shortness of breath. CARDIOVASCULAR: No angina symptoms. No CHF symptoms. No atypical chest pain for CAD. No palpitations. No orthopnea.. GASTROINTESTINAL: No abdominal pain. No nausea or vomiting. No diarrhea or constipation. No hematemesis. No hematochezia. GENITOURINARY: No urgency. No frequency. No dysuria. No hematuria. No obstructive symptoms. No discharge. No pain. No significant abnormal bleeding. MUSCULOSKELETAL: No musculoskeletal pain; no joint swelling. NEUROLOGICAL: Awake, alert, oriented to time, place and person. No headache. No neck pain. No syncope. No seizures. No dizziness. PSYCHIATRIC: Not anxious. No depression. No suicidal thoughts. No homicidal thoughts. SKIN: No rash. No lesions. No wounds. ENDOCRINE: No unexplained weight loss. No weight gain. HEMATOLOGIC/LYMPHATIC: No anemia. No purpura. No petechiae. No prolonged or excessive bleeding. No palpable lymph nodes. PHYSICAL EXAMINATION: GENERAL: The patient is awake, alert and oriented, sitting in bed in no distress. VITAL SIGNS: Temperature 97.6 F, Pulse 60, Respiratory Rate 18, BP 146/80, Pulse Ox 96% HEENT: Head normocephalic, atraumatic. Eyes: Extraocular muscles are intact. Pupils are equal, round and reactive to light and accommodation. Ears: No lesions. Nose appeared normal. Throat: No exudate or erythema. NECK: Supple. No JVD, no carotid bruit. No lymphadenopathy or thyromegaly. LUNGS: Diminished breath sounds. Clear to auscultation. Percussion note normal. Chest symmetrical. HEART: S1, S2, no S3. No murmurs. No cyanosis or clubbing. No ascites. Pulses: Dorsalis pedis and posterior tibial pulses +1 to +2 both sides. ABDOMEN: Soft. Non-tender. Bowel sounds active. No CVA tenderness. No mass felt. EXTREMITIES: No edema. Full range of motion of all extremities, equal. NEUROLOGIC: No focal deficit. Cranial nerves II through XII are grossly intact. No headache. No double vision. SKIN: Not dry. Intact. Turgor-normal. LYMPHATIC: No palpable lymph nodes/no lymphedema. MUSCULOSKELETAL: Normal joints with no swelling. Muscle tone is normal. LAB REVIEW: 07/30/21 05:37 07/30/21 05:37 07/30/21 05:37: Sodium 139.7, Potassium 3.60, Chloride 104.6, Carbon Dioxide 31.0 H, Anion Gap 7.70, BUN 20.2 H, Creatinine 0.63, Estimated GFR (MDRD) 93.00, BUN/Creatinine Ratio 32.06, Glucose 138.9 H, Calcium 9.47, Total Bilirubin 0.54, AST 19.9, ALT 35.8 H, Alkaline Phosphatase 104.4, Total Protein 6.55, Albumin 4.00, Globulin 2.55, Albumin/Globulin Ratio 1.56 07/30/21 05:37: WBC 13.99 H, RBC 4.48, Hgb 12.6, Hct 38.4, MCV 85.7, MCH 28.1, MCHC 32.8, RDW Coeff of Kend[place] 15.4 H, Plt Count 276, Immature Gran % (Auto) 0.9, Neut % (Auto) 76.9 H, Lymph % (Auto) 16.0, [place] % (Auto) 6.0, Eos % (Auto) 0.1, Baso % (Auto) 0.1, Neut # (Auto) 10.8 H, Lymph # (Auto) 2.2, Vil[place] # (Auto) 0.8, Eos # (Auto) 0.0, Baso # (Auto) 0.0, Immature Gran # (Auto) 0.1 ASSESSMENT: Please see below. 1. Right upper lobe pneumonia 2. Shortness of breath has improved 3. Recent COVID pneumonia 4. Dehydration, resolved 5. Hypertension PLAN: 1. Discharge home 2. Discontinue Aspirin 3. Discontinue Meloxicam 4. Discussed no NSAIDS 5. Prednisone 10mg BID for 5 days 6. Followup in office next week 7. Will continue Cymbifort two puffs BID 8. Bystolic changed 5mg daily 9. Norvasc add to 5mg at night 10. Discussed need to stay on Xarelto for next 6 months Plan and coordination of the patient's care discussed in the presence of Edi Architect and nurse. SCRIBED BY: Nila SHAIKH scribed while in presence of service performed by Dr. Brar/Tiffanie Pedroza APRN on 07/30/21 ([id number])
[2021-07-30] MEDS: DOXY-100 100 MG in SODIUM CHLORIDE 100ML 100 ML IV SCH (09:43)
[2021-07-30] MEDS: VITAMIN D PO SCH (09:43)
[2021-07-30] MEDS: MICRO-K CAP PO SCH (09:44)
[2021-07-30] MEDS: GLUCOPHAGE PO SCH (09:44)
[2021-07-30] MEDS: BENICAR PO SCH (09:44)
[2021-07-30] MEDS: DECADRON IM SCH (09:44)
[2021-07-30] MEDS: XARELTO PO SCH (09:45)
[2021-07-30] MEDS: NON-FORMULARY MEDICATION (Linaclotide [Linzess] 72 mcg Capsule) PO SCH (09:59)
[2021-07-30] MEDS: SYMBICORT 160-4.5 MCG INHALER IH SCH (10:01)
--- NOTE | 2021-07-30 10:15 | ECHO2D ---
Date of Exam: 07/28/2021 Ordering Physician: DR. DARIEN BRAR Room #: 109 Reason for Echo: S/P COVID PNEUMONIA, SOB, PE RIGHT UPPER LOBE M-Mode Normal Adult Results LV Dimensions Normal Adult Results AoV Opening excursions >1.6 >1.6 LVEDD-base- 3.5-5.8 5.1 Ao root dimensions 2.0-3.7 3.3 LVESD-base- 3.1-4.6 L. Atrium dimensions 1.9-3.8 4.5 Post. Wall thickness 0.8-1.1 1.2 IV septum (thickness) 0.7-1.2 1.2 Post. Wall excursion 0.72-1.3 NORMAL Septal motion NORMAL Systolic motion R. Ventricular cavity 1.5-2.0 NORMAL LVEF 60% 56% Paradoxical septal wall motion NORMAL 2-D : 2-D M Mode Echocardiogram was performed using apical four chamber and left parasternal long and short axis views. Mitral, tricuspid and aortic valves appear to be normal. Contractility of the left ventricle seems to be normal, so is the cavity size. ENLARGED LEFT ATRIAL CAVITY. Aortic root appears to be normal. There is no pericardial effusion. There is no thrombus noted in the left ventricle or left atrial cavity. M-MODE: MV: NORMAL AV: NORMAL TV: NORMAL PV: CHAMBER SIZE: ENLARGED LEFT ATRIAL CAVITY WALL MOTION: NORMAL PERICARDIUM: NORMAL INTERPRETATION: 1. LEFT VENTRICLE HYPERTROPHY WITH ENLARGED LEFT ATRIAL CAVITY 2. NORMAL LEFT VENTRICLE CONTRACTILITY 3. NORMAL VALVES MTDD
[2021-07-30] MEDS: ROCEPHIN 1 GM/50 ML D5W 1 GM/50 ML BAG IV SCH (11:17)
--- NOTE | 2021-08-04 11:39 | PN ---
DATE OF SERVICE: 07/27/21 SUBJECTIVE: The patient was seen and examined in the office. The patient came in with complaint of being short of breath and extremely fatigued. The patient has history of COVID pneumonitis with small pulmonary embolism diagnosed at [facility] emergency room. She was discharged home on Xarelto. The patient's condition is stable but she continued to be short of breath, tired and fatigued. The patient was tachycardic and somewhat pale and mild dehydrated. REVIEW OF SYSTEMS: CONSTITUTIONAL: No night sweats. No fatigue, malaise, lethargy. No fever or chills. HEENT: Eyes: No visual changes. No eye pain. No eye discharge. ENT: No runny nose. No epistaxis. No sinus pain. No sore throat. No odynophagia. No congestion. RESPIRATORY: No cough, no congestion. No hemoptysis. No shortness of breath. CARDIOVASCULAR: No angina symptoms. No CHF symptoms. No atypical chest pain for CAD. No palpitations. No PND. No orthopnea. GASTROINTESTINAL: No abdominal pain. No nausea or vomiting. No diarrhea or constipation. No hematemesis. No hematochezia. GENITOURINARY: No urgency. No frequency. No dysuria. No hematuria. No obstructive symptoms. No discharge. No pain. No significant abnormal bleeding. MUSCULOSKELETAL: No musculoskeletal pain; no joint swelling. NEUROLOGICAL: No headache. No neck pain. No syncope. No seizures. No dizziness. PSYCHIATRIC: Not anxious. No depression. No suicidal thoughts. No homicidal thoughts. SKIN: No rash. No lesions. No wounds. ENDOCRINE: No unexplained weight loss. No weight gain. HEMATOLOGIC/LYMPHATIC: No anemia. No purpura. No petechiae. No prolonged or excessive bleeding. No palpable lymph nodes. PHYSICAL EXAMINATION: VITALS: Afebrile with saturation more than 90%. HEENT: Head normocephalic, atraumatic. Eyes: Extraocular muscles are intact. Pupils are equal, round and reactive to light and accommodation. Ears: No lesions. Nose appeared normal. Throat: No exudate or erythema. NECK: Supple. No JVD, no carotid bruit. No lymphadenopathy or thyromegaly. LUNGS: Clear to auscultation with good breath sounds. Percussion note normal. Chest symmetrical. HEART: S1, S2, no S3. No murmurs. No cyanosis or clubbing. No ascites. Pulses: Dorsalis pedis and posterior tibial pulses +1 to +2 bilaterally. ABDOMEN: Soft. Nontender. Bowel sounds active. No CVA tenderness. No mass felt. EXTREMITIES: No pedal edema. Full range of motion of all extremities, equal. NEUROLOGIC: No focal deficit. Cranial nerves II through XII are grossly intact. No headache. No double vision. SKIN: Not dry. Intact. Turgor - normal. LYMPHATIC: No palpable lymph nodes/no lymphedema. MUSCULOSKELETAL: Normal joints with no swelling. Muscle tone is normal. LABS: Per the patient arterial blood gasses done in the hospital were practically normal with pO2 of more than 100 with hyperventilation with pH of more than 7.6. Labs tests were acceptable. PLAN: 1. IV fluids, steroids, oxygen supplements 2. Venous scan of the both lower extremities 3. CT scan of the chest 4. Discussed that the patient is ready for vaccination when she is up for it within next couple of weeks. 5. History of physical was done by Nurse Practitioner and plan was formulated. CONDITION: Stable. TIME SPENT: More than 30 minutes. Plan and coordination of the patient's care discussed in the presence of nurse. FEMI
--- NOTE | 2021-08-04 13:48 | PN ---
DATE OF SERVICE: 07/29/21 SUBJECTIVE: 71 year old white female hospitalized with shortness of breath and infiltrate in both lower lung addison with history of having COVID pneumonia. The patient's echocardiogram was practically normal with LVH and LA cavity and cardiomyopathy seen. The patient is feeling a lot better. The patient is off steroids. REVIEW OF SYSTEMS: CONSTITUTIONAL: No night sweats. No fatigue, malaise, lethargy. No fever or chills. HEENT: Eyes: No visual changes. No eye pain. No eye discharge. ENT: No runny nose. No epistaxis. No sinus pain. No sore throat. No odynophagia. No congestion. RESPIRATORY: No cough, no congestion. No hemoptysis. Shortness of breath on minimal exertion at times. Three step test was negative. CARDIOVASCULAR: No angina symptoms. No CHF symptoms. No atypical chest pain for CAD. No palpitations. No PND. No orthopnea. GASTROINTESTINAL: No abdominal pain. No nausea or vomiting. No diarrhea or constipation. No hematemesis. No hematochezia. GENITOURINARY: No urgency. No frequency. No dysuria. No hematuria. No obstructive symptoms. No discharge. No pain. No significant abnormal bleeding. MUSCULOSKELETAL: No musculoskeletal pain; no joint swelling. NEUROLOGICAL: No headache. No neck pain. No syncope. No seizures. No dizziness. PSYCHIATRIC: Not anxious. No depression. No suicidal thoughts. No homicidal thoughts. SKIN: No rash. No lesions. No wounds. ENDOCRINE: No unexplained weight loss. No weight gain. HEMATOLOGIC/LYMPHATIC: No anemia. No purpura. No petechiae. No prolonged or excessive bleeding. No palpable lymph nodes. PHYSICAL EXAMINATION: VITAL SIGNS: Temperature 97.8, pulse 63, respiratory rate 18, blood pressure 148/90 and pulse ox 97%. HEENT: Head normocephalic, atraumatic. Eyes: Extraocular muscles are intact. Pupils are equal, round and reactive to light and accommodation. Ears: No lesions. Nose appeared normal. Throat: No exudate or erythema. NECK: Supple. No JVD, no carotid bruit. No lymphadenopathy or thyromegaly. LUNGS: Decreased breath sounds with crepitations bilaterally but good air entry. Percussion note normal. Chest symmetrical. HEART: S1, S2, no S3. No murmurs. No cyanosis or clubbing. No ascites. Pulses: Dorsalis pedis and posterior tibial pulses +1 to +2 bilaterally. ABDOMEN: Soft. Nontender. Bowel sounds active. No CVA tenderness. No mass felt. EXTREMITIES: No edema. Full range of motion of all extremities, equal. NEUROLOGIC: No focal deficit. Cranial nerves II through XII are grossly intact. No headache. No double vision. SKIN: Not dry. Intact. Turgor - normal. LYMPHATIC: No palpable lymph nodes/no lymphedema. MUSCULOSKELETAL: Normal joints with no swelling. Muscle tone is normal. LABS: Hgb 11.3, hct 34, WBC 13,000 normal differential, creatinine 0.6, BUN 18, potassium 4.1. ASSESSMENT: 1. COVID 19 pneumonia post COVID status with shortness of breath with no evidence of any acute findings PLAN: 1. Discharge the patient home 2. Bystolic will be decreased to 5mg as the patient's heart rate goes down to upper 40s 3. Amlodipine is added 5mg at night along with antihypertensive medication. 4. The patient's arterial blood gasses are practically normal. TIME SPENT: More than 30 minutes. Plan and coordination of the patient's care discussed in the presence of nurse. FEMI
--- NOTE | 2021-08-04 13:53 | PN ---
DATE OF SERVICE: 07/30/21 SUBJECTIVE: The patient was seen and examined with the Nurse Practitioner. The patient's condition is stable. She is up and about. Her three step was negative for any oxygen requirement. BMI is 33 and advised to lose weight. Advised to walk everyday more than two miles. The patient's cardiovascular status so far is normal. Echo showed normal LV contractility and enlarged LA cavity,discussed about it. She is going to be on anti-hypertensive medication with reduced dose Bystolic. CONDITION: Stable. TIME SPENT: More than 30 minutes. Plan and coordination of the patient's care discussed in the presence of nurse. FEMI
--- NOTE | 2021-08-25 11:01 | DS ---
DATE OF SERVICE: 07/30/21 FINAL DIAGNOSIS: 1. Right upper lobe PE 2. Recent COVID 19 infection, should be on day 17 post COVID 3. Bilateral COVID pneumonia 4. Dehydration 5. Hypertension 6. TIA DISCHARGE INSTRUCTIONS: Discharge home. No NSAIDS. Followup with Dr. Stark/Tiffanie Pedroza/Zahira Nielson August 07 at 10:15. MEDICATIONS AT DISCHARGE: Furosemide 40mg PO QAM Potassium Chloride 10meq PO QAM Benicar 40mg PO daily Requip 1mg PO bedtime Xarelto 15mg PO BID Metformin 500mg pO daily Ondansetron 4mg PO TID PRN Linzess 75mcg PO daily NEW PRESCRIPTIONS: Prednisone 10mg PO BID for 7 days Symbicort 2 puff inhalation BID Bystolic 5mg PO daily Norvasc 5mg PO BEDTIME DISCONTINUED MEDICATIONS: Aspirin 81mg PO daily Bystolic 10mg pO daily DIET INSTRUCTIONS: Normal diet ACTIVITY: Resume as tolerated HOSPITAL COURSE: 71 year old white female who presented to our office. She had been to the emergency room at [facility] on the 17 of July and had tested positive for COVID. After reviewing her records it was noted that she had a right upper lobe PE and CT also revealed she had bilateral pneumonia. Oxygen saturation was normal at 95%. They sent her home with a prescription with Xarelto and no antibiotics. We did call her out some antibiotics a few days ago and she finished a Z-pack and steroids. She presented to our office with mild tachycardia. She was complaining of weakness, fatigues and very shortness of breath with just minimal exertion including walking to the bathroom. We continued her on Xarelto at 15mg BID and started her on Antibiotics again Rocephin IV along with Zithromax IV and started her on IV steroids Decadron and gave IV fluids normal saline at 75cc. Over the course of the next several days her fatigue did improve, her appetite had improved. Chest CT did not show PE but did show that she still had some bilateral multifocal pneumonia ABG were normal. While hospitalized she did have some bradycardia and some hypotension. We decreased her Bystolic to 5mg daily instead of BID. Also started her on a Symbicort inhaler 160 two puffs twice daily. She will go home on Prednisone 10mg BID for the next 7 days. We have instructed the risks of bleeding associated with Xarelto that she is not take any NSAIDS. She is to report any sort of bleeding. Her hgb has been stable while being here. She does not qualify for oxygen at home. We have discussed effects of COVID, long COVID including continuous fatigue. Again her condition has improved. Nausea has resolved. She has been eating well for past 36 hours. She states that she is feeling well enough to go home. She recently lost her brother and her [id number] to COVID and she would like to attend their funerals. We will followup with her in the office next week. TIME SPENT: More than 60 minutes. FEMI
== END 2021-07-30 12:45 | disposition home or self-care (01) | DRG 177 ==
LOC: MEDSURG A 11:58
PROVIDERS: ADMIT Internal Medicine; ATTEND Internal Medicine

== ENCOUNTER 2023-11-16 11:05 | Inpatient (IN) ==
--- NOTE | 2023-11-16 12:04 | ED.PDOC ---
General ED Provider: Dr. HEIKE MOSER Chief Complaint: Abdominal Pain Stated Complaint: Patient is a 73-year-old female who has a history of diverticulosis and diverticulitis who states that she started having left lower quadrant abdominal pain 2 days ago and is worse today with nausea and vomiting today x 2. He states that it feels like previous diverticulitis. She states she has previously had mastectomy and appendectomy. Time Seen by Provider: 11/16/23 11:47 Information Source: Patient Primary Care Provider: DARIEN BRAR MD Nursing and Triage Documentation Reviewed and Agree: Yes What is Opioid Naive?: *Opioid Naive implies the patient is not already taking opioids or not chronically receiving opioids on a daily basis. *PRN dosing is not "usually" associated with tolerance. *Patients are at higher risk of over-sedation and aspiration. What is Opioid Tolerant?: *Opioid Tolerance implies less than the expected response to an opioid. *Acquired tolerance is defined by the patient taking 60mg of oral morphine daily (or equianalgesic dose of another opioid) for 1 week or more. *Often associated with chronic pain. *May take more than usual dose to achieve desired pain control. Review of Systems Review Of Systems Constitutional: Reports No symptoms PFSH Medical History Shortness of breath R06.02 - Shortness of breath (ICD-10) Chest pain R07.9 - CHEST PAIN, UNSPECIFIED (ICD-10) Abdominal pain R10.9 - UNSPECIFIED ABDOMINAL PAIN (ICD-10) Headache R51.9 - Headache, unspecified (ICD-10) Esophageal spasm K22.4 - Dyskinesia of esophagus (ICD-10) Seasonal allergies J30.2 - Other seasonal allergic rhinitis (ICD-10) Arthritis M19.90 - Unspecified osteoarthritis, unspecified site (ICD-10) Elevated cholesterol E78.00 - Pure hypercholesterolemia, unspecified (ICD-10) Family History Mother Cancer Seasonal allergies Thyroid condition FATHER Cardiac disease Seasonal allergies Hypertension SISTER Diabetes Seasonal allergies BROTHER Seasonal allergies MATERNAL GRANDMOTHER Diabetes Cancer PATERNAL GRANDMOTHER Cancer PATERNAL GRANDFATHER Cardiac disease Cancer Social History Smoking and tobacco status: Never smoker Passive smoking exposure: Yes (parents and siblings) Who is smoking: parent and sibling Alcohol intake: current Alcohol intake frequency: holidays/special occasions only Substance use type: does not use Household members: spouse Housing: house Marital status: M Lives independently: Yes Number of children: 5 service: No Current occupational status: retired History of recent travel: No Current gender identity: female Seatbelt use: always Helmet use: Yes Working smoke detector in home: Yes Fire extinguisher in home: Yes Carbon monoxide detector in home: Yes Surgical History History of shoulder surgery Z98.890 - Other specified postprocedural states (ICD-10) History of hip surgery Z98.890 - Other specified postprocedural states (ICD-10) H/O knee surgery Z98.890 - Other specified postprocedural states (ICD-10) History of musculoskeletal system surgery Back Surgery 1997 Knee Surgery left 2012 Hip left 2015 Z98.890 - Other specified postprocedural states (ICD-10) Status post tonsillectomy 1968 Z90.89 - Acquired absence of other organs (ICD-10) Status post hysterectomy 1979 Z90.710 - Acquired absence of both cervix and uterus (ICD-10) Status post hernia repair 2004 Z98.890 - Other specified postprocedural states (ICD-10) Status post cholecystectomy 1986 Z90.49 - Acquired absence of other specified parts of digestive tract (ICD- 10) Cataract extraction and insertion of intraocular lens Status post appendectomy 1986 Z90.49 - Acquired absence of other specified parts of digestive tract (ICD- 10) Female Reproductive History Menstrual Hx Hysterectomy: Yes Hx Tubal Ligation: No Physical Exam Physical Exam Appearance: Reports Ill-appearing Pain Distress: Severe Eyes: Reports JULIA and EOMI Respiratory: Reports Airway patent and Breath sounds clear Cardiovascular: Reports RRR and Pulses normal Musculoskeletal: Reports Normal strength and ROM intact Skin: Reports Warm and Dry Neurological: Reports Motor intact Psychiatric: Reports Anxious Interpretation Radiology Interpretation Radiology Interpretation By: Radiologist Radiology Results: Positive Exam Interpreted: CT Scan ( Acute uncomplicated sigmoid diverticulitis. ) Physician Notification Case Discussed Physician Notified: KATE QUEEN Time of Notification: 14:00 (Accepts Patient for admission. Wants full admit.) Course Course 11/16/23 11:26 11/16/23 11:26 Orders, Labs, Meds: Lab Review 11/16/23 11/16/23 11/16/23 11:22 11:26 14:15 WBC 21.31 H RBC 4.87 Hgb 14.4 Hct 43.3 MCV 88.9 MCH 29.6 MCHC 33.3 RDW Coeff of [place] 13.4 Plt Count 329 Immature Gran % (Auto) 0.4 Neut % (Auto) 80.6 H Lymph % (Auto) 8.9 L [place] % (Auto) 9.8 Eos % (Auto) 0.1 Baso % (Auto) 0.2 Neut # (Auto) 17.2 H Lymph # (Auto) 1.9 [place] # (Auto) 2.1 H Eos # (Auto) 0.0 Baso # (Auto) 0.0 Immature Gran # (Auto) 0.1 Sodium 140.6 Potassium 3.76 Chloride 101.4 Carbon Dioxide 30.2 H Anion Gap 12.76 BUN 14.1 Creatinine 0.91 Estimated GFR (MDRD) 61.00 BUN/Creatinine Ratio 15.49 Glucose 167.9 H Calcium 10.02 Total Bilirubin 1.65 H AST 27.5 ALT 28.3 Alkaline Phosphatase 122.1 Total Protein 7.86 Albumin 4.54 Globulin 3.32 Albumin/Globulin Ratio 1.36 Amylase 48.2 Lipase 50.4 Urine Color Dark Urine Clarity Slightly Urine pH 5.5 Ur Specific [place] 1.025 Urine Protein 1+ H Urine Glucose (UA) Negative Urine Ketones Negative Urine Blood Trace-intact H Urine Nitrite Negative Urine Bilirubin Negative Urine Urobilinogen 1.0 H Ur Leukocyte Esterase Negative Urine Microscopic RBC 5-10 Urine Microscopic WBC 5-10 Ur Squamous Epith Cells 5-10 Amorphous Sediment Trace Urine Bacteria Trace Hyaline Casts 2-5 Urine Mucus Trace SARS CoV-2 RNA Rapid HAY Negative Orders Category Date Time Status ADMIT PATIENT INPATIENT .TO [facility] (MONITORED BED) ADMISSION 11/16/23 14:43 Active ACCUCHECK (MED/SURG, SCU) [BLOOD GLUCOSE MONITORING ( CARE 11/16/23 15:01 Active MED/SURG)] Q4HR ACTIVITY .Up With Assistance CARE 11/16/23 15:01 Active INTAKE & OUTPUT Q8HR CARE 11/16/23 15:01 Active NPO REMINDER: IMAGING ONCE CARE 11/16/23 12:01 Completed TELEMETRY MONITORING TELE CARE 11/16/23 14:44 Active VITAL SIGNS Q4HR CARE 11/16/23 15:01 Active NOTHING BY MOUTH DIETARY 11/16/23 Dinner Ordered ED IV/MEDIPORT/POWERPORT .ONCE EMERGENCY 11/16/23 11:53 Active AMYLASE Stat LAB 11/16/23 11:26 Completed CBC W/ AUTO DIFF DAILY@0600 LAB 11/17/23 06:00 Ordered CBC W/ AUTO DIFF DAILY@0600 LAB 11/18/23 06:00 Ordered CBC W/ AUTO DIFF Stat LAB 11/16/23 11:26 Completed COMPREHENSIVE METABOLIC PANEL DAILY@0600 LAB 11/17/23 06:00 Ordered COMPREHENSIVE METABOLIC PANEL DAILY@0600 LAB 11/18/23 06:00 Ordered COMPREHENSIVE METABOLIC PANEL Stat LAB 11/16/23 11:26 Completed LIPASE Stat LAB 11/16/23 11:26 Completed SARS COV-2 RNA RAPID HAY Stat LAB 11/16/23 14:15 Completed URINALYSIS C & S IF INDICATED Stat LAB 11/16/23 11:22 Completed URINE CULTURE Stat LAB 11/16/23 11:22 Received 0.9 % Sodium Chloride [Saline Flush] Meds 11/16/23 11:53 Active 1 syr IVF PRN PRN Acetaminophen Meds 11/16/23 13:27 Discontinued 1,000 mg in 100 ml IV ONCE Acetaminophen [Tylenol] Meds 11/16/23 15:01 Active 650 mg PO Q4H PRN Hydromorphone HCl [Dilaudid 1 mg/ml Syringe] Meds 11/16/23 11:53 Discontinued 1 mg IVP ONCE STA Levofloxacin/D5w [Levaquin 250 mg/50 ml D5w] Meds 11/16/23 15:01 Discontinued 250 mg in 50 ml IV ONCE Levofloxacin/D5w [Levaquin 500 mg/100 ml D5w] Meds 11/16/23 13:26 Discontinued 500 mg in 100 ml IV ONCE Levofloxacin/D5w [Levaquin 750 mg/150 ml D5w] Meds 11/17/23 09:00 Active 750 mg in 150 ml IV DAILY Metronidazole/Sodium Chloride [Flagyl 500 mg/100 ml] Meds 11/16/23 15:05 Active 500 mg in 100 ml IV Q8HR Morphine Sulfate [Morphine 2 mg/ml Syringe] Meds 11/16/23 15:01 Active 2 mg IVP Q6H PRN Ondansetron HCl/Pf [Zofran 4 mg/2 ml] Meds 11/16/23 11:53 Discontinued 4 mg IVP ONCE STA Ondansetron HCl/Pf [Zofran 4 mg/2 ml] Meds 11/16/23 15:01 Active 4 [address] IVP Q[address]H PRN CT ABDOMEN/PELVIS W CONTRAST Stat RADS 11/16/23 12:01 Completed Medications Generic Name Dose Route Start Last Admin Trade Name Freq PRN Reason Stop Dose Admin Acetaminophen 650 mg 11/16/23 15:01 Acetaminophen 325 Mg Tablet PO Q4H PRN Mild Pain Albuterol Sulfate 2 puff 11/16/23 16:44 Albuterol Sulfate 8 Gm Inhaler IH Q4-6H PRN Wheezing Budesonide/Formoterol Fumarate 2 puff 11/16/23 21:00 11/16/23 20:21 Budesonide/Formoterol Fumarate 160/4.5 Mcg Inhaler IH 2 puff BID GINNY Administration Duloxetine HCl 60 mg 11/17/23 09:00 Duloxetine Hcl 30 Mg Capsule.Dr PO DAILY GINNY Levofloxacin/Dextrose 750 mg in 150 mls @ 100 mls/hr 11/17/23 09:00 Levaquin 750 Mg/150 Ml D5w IV 11/20/23 08:59 DAILY GINNY Metronidazole 500 mg in 100 mls @ 100 mls/hr 11/16/23 15:05 11/16/23 20:21 Flagyl 500 Mg/100 Ml IV 11/19/23 15:04 100 mls/hr Q8HR GINNY Administration Lactated Ringer's 1,000 mls @ 75 mls/hr 11/16/23 15:30 11/16/23 15:30 Lactated Ringers IV 75 mls/hr .[id number] GINNY Administration Lorazepam 1 mg 11/16/23 21:00 Lorazepam 1 Mg Tablet PO BEDTIME PRN Insomnia Morphine Sulfate 2 mg 11/16/23 15:01 11/16/23 16:02 Morphine Sulfate 2 Mg/Ml Syringe IVP 2 mg Q6H PRN Administration MODERATE PAIN Nebivolol 5 mg 11/17/23 09:00 Nebivolol Hcl 5 Mg Tablet PO DAILY GINNY Olmesartan 40 mg 11/17/23 09:00 Olmesartan Medoxomil 20 Mg Tablet PO DAILY GINNY Ondansetron HCl 4 mg 11/16/23 15:01 11/16/23 15:37 Ondansetron Hcl/Pf 4 Mg/2 Ml Sdv IVP 4 mg Q6H PRN Administration Nausea / Vomiting Rosuvastatin Calcium 40 mg 11/16/23 21:00 11/16/23 20:21 Rosuvastatin Calcium 10 Mg Tablet PO 40 mg BEDTIME GINNY Administration Sodium Chloride 1 syr 11/16/23 11:53 11/16/23 12:08 0.9% Sodium Chloride 10 Ml Disp.Syrin IVF 1 syr PRN PRN Administration To flush IV Tiotropium [place] 1 cap 11/17/23 09:00 Tiotropium [place] 18 Mcg Cap.W.Dev IH DAILY GINNY Venlafaxine HCl 37.5 mg 11/17/23 09:00 Venlafaxine Hcl 37.5 Mg Cap.Er.24h PO DAILY GINNY Discontinued Medications Generic Name Dose Route Start Last Admin Trade Name Freq PRN Reason Stop Dose Admin Fentanyl Citrate 50 mcg 11/16/23 19:14 11/16/23 20:32 Fentanyl 50 Mcg/Ml Sdv IVP 11/16/23 19:15 Not Given ONCE ONE Fentanyl Citrate 25 mcg 11/16/23 19:14 11/16/23 19:30 Fentanyl 50 Mcg/Ml Sdv IVP 11/16/23 19:15 25 mcg ONCE ONE Administration Hydromorphone HCl 1 mg 11/16/23 11:53 11/16/23 12:09 Hydromorphone Hcl 1 Mg/Ml Syringe IVP 11/16/23 11:54 1 mg ONCE STA Administration Levofloxacin/Dextrose 500 mg in 100 mls @ 100 mls/hr 11/16/23 13:26 11/16/23 13:57 Levaquin 500 Mg/100 Ml D5w IV 11/16/23 14:25 100 mls/hr ONCE STA Administration Acetaminophen 1,000 mg in 100 mls @ 400 mls/hr 11/16/23 13:27 11/16/23 13:37 Acetaminophen IV 11/16/23 13:41 400 mls/hr ONCE ONE Administration Levofloxacin/Dextrose 250 mg in 50 mls @ 50 mls/hr 11/16/23 15:01 11/16/23 15:50 Levaquin 250 Mg/50 Ml D5w IV 11/16/23 16:00 50 mls/hr ONCE ONE Administration Ondansetron HCl 4 mg 11/16/23 11:53 11/16/23 12:08 Ondansetron Hcl/Pf 4 Mg/2 Ml Sdv IVP 11/16/23 11:54 4 mg ONCE STA Administration Vital Signs: Temp Pulse Resp BP Pulse Ox 11/16/23 11:09 98.9 F 111 H 18 146/80 H 95 Discharge Plan Discharge Patient Disposition: ADMITTED INPATIENT Discharge Problem: Diverticulitis of sigmoid colon Did you review [place] [employer] for ALL controlled substances?: Not Applicable ED Provider: HEIKE MOSER Condition: Fair Physician Progress Note: []
[2023-11-16] MEDS: ZOFRAN 4 MG/2 ML IVP STA (12:08)
[2023-11-16] MEDS: DILAUDID 1 MG/ML SYRINGE IVP STA (12:09)
[2023-11-16 12:11] LABS: BASOPHILS % (AUTO) 0.2 % (0.0-3.0); EOSINOPHILS % (AUTO) 0.1 % (0.0-7.0); HEMATOCRIT 43.3 % (37.0-47.0); HEMOGLOBIN 14.4 g/dl (12.0-16.0); IMMATURE GRANULOCYTE # (AUTO) 0.1 (0.0-1.0); IMMATURE GRANULOCYTE % (AUTO) 0.4 % (0.0-5.0); LYMPHOCYTES # (AUTO) 1.9 K/uL (0.60-3.4); LYMPHOCYTES % (AUTO) 8.9 (10.0-50.0); MEAN CORPUSCULAR HEMOGLOBIN 29.6 pg (27.0-31.0); MEAN CORPUSCULAR HGB CONC 33.3 (31.8-35.4); MEAN CORPUSCULAR VOLUME 88.9 fl (81.0-99.0); MONOCYTES # (AUTO) 2.1 K/uL (0.4-2.0); MONOCYTES % (AUTO) 9.8 (0-10); NEUTROPHILS # (AUTO) 17.2 K/ul (2.0-6.9); NEUTROPHILS % (AUTO) 80.6 % (42.2-75.2); PLATELET COUNT 329 10^3/uL (140-440); RDW COEFFICIENT OF VARIATION 13.4 % (11.6-14.8); RED BLOOD COUNT 4.87 10^6/ul (4.20-5.40); WHITE BLOOD COUNT 21.31 K/ul (4.6-10.2)
[2023-11-16 12:13] LABS: BILIRUBIN,URINE Negative (NEGATIVE); CLARITY,URINE Slightly (CLEAR); COLOR,URINE Dark (YELLOW); GLUCOSE, URINE (UA) Negative (NEGATIVE); KETONES,URINE Negative (NEGATIVE); LEUKOCYTE ESTERASE ,URINE Negative (NEGATIVE); NITRITE,URINE Negative (NEGATIVE); PH,URINE 5.5 (5-9); PROTEIN,URINE 1+ (NEGATIVE); URINE, BLOOD Trace-intact (NEGATIVE)
[2023-11-16 12:19] LABS: AMORPHOUS SEDIMENT,UR TRACE (NOT PRESENT); BACTERIA,URINE TRACE (NOT PRESENT); MUCUS,URINE TRACE (NOT PRESENT)
[2023-11-16 12:25] LABS: ALANINE AMINOTRANSFERASE 28.3 U/L (0-35); ALBUMIN 4.54 g/dL (3.5-5.0); ALKALINE PHOSPHATASE 122.1 U/L (53-141); AMYLASE 48.2 U/L (30-110); ASPARTATE AMINO TRANSFERASE 27.5 U/L (14-36); BILIRUBIN,TOTAL 1.65 mg/dL (0.2-1.3); BLOOD UREA NITROGEN 14.1 mg/dL (7-17); CALCIUM 10.02 mg/dL (8.4-10.2); CARBON DIOXIDE 30.2 mmol/L (22-30.0); CHLORIDE 101.4 mmol/L (98-107); CREATININE 0.91 mg/dL (0.60-1.30); GLUCOSE 167.9 mg/dL (74-106); LIPASE 50.4 U/L (23-300); POTASSIUM 3.76 mmol/L (3.5-5.1); SODIUM 140.6 mmol/L (134.5-145); TOTAL PROTEIN 7.86 g/dL (6.3-8.2)
--- NOTE | 2023-11-16 13:22 | CT ---
EXAM: CT ABDOMEN AND PELVIS WITH CONTRAST HISTORY: Left lower abdominal pain. TECHNIQUE: CT acquisition of the abdomen and pelvis from the lower thorax through the pelvis followin g IV contrast administration. 2-D coronal and sagittal reformatted images were obtained from the axi al source images. IV Contrast: 100 mL of Omnipaque 350 administered. Oral Contrast: None. CT Dose Reduction Techniques Performed: Yes. COMPARISON:05/06/2023 FINDINGS: Lower Thorax: Within normal limits. Liver: No mass. Normal morphology. Biliary: Cholecystectomy. The biliary system is unremarkable. Pancreas: No mass or evidence of pancreatitis. No duct dilation. Spleen: No mass. No splenomegaly. Calcified granulomas. Adrenals: No mass. Kidneys/Ureters: No renal mass. No calculus or hydronephrosis. GI Tract: Diverticula seen along the sigmoid colon and descending colon. The mid sigmoid colon does show pericolonic inflammation without discrete indication of perforation or fluid collection. Howeve r this is obscured from metallic artifact from bilateral hip arthroplasty. The the remaining colon s hows no focal abnormality. The appendix is not visualized. Small bowel shows no focal abnormality o r obstruction to the stomach is unremarkable. Peritoneal Cavity: No free air, discrete free fluid, fluid collections or other areas of inflammation . Retroperitoneum: No fluid collection. Lymph Nodes: No lymphadenopathy. Vasculature: No significant aortic atherosclerotic calcifications. No aortic or iliac aneurysm. Nat iac, superior mesenteric, and inferior mesenteric arteries are grossly patent. Limited assessment of the portal and hepatic veins and IVC is unremarkable within limitations of the phase of IV contrast. Pelvis: Pelvic structures are grossly normal although mainly obscured from the metallic artifact from bilateral hip arthroplasty. Bones/Soft Tissues: No fracture or lytic lesion. The mild degenerative change seen spine. Postsurgic al changes from L4-S1 without sequelae. Bilateral hip arthroplasty without sequelae. Visualized abd ominal wall soft tissues are unremarkable. IMPRESSION: 1. Acute uncomplicated sigmoid diverticulitis. 2. Other chronic and non emergent findings as above. All CT scans are performed using dose optimization techniques as appropriate to the performed exam an d include at least one of the following: Automated exposure control, adjustment of the mA and/or kV according t o size, and the use of iterative reconstruction technique.
[2023-11-16] MEDS: ACETAMINOPHEN 1,000 MG/100 ML BAG IV ONE (13:37)
[2023-11-16] MEDS: LEVAQUIN 500 MG/100 ML D5W 500 MG/100 ML BAG IV STA (13:57)
[2023-11-16 14:39] LABS: SARS COV-2 RNA RAPID NAAT NEGATIVE (NEGATIVE)
--- NOTE | 2023-11-16 14:45 | PCM ---
Date of Service Date Seen by Provider: 11/16/23 Time Seen by Provider: 14:45 Admit Day/Time Admission Date: 11/16/23 Admission Time: 14:43 Reason for Admission Chief Complaint: SIGMOID DIVERTICULITIS Hospital Provider Hospital Provider: Kate Queen PA-C, [facility] Primary Care Physician Primary Care Physician: DARIEN STARK MD History of Present Illness History of Present Illness: Patient is a 73-year-old female with past medical history of recurrent diverticulitis, diabetes, obesity, fibromyalgia, anxiety, hypertension, hyperlipidemia, irritable bowel syndrome who presents to the ER with 4-day history of left-sided abdominal pain. She she felt as though it was similar to previous episodes of diverticulitis. She states that she has had fevers chills on and off. She has had some nausea and vomiting as well. She has had decreased intake. She denies any diarrhea or bloody stools, she has actually been more constipated. States she has not had a bowel movement in 5 days. She feels very bloated. She is status post multiple abdominal surgeries. In the ER she was found to have acute uncomplicated diverticulitis on CT. Her white blood cell count is 21. Otherwise labs are rather unremarkable. She was given Zofran, Levaquin, Dilaudid, Tylenol with some relief. She will be admitted to [facility]. Of note she states that she is diabetic and she just recently was prescribed M ounjaro but she has not yet picked up this prescription/started it. She states that she takes Lasix daily for edema but is unaware of any history of heart failure. She also sees a GI at [facility] in [place] for IBS related symptoms. She states that she last had a colonoscopy beginning of 2023 which was normal. Case Discussed With Case Discussed With: Patient's case was discussed with the ER Physicians, Dr. Zhang. [facility] Medical History Shortness of breath R06.02 - Shortness of breath (ICD-10) Chest pain R07.9 - CHEST PAIN, UNSPECIFIED (ICD-10) Abdominal pain R10.9 - UNSPECIFIED ABDOMINAL PAIN (ICD-10) Headache R51.9 - Headache, unspecified (ICD-10) Esophageal spasm K22.4 - Dyskinesia of esophagus (ICD-10) Seasonal allergies J30.2 - Other seasonal allergic rhinitis (ICD-10) Arthritis M19.90 - Unspecified osteoarthritis, unspecified site (ICD-10) Elevated cholesterol E78.00 - Pure hypercholesterolemia, unspecified (ICD-10) Surgical History History of shoulder surgery Z98.890 - Other specified postprocedural states (ICD-10) History of hip surgery Z98.890 - Other specified postprocedural states (ICD-10) H/O knee surgery Z98.890 - Other specified postprocedural states (ICD-10) History of musculoskeletal system surgery Back Surgery 1997 Knee Surgery left 2012 Hip left 2016 Z98.890 - Other specified postprocedural states (ICD-10) Status post tonsillectomy 1968 Z90.89 - Acquired absence of other organs (ICD-10) Status post hysterectomy 1979 Z90.710 - Acquired absence of both cervix and uterus (ICD-10) Status post hernia repair 2004 Z98.890 - Other specified postprocedural states (ICD-10) Status post cholecystectomy 1986 Z90.49 - Acquired absence of other specified parts of digestive tract (ICD- 10) Cataract extraction and insertion of intraocular lens Status post appendectomy 1986 Z90.49 - Acquired absence of other specified parts of digestive tract (ICD- 10) Family History Mother Cancer Seasonal allergies Thyroid condition FATHER Cardiac disease Seasonal allergies Hypertension SISTER Diabetes Seasonal allergies BROTHER Seasonal allergies MATERNAL GRANDMOTHER Diabetes Cancer PATERNAL GRANDMOTHER Cancer PATERNAL GRANDFATHER Cardiac disease Cancer Social History Smoking and tobacco status: Never smoker Passive smoking exposure: Yes (parents and siblings) Who is smoking: parent and sibling Alcohol intake: current Alcohol intake frequency: holidays/special occasions only Substance use type: does not use Household members: spouse Housing: house Marital status: M Lives independently: Yes Number of children: 5 service: No Current occupational status: retired History of recent travel: No Current gender identity: female Seatbelt use: always Helmet use: Yes Working smoke detector in home: Yes Fire extinguisher in home: Yes Carbon monoxide detector in home: Yes Allergies Allergies Allergy/AdvReac Type Severity Reaction Status Date / Time latex AdvReac Intermediate RASH, Verified 11/16/23 11:17 BURNING codeine AdvReac Mild Unconscious Verified 11/16/23 11:17 ness Current Medications Home Medications albuterol sulfate 90 mcg/actuation aerosol inhaler 2 inh inhalation Q4-6H PRN shortness of breath or wheezing #8.5 grams 12/31/22 [Rx Confirmed 11/16/23 Last Taken Unknown] fluticasone fur. 200 mcg-umeclid 62.5 mcg-vilant 25 mcg inhalat.powder (Trelegy Ellipta) 1 inh inhalation QDAY #28 ea 12/31/22 [Rx Confirmed 11/16/23 Last Taken Unknown] duloxetine 60 mg capsule,delayed release 60 mg PO QDAY #90 caps 09/01/23 [Rx Confirmed 11/16/23 Last Taken Unknown] furosemide 40 mg tablet 40 mg PO QAM #90 tabs 09/01/23 [Rx Confirmed 11/16/23 Last Taken Unknown] linaclotide 145 mcg capsule (Linzess) 145 mcg PO QAM 09/01/23 [History Confirmed 11/16/23 Last Taken Unknown] lorazepam 1 mg tablet 1 mg PO QHS PRN sleep #30 tabs 09/01/23 [Rx Confirmed 11/16/23 Last Taken Unknown] nebivolol 5 mg tablet 5 mg PO QDAY 09/01/23 [History Confirmed 11/16/23 Last Taken Unknown] olmesartan 40 mg tablet (Benicar) 40 mg PO QDAY #90 tabs 09/01/23 [Rx Confirmed 11/16/23 Last Taken Unknown] potassium chloride 10 mEq tablet,extended release 10 meq PO QAM #90 tabs 09/01/23 [Rx Confirmed 11/16/23 Last Taken Unknown] tirzepatide 10 mg/0.5 mL subcutaneous pen injector (Mounjaro) 10 mg (0.5 mL) subcut QWEEK #2 mL 10/31/23 [Rx Confirmed 11/16/23 Last Taken Unknown] venlafaxine 37.5 mg capsule,extended release 24 hr (Effexor XR) 37.5 mg PO QDAY #30 caps 10/31/23 [Rx Confirmed 11/16/23 Last Taken Unknown] rosuvastatin 40 mg tablet (Crestor) 40 mg PO BEDTIME 11/16/23 [History Confirmed 11/16/23 Last Taken Unknown] Home Acetaminophen (Acetaminophen 325 Mg Tablet) 650 mg PO Q4H PRN PRN Reason: Mild Pain Albuterol Sulfate (Albuterol Sulfate 8 Gm Inhaler) 2 puff IH Q4-6H PRN PRN Reason: Wheezing Budesonide/Formoterol Fumarate (Budesonide/Formoterol Fumarate 160/4.5 Mcg Inhaler) 2 puff IH BID [facility] Last Admin: 11/17/23 08:24 Dose: 2 puff Duloxetine HCl (Duloxetine Hcl 30 Mg Capsule.Dr) 60 mg PO DAILY [facility] Last Admin: 11/17/23 08:22 Dose: 60 mg Levofloxacin/Dextrose (Levaquin 750 Mg/150 Ml D5w) 750 mg in 150 mls @ 100 mls/hr IV DAILY [facility] Stop: 11/20/23 08:59 Last Admin: 11/17/23 08:21 Dose: 100 mls/hr Metronidazole (Flagyl 500 Mg/100 Ml) 500 mg in 100 mls @ 100 mls/hr IV Q8HR [facility] Stop: 11/19/23 15:04 Last Admin: 11/17/23 05:25 Dose: 100 mls/hr Lactated Ringer's (Lactated Ringers) 1,000 mls @ 75 mls/hr IV .[id number] [facility] Last Admin: 11/17/23 05:25 Dose: 75 mls/hr Lorazepam (Lorazepam 1 Mg Tablet) 1 mg PO BEDTIME PRN PRN Reason: Insomnia Last Admin: 11/16/23 21:42 Dose: 1 mg Morphine Sulfate (Morphine Sulfate 2 Mg/Ml Syringe) 2 mg IVP Q6H PRN PRN Reason: MODERATE PAIN Last Admin: 11/17/23 03:32 Dose: 2 mg Nebivolol (Nebivolol Hcl 5 Mg Tablet) 5 mg PO DAILY [facility] Last Admin: 11/17/23 08:22 Dose: 5 mg Olmesartan (Olmesartan Medoxomil 20 Mg Tablet) 40 mg PO DAILY [facility] Last Admin: 11/17/23 08:23 Dose: 40 mg Ondansetron HCl (Ondansetron Hcl/Pf 4 Mg/2 Ml Sdv) 4 mg IVP Q6H PRN PRN Reason: Nausea / Vomiting Last Admin: 11/17/23 03:32 Dose: 4 mg Rosuvastatin Calcium (Rosuvastatin Calcium 10 Mg Tablet) 40 mg PO BEDTIME [facility] Last Admin: 11/16/23 20:21 Dose: 40 mg Sodium Chloride (0.9% Sodium Chloride 10 Ml Disp.Syrin) 1 syr IVF PRN PRN PRN Reason: To flush IV Last Admin: 11/16/23 12:08 Dose: 1 syr Tiotropium [place] (Tiotropium [place] 18 Mcg Cap.W.Dev) 1 cap IH DAILY [facility] Last Admin: 11/17/23 08:26 Dose: 1 cap Venlafaxine HCl (Venlafaxine Hcl 37.5 Mg Cap.Er.24h) 37.5 mg PO DAILY [facility] Last Admin: 11/17/23 08:22 Dose: 37.5 mg Discontinued Medications Fentanyl Citrate (Fentanyl 50 Mcg/Ml Sdv) 50 mcg IVP ONCE ONE Stop: 11/16/23 19:15 Last Admin: 11/16/23 20:32 Dose: Not Given Fentanyl Citrate (Fentanyl 50 Mcg/Ml Sdv) 25 mcg IVP ONCE ONE Stop: 11/16/23 19:15 Last Admin: 11/16/23 19:30 Dose: 25 mcg Hydromorphone HCl (Hydromorphone Hcl 1 Mg/Ml Syringe) 1 mg IVP ONCE STA Stop: 11/16/23 11:54 Last Admin: 11/16/23 12:09 Dose: 1 mg Levofloxacin/Dextrose (Levaquin 500 Mg/100 Ml D5w) 500 mg in 100 mls @ 100 mls/hr IV ONCE STA Stop: 11/16/23 14:25 Last Admin: 11/16/23 13:57 Dose: 100 mls/hr Acetaminophen (Acetaminophen) 1,000 mg in 100 mls @ 400 mls/hr IV ONCE ONE Stop: 11/16/23 13:41 Last Admin: 11/16/23 13:37 Dose: 400 mls/hr Levofloxacin/Dextrose (Levaquin 250 Mg/50 Ml D5w) 250 mg in 50 mls @ 50 mls/hr IV ONCE ONE Stop: 11/16/23 16:00 Last Admin: 11/16/23 15:50 Dose: 50 mls/hr Ondansetron HCl (Ondansetron Hcl/Pf 4 Mg/2 Ml Sdv) 4 mg IVP ONCE STA Stop: 11/16/23 11:54 Last Admin: 11/16/23 12:08 Dose: 4 mg Opioid Naive vs. Tolerant Does Patient Take Opioids?: No Is Patient Opioid Naive?: Yes What is Opioid Naive?: *Opioid Naive implies the patient is not already taking opioids or not chronically receiving opioids on a daily basis. *PRN dosing is not "usually" associated with tolerance. *Patients are at higher risk of over-sedation and aspiration. Is Patient Opioid Tolerant?: No What is Opioid Tolerant?: *Opioid Tolerance implies less than the expected response to an opioid. *Acquired tolerance is defined by the patient taking 60mg of oral morphine daily (or equianalgesic dose of another opioid) for 1 week or more. *Often associated with chronic pain. *May take more than usual dose to achieve desired pain control. Review of Systems Constitutional: Reports Fever, Chills, Weakness and Loss of appetite Head: Reports Normocephalic and Atraumatic Throat: Denies Sore Throat or Difficulty Swallowing Cardiovascular: Denies Chest pain, Chest Pressure or Edema Respiratory: Denies Cough or Shortness of air Gastrointestinal: Reports Nausea, Vomiting, Constipation and Abdominal pain; Denies Diarrhea, Black Tarry Stools or Melena Genitourinary: Denies Dysuria or Frequency Dermatologic: Denies Rashes Neurological: Reports Weakness Physical examination Most Recent Vital Signs: Most Recent Vital Signs Temperature 98.9 F 11/16/23 11:09 Temperature Source Infrared 11/16/23 11:09 Pulse Rate 111 H 11/16/23 11:09 Respiratory Rate 18 11/16/23 11:09 Blood Pressure 146/80 H 11/16/23 11:09 O2 Sat by Pulse Oximetry 95 11/16/23 11:09 Height 5 ft 4 in 11/16/23 11:09 Weight 198 lb 6.4 oz 11/16/23 11:09 Telemetry Heart Rate 45 L 07/30/21 07:00 Telemetry SPO2 97 07/29/21 01:00 Appearance: Positive No Apparent Distress and Alert and Oriented x3 Skin: Positive [place], Warm and Good Turgor; Negative Rashes HEENT: Positive Normocephalic and Atraumatic Neck: Positive Supple and Midline Trachea Chest/Lungs: Positive Clear to Auscultation Bilaterally; Negative Rales, Rhonci or Wheezes Heart: Positive RRR GI/: Positive Soft, Bowel Sounds Normal and Other (+LLQ tenderness with palpation, mildly distended ); Negative Nontender or No Distention Extremities: Negative Edema Neurological: Positive Cranial Nerves Intact, Alert and Oriented Psychiatric: Positive Oriented x4, Appropriate Mood and Appropriate Affect Labs This Visit Labs This Visit: Labs This Visit 11/16/23 11/16/23 11/16/23 11:22 11:26 14:15 WBC 21.31 H RBC 4.87 Hgb 14.4 Hct 43.3 MCV 88.9 MCH 29.6 MCHC 33.3 RDW Coeff of [place] 13.4 Plt Count 329 Immature Gran % (Auto) 0.4 Neut % (Auto) 80.6 H Lymph % (Auto) 8.9 L [place] % (Auto) 9.8 Eos % (Auto) 0.1 Baso % (Auto) 0.2 Neut # (Auto) 17.2 H Lymph # (Auto) 1.9 [place] # (Auto) 2.1 H Eos # (Auto) 0.0 Baso # (Auto) 0.0 Immature Gran # (Auto) 0.1 Sodium 140.6 Potassium 3.76 Chloride 101.4 Carbon Dioxide 30.2 H Anion Gap 12.76 BUN 14.1 Creatinine 0.91 Estimated GFR (MDRD) 61.00 BUN/Creatinine Ratio 15.49 Glucose 167.9 H Calcium 10.02 Total Bilirubin 1.65 H AST 27.5 ALT 28.3 Alkaline Phosphatase 122.1 Total Protein 7.86 Albumin 4.54 Globulin 3.32 Albumin/Globulin Ratio 1.36 Amylase 48.2 Lipase 50.4 Urine Color Dark Urine Clarity Slightly Urine pH 5.5 Ur Specific [place] 1.025 Urine Protein 1+ H Urine Glucose (UA) Negative Urine Ketones Negative Urine Blood Trace-intact H Urine Nitrite Negative Urine Bilirubin Negative Urine Urobilinogen 1.0 H Ur Leukocyte Esterase Negative Urine Microscopic RBC 5-10 Urine Microscopic WBC 5-10 Ur Squamous Epith Cells 5-10 Amorphous Sediment Trace Urine Bacteria Trace Hyaline Casts 2-5 Urine Mucus Trace SARS CoV-2 RNA Rapid HAY Negative Imaging Imaging: EXAM: CT ABDOMEN AND PELVIS WITH CONTRAST HISTORY: Left lower abdominal pain. TECHNIQUE: CT acquisition of the abdomen and pelvis from the lower thorax through the pelvis following IV contrast administration. 2-D coronal and sagittal reformatted images were obtained from the axial source images. IV Contrast: 100 mL of Omnipaque 350 administered. Oral Contrast: None. CT Dose Reduction Techniques Performed: Yes. COMPARISON:05/06/2023 FINDINGS: Lower Thorax: Within normal limits. Liver: No mass. Normal morphology. Biliary: Cholecystectomy. The biliary system is unremarkable. Pancreas: No mass or evidence of pancreatitis. No duct dilation. Spleen: No mass. No splenomegaly. Calcified granulomas. Adrenals: No mass. Kidneys/Ureters: No renal mass. No calculus or hydronephrosis. GI Tract: Diverticula seen along the sigmoid colon and descending colon. The mid sigmoid colon does show pericolonic inflammation without discrete indication of perforation or fluid collection. However this is obscured from metallic artifact from bilateral hip arthroplasty. The the remaining colon shows no focal abnormality. The appendix is not visualized. Small bowel shows no focal abnormality or obstruction to the stomach is unremarkable. Peritoneal Cavity: No free air, discrete free fluid, fluid collections or other areas of inflammation. Retroperitoneum: No fluid collection. Lymph Nodes: No lymphadenopathy. Vasculature: No significant aortic atherosclerotic calcifications. No aortic or iliac aneurysm. Celiac, superior mesenteric, and inferior mesenteric arteries are grossly patent. Limited assessment of the portal and hepatic veins and IVC is unremarkable within limitations of the phase of IV contrast. Pelvis: Pelvic structures are grossly normal although mainly obscured from the metallic artifact from bilateral hip arthroplasty. Bones/Soft Tissues: No fracture or lytic lesion. The mild degenerative change seen spine. Postsurgical changes from L4-S1 without sequelae. Bilateral hip arthroplasty without sequelae. Visualized abdominal wall soft tissues are unremarkable. IMPRESSION: 1. Acute uncomplicated sigmoid diverticulitis. 2. Other chronic and non emergent findings as above. Review Statement Review Statement: I have independently reviewed and interpreted the labs/EKGs/imaging that were ordered by the ER provider. I have reviewed all outside records that are available currently in our EMR including imaging/notes/labs from previous visits. Plan Plan: 1. Acute sigmoid diverticulitis - Pt unable to tolerate PO. Will admit. NPO for now, may advance as tolerated to clear liquids. Accuchecks q4hrs while NPO due to DM, will add D5 fluids if needed. Levaquin and metronidazole IV. Zofran and morphine iv prn. F/u with GI outpatient. Recent colonoscopy normal per patient. 2. Hypertension - Cont home meds 3. DMT2 - Will hold short acting insulin at this time due to NPO status, pt has not yet started mounjaro. Recent a1c 6.6. 4. Hyperlipidemia - Cont home meds 5. Anxiety - Cont home meds DVT Prophylaxis: Lovenox Time Spent: Greater than 80 minutes spent with patient, 50% of the time spent with this patient was devoted to counseling and coordination of care. [facility] minutes spent discussing advance care planning. Admit to: Inpatient Discussed Plan of Care with Dr. Rosina Stark. Medications Medication Orders: Medications Ordered Category Date Time Status 0.9 % Sodium Chloride [Saline Flush] Meds 11/16/23 11:53 Active 1 syr IVF PRN PRN
[2023-11-16] MEDS: LACTATED RINGERS 1,000 ML IV SCH (15:30)
[2023-11-16] MEDS: ZOFRAN 4 MG/2 ML IVP PRN (15:37)
[2023-11-16 15:46] VITALS: BMI 34.1
[2023-11-16] MEDS: LEVAQUIN 250 MG/50 ML D5W 250 MG/50 ML BAG IV ONE (15:50)
[2023-11-16] MEDS: MORPHINE 2 MG/ML SYRINGE IVP PRN (16:02)
[2023-11-16] MEDS ORDERED: VENTOLIN HFA IH PRN (16:44)
[2023-11-16] MEDS: FLAGYL 500 MG/100 ML 500 MG/100 ML BAG IV SCH (16:49)
[2023-11-16] MEDS: SUBLIMAZE IVP ONE ×2 (19:30→20:32)
[2023-11-16] MEDS: CRESTOR PO SCH (20:21)
[2023-11-16] MEDS: SYMBICORT 160-4.5 MCG INHALER IH SCH (20:21)
[2023-11-16] MEDS: ATIVAN PO PRN (21:42)
[2023-11-17 05:24] LABS: HEMATOCRIT 37.4 % (37.0-47.0); HEMOGLOBIN 12.1 g/dl (12.0-16.0); MEAN CORPUSCULAR HEMOGLOBIN 29.2 pg (27.0-31.0); MEAN CORPUSCULAR HGB CONC 32.4 (31.8-35.4); MEAN CORPUSCULAR VOLUME 90.1 fl (81.0-99.0); PLATELET COUNT 261 10^3/uL (140-440); RDW COEFFICIENT OF VARIATION 13.5 % (11.6-14.8); RED BLOOD COUNT 4.15 10^6/ul (4.20-5.40)
[2023-11-17 05:38] LABS: ALANINE AMINOTRANSFERASE 24.7 U/L (0-35); ALBUMIN 3.84 g/dL (3.5-5.0); ALKALINE PHOSPHATASE 91.7 U/L (53-141); ASPARTATE AMINO TRANSFERASE 29.2 U/L (14-36); BILIRUBIN,TOTAL 1.35 mg/dL (0.2-1.3); BLOOD UREA NITROGEN 14.6 mg/dL (7-17); CALCIUM 8.92 mg/dL (8.4-10.2); CARBON DIOXIDE 27.7 mmol/L (22-30.0); CHLORIDE 102.5 mmol/L (98-107); CREATININE 0.84 mg/dL (0.60-1.30); GLUCOSE 141.8 mg/dL (74-106); POTASSIUM 3.73 mmol/L (3.5-5.1); SODIUM 137.9 mmol/L (134.5-145); TOTAL PROTEIN 6.7 g/dL (6.3-8.2)
[2023-11-17 05:39] LABS: ANISOCYTOSIS NOT PRESENT (NOT PRESENT)
[2023-11-17] MEDS: LEVAQUIN 750 MG/150 ML D5W 750 MG/150 ML BAG IV SCH (08:21)
[2023-11-17] MEDS: CYMBALTA PO SCH (08:22)
[2023-11-17] MEDS: EFFEXOR XR PO SCH (08:22)
[2023-11-17] MEDS: BYSTOLIC PO SCH (08:22)
[2023-11-17] MEDS: BENICAR PO SCH (08:23)
[2023-11-17] MEDS: SPIRIVA IH SCH (08:26)
--- NOTE | 2023-11-17 08:51 | PCM.PROG ---
Date/Time Seen Date Seen by Provider: 11/17/23 Time Seen by Provider: 08:40 Provider Provider: [facility]ATE [facility]EN [facility]-C[facility] Chief Complaint Chief Complaint: SIGMOID DIVERTICULITIS Subjective Subjective: Patient is feeling somewhat better today. She is passing gas. Pain and nausea improved. Has tolerated some sprite and wants to try some crackers. Objective Appearance: Positive No Apparent Distress and Alert and Oriented x3 Chest/Lungs: Positive Clear to Auscultation Bilaterally; Negative Rales, Rhonci or Wheezes Heart: Positive RRR GI/: Positive Soft, Bowel Sounds Normal and Tender (+LLQ, mildly distended, improved ) Neurological: Positive Cranial Nerves Intact, Alert and Oriented Vital Signs Vital Signs: Vital Signs: Last 24 Hours 11/16/23 11:09 11/16/23 15:23 11/16/23 15:23 Temperature 98.9 F 97.6 F Temperature Source Infrared Temporal Artery Scan Pulse Rate 111 H 87 Respiratory Rate 18 20 Blood Pressure 146/80 H Blood Pressure Mean Blood Pressure Left Arm 133/64 Blood Pressure Location Blood Pressure Position Sitting O2 Sat by Pulse Oximetry 95 94 L Oxygen Delivery Method Room Air Nasal Cannula Oxygen Flow Rate 2 Height 5 ft 4 in 5 ft 4 in Weight 198 lb 6.4 oz 199 lb Telemetry Type Telemetry Monitoring Telemetry Heart Rate EKG ID Interval EKG QRS Interval Telemetry Strip Reading 11/16/23 15:23 11/16/23 17:58 11/16/23 19:00 Temperature 98.5 F Temperature Source Temporal Artery Scan Pulse Rate 79 Respiratory Rate 20 Blood Pressure 117/77 Blood Pressure Mean 90 Blood Pressure Left Arm Blood Pressure Location Right Arm Blood Pressure Position Sitting O2 Sat by Pulse Oximetry 97 Oxygen Delivery Method Nasal Cannula Oxygen Flow Rate 2 Height Weight Telemetry Type Remote Telemetry Remote Telemetry Telemetry Monitoring Started Continues Telemetry Heart Rate 85 EKG ID Interval 0.14 0.12 EKG QRS Interval 0.06 0.06 Telemetry Strip Reading NSR SR 11/16/23 20:00 11/16/23 20:30 11/17/23 01:00 Temperature 98.1 F Temperature Source Temporal Artery Scan Pulse Rate 84 Respiratory Rate 18 Blood Pressure 116/66 Blood Pressure Mean 82 Blood Pressure Left Arm Blood Pressure Location Left Arm Blood Pressure Position Supine O2 Sat by Pulse Oximetry 98 Oxygen Delivery Method Nasal Cannula Nasal Cannula Oxygen Flow Rate 2 2 Height Weight Telemetry Type Remote Telemetry Telemetry Monitoring Continues Telemetry Heart Rate 90 EKG ID Interval 0.13 EKG QRS Interval 0.06 Telemetry Strip Reading Sinus RHythm 11/17/23 02:00 11/17/23 05:36 11/17/23 07:00 Temperature 98.2 F 98 F Temperature Source Temporal Artery Scan Temporal Artery Scan Pulse Rate 101 H 91 Respiratory Rate 20 15 Blood Pressure 127/68 106/61 Blood Pressure Mean 87 76 Blood Pressure Left Arm Blood Pressure Location Left Arm Right Arm Blood Pressure Position Supine Supine O2 Sat by Pulse Oximetry 96 97 Oxygen Delivery Method Nasal Cannula Nasal Cannula Oxygen Flow Rate 2 2 Height Weight Telemetry Type Remote Telemetry Telemetry Monitoring Continues Telemetry Heart Rate 84 EKG ID Interval 0.17 EKG QRS Interval 0.05 L Telemetry Strip Reading NSR 11/17/23 08:00 Temperature Temperature Source Pulse Rate Respiratory Rate Blood Pressure Blood Pressure Mean Blood Pressure Left Arm Blood Pressure Location Blood Pressure Position O2 Sat by Pulse Oximetry Oxygen Delivery Method Nasal Cannula Oxygen Flow Rate 2 Height Weight Telemetry Type Telemetry Monitoring Telemetry Heart Rate EKG ID Interval EKG QRS Interval Telemetry Strip Reading Lab Results Lab Results: Lab Results: Last 24 Hours 11/17/23 11/16/23 11/16/23 05:11 14:15 11:26 WBC 19.40 H 21.31 H RBC 4.15 L 4.87 Hgb 12.1 14.4 Hct 37.4 43.3 MCV 90.1 88.9 MCH 29.2 29.6 MCHC 32.4 33.3 RDW Coeff of [place] 13.5 13.4 Plt Count 261 329 Immature Gran % (Auto) 0.4 Neut % (Auto) 80.6 H Lymph % (Auto) 8.9 L [place] % (Auto) 9.8 Eos % (Auto) 0.1 Baso % (Auto) 0.2 Neut # (Auto) 17.2 H Lymph # (Auto) 1.9 Knott # (Auto) 2.1 H Eos # (Auto) 0.0 Baso # (Auto) 0.0 Immature Gran # (Auto) 0.1 Neutrophils % (Manual) 80.0 H Band Neutrophils % 2.0 Lymphocytes % (Manual) 7.0 L Monocytes % (Manual) 11.0 H Anisocytosis Not present Sodium 137.9 140.6 Potassium 3.73 3.76 Chloride 102.5 101.4 Carbon Dioxide 27.7 30.2 H Anion Gap 11.43 12.76 BUN 14.6 14.1 Creatinine 0.84 0.91 Estimated GFR (MDRD) 67.00 61.00 BUN/Creatinine Ratio 17.38 15.49 Glucose 141.8 H 167.9 H Calcium 8.92 10.02 Total Bilirubin 1.35 H 1.65 H AST 29.2 27.5 ALT 24.7 28.3 Alkaline Phosphatase 91.7 D 122.1 Total Protein 6.70 7.86 Albumin 3.84 4.54 Globulin 2.86 3.32 Albumin/Globulin Ratio 1.34 1.36 Amylase 48.2 Lipase 50.4 Urine Color Urine Clarity Urine pH Ur Specific [place] Urine Protein Urine Glucose (UA) Urine Ketones Urine Blood Urine Nitrite Urine Bilirubin Urine Urobilinogen Ur Leukocyte Esterase Urine Microscopic RBC Urine Microscopic WBC Ur Squamous Epith Cells Amorphous Sediment Urine Bacteria Hyaline Casts Urine Mucus SARS CoV-2 RNA Rapid HAY Negative 11/16/23 11:22 WBC RBC Hgb Hct MCV MCH MCHC RDW Coeff of [place] Plt Count Immature Gran % (Auto) Neut % (Auto) Lymph % (Auto) Knott % (Auto) Eos % (Auto) Baso % (Auto) Neut # (Auto) Lymph # (Auto) K[place]t # (Auto) Eos # (Auto) Baso # (Auto) Immature Gran # (Auto) Neutrophils % (Manual) Band Neutrophils % Lymphocytes % (Manual) Monocytes % (Manual) Anisocytosis Sodium Potassium Chloride Carbon Dioxide Anion Gap BUN Creatinine Estimated GFR (MDRD) BUN/Creatinine Ratio Glucose Calcium Total Bilirubin AST ALT Alkaline Phosphatase Total Protein Albumin Globulin Albumin/Globulin Ratio Amylase Lipase Urine Color Dark Urine Clarity Slightly Urine pH 5.5 Ur Specific [place] 1.025 Urine Protein 1+ H Urine Glucose (UA) Negative Urine Ketones Negative Urine Blood Trace-intact H Urine Nitrite Negative Urine Bilirubin Negative Urine Urobilinogen 1.0 H Ur Leukocyte Esterase Negative Urine Microscopic RBC 5-10 Urine Microscopic WBC 5-10 Ur Squamous Epith Cells 5-10 Amorphous Sediment Trace Urine Bacteria Trace Hyaline Casts 2-5 Urine Mucus Trace SARS CoV-2 RNA Rapid HAY Additional Comments Additional Comments: I have independently reviewed and interpreted the labs/EKGs/imaging ordered during this hospital stay. I have reviewed outside records that are available in our EMR that pertain to medical stay including imaging/notes/labs from previous visits. Active Medications Active Medications: Medications Generic Name Dose Route Start Last Admin Trade Name Freq PRN Reason Stop Dose Admin Acetaminophen 650 mg 11/16/23 15:01 Acetaminophen 325 Mg Tablet PO Q4H PRN Mild Pain Albuterol Sulfate 2 puff 11/16/23 16:44 Albuterol Sulfate 8 Gm Inhaler IH Q4-6H PRN Wheezing Budesonide/Formoterol Fumarate 2 puff 11/16/23 21:00 11/17/23 08:24 Budesonide/Formoterol Fumarate 160/4.5 Mcg Inhaler IH 2 puff BID GINNY Administration Duloxetine HCl 60 mg 11/17/23 09:00 11/17/23 08:22 Duloxetine Hcl 30 Mg Capsule.Dr PO 60 mg DAILY GINNY Administration Enoxaparin Sodium 40 mg 11/17/23 09:00 Enoxaparin Sodium 40 Mg/0.4 Ml Syr SUBCUT DAILY GINNY Levofloxacin/Dextrose 750 mg in 150 mls @ 100 mls/hr 11/17/23 09:00 11/17/23 08:21 Levaquin 750 Mg/150 Ml D5w IV 11/20/23 08:59 100 mls/hr DAILY GINNY Administration Metronidazole 500 mg in 100 mls @ 100 mls/hr 11/16/23 15:05 11/17/23 05:25 Flagyl 500 Mg/100 Ml IV 11/19/23 15:04 100 mls/hr Q8HR GINNY Administration Lactated Ringer's 1,000 mls @ 75 mls/hr 11/16/23 15:30 11/17/23 05:25 Lactated Ringers IV 75 mls/hr .[id number] GINNY Administration Lorazepam 1 mg 11/16/23 21:00 11/16/23 21:42 Lorazepam 1 Mg Tablet PO 1 mg BEDTIME PRN Administration Insomnia Morphine Sulfate 2 mg 11/16/23 15:01 11/17/23 03:32 Morphine Sulfate 2 Mg/Ml Syringe IVP 2 mg Q6H PRN Administration MODERATE PAIN Nebivolol 5 mg 11/17/23 09:00 11/17/23 08:22 Nebivolol Hcl 5 Mg Tablet PO 5 mg DAILY GINNY Administration Olmesartan 40 mg 11/17/23 09:00 11/17/23 08:23 Olmesartan Medoxomil 20 Mg Tablet PO 40 mg DAILY GINNY Administration Ondansetron HCl 4 mg 11/16/23 15:01 11/17/23 03:32 Ondansetron Hcl/Pf 4 Mg/2 Ml Sdv IVP 4 mg Q6H PRN Administration Nausea / Vomiting Rosuvastatin Calcium 40 mg 11/16/23 21:00 11/16/23 20:21 Rosuvastatin Calcium 10 Mg Tablet PO 40 mg BEDTIME GINNY Administration Sodium Chloride 1 syr 11/16/23 11:53 11/16/23 12:08 0.9% Sodium Chloride 10 Ml Disp.Syrin IVF 1 syr PRN PRN Administration To flush IV Tiotropium [place] 1 cap 11/17/23 09:00 11/17/23 08:26 Tiotropium [place] 18 Mcg Cap.W.Dev IH 1 cap DAILY GINNY Administration Venlafaxine HCl 37.5 mg 11/17/23 09:00 11/17/23 08:22 Venlafaxine Hcl 37.5 Mg Cap.Er.24h PO 37.5 mg DAILY GINNY Administration Plan Plan: 1. Acute sigmoid diverticulitis - Advance as tolerated to clear liquids. Levaquin and metronidazole IV. Zofran and morphine iv prn. F/u with GI outpatient. Recent colonoscopy normal per patient. 2. Hypertension - Cont home meds 3. DMT2 - Pt has not yet started mounjaro. Recent a1c 6.6. 4. Hyperlipidemia - Cont home meds 5. Anxiety - Cont home meds DVT Prophylaxis: Lovenox Review Statement Review Statement: I have personally discussed and reviewed the patient's visit/currently labs/imaging/decision making with Dr. Stark, my supervising attending. Greater that 50 minutes spent with patient, 50% of the time spent with this patient was devoted to counseling and coordination of care.
[2023-11-17] MEDS ORDERED: NON-FORMULARY MEDICATION (Fluticasone-Umeclidin-Vilanter [Trelegy Ellipta] 200-62.5-25 mcg IH SCH (09:00)
[2023-11-17] MEDS: LOVENOX SUBCUT SCH (09:23)
[2023-11-17] MEDS: REGLAN IVP PRN (13:06)
[2023-11-17] MEDS: DULCOLAX PO ONE (19:31)
[2023-11-18] MEDS: TYLENOL PO PRN (05:14)
[2023-11-18 05:45] LABS: ALANINE AMINOTRANSFERASE 19.4 U/L (0-35); ALBUMIN 3.7 g/dL (3.5-5.0); ALKALINE PHOSPHATASE 97.6 U/L (53-141); ASPARTATE AMINO TRANSFERASE 23.8 U/L (14-36); BILIRUBIN,TOTAL 0.8 mg/dL (0.2-1.3); BLOOD UREA NITROGEN 13.1 mg/dL (7-17); CALCIUM 8.77 mg/dL (8.4-10.2); CARBON DIOXIDE 20.8 mmol/L (22-30.0); CHLORIDE 103.7 mmol/L (98-107); CREATININE 0.66 mg/dL (0.60-1.30); GLUCOSE 103.8 mg/dL (74-106); POTASSIUM 3.8 mmol/L (3.5-5.1); SODIUM 135.2 mmol/L (134.5-145); TOTAL PROTEIN 6.77 g/dL (6.3-8.2)
[2023-11-18 06:07] LABS: BASOPHILS % (AUTO) 0.3 % (0.0-3.0); EOSINOPHILS # (AUTO) 0.2 K/ul (0.0-0.7); EOSINOPHILS % (AUTO) 1.8 % (0.0-7.0); HEMATOCRIT 36.9 % (37.0-47.0); HEMOGLOBIN 11.8 g/dl (12.0-16.0); IMMATURE GRANULOCYTE % (AUTO) 0.3 % (0.0-5.0); LYMPHOCYTES # (AUTO) 1.6 K/uL (0.60-3.4); LYMPHOCYTES % (AUTO) 14.2 (10.0-50.0); MEAN CORPUSCULAR HEMOGLOBIN 28.8 pg (27.0-31.0); MONOCYTES # (AUTO) 0.9 K/uL (0.4-2.0); MONOCYTES % (AUTO) 7.8 (0-10); NEUTROPHILS # (AUTO) 8.7 K/ul (2.0-6.9); NEUTROPHILS % (AUTO) 75.6 % (42.2-75.2); PLATELET COUNT 256 10^3/uL (140-440); RDW COEFFICIENT OF VARIATION 13.1 % (11.6-14.8); WHITE BLOOD COUNT 11.45 K/ul (4.6-10.2)
[2023-11-18] MEDS: DULCOLAX PO ONE (09:01)
[2023-11-18] MEDS ORDERED: DILAUDID 1 MG/ML SYRINGE IVP PRN (09:10)
--- NOTE | 2023-11-18 09:10 | PCM.PROG ---
Date/Time Seen Date Seen by Provider: 11/18/23 Time Seen by Provider: 08:30 Provider Provider: [facility] Chief Complaint Chief Complaint: SIGMOID DIVERTICULITIS Subjective Subjective: Patient is feeling mildly improved day by day. She is concerned about not having a BM in several days, feels she would feel better if she could have one. She is passing gas. Wants to try something else for pain, as the morphine seems to make her feel ill. She states most pain medications don't agree with her. Objective Appearance: Positive No Apparent Distress and Alert and Oriented x3 Chest/Lungs: Positive Clear to Auscultation Bilaterally; Negative Rales, Rhonci or Wheezes Heart: Positive RRR GI/: Positive Soft, Bowel Sounds Normal and Tender (+LLQ, mildly distended, improved ) Neurological: Positive Cranial Nerves Intact, Alert and Oriented Vital Signs Vital Signs: Vital Signs: Last 24 Hours 11/17/23 10:00 11/17/23 13:00 11/17/23 14:00 Temperature 98.3 F 98.2 F Temperature Source Temporal Artery Scan Temporal Artery Scan Pulse Rate 91 98 Respiratory Rate 16 16 Blood Pressure 118/65 138/79 Blood Pressure Mean 82 98 Blood Pressure Location Right Arm Left Arm Blood Pressure Position Sitting Sitting O2 Sat by Pulse Oximetry 95 94 L Oxygen Delivery Method Nasal Cannula Room Air Oxygen Flow Rate 1 Telemetry Type Remote Telemetry Telemetry Monitoring Continues Telemetry Heart Rate 93 EKG [place] Interval 0.14 EKG QRS Interval 0.04 L Telemetry Strip Reading SR 11/17/23 18:00 11/17/23 19:00 11/17/23 19:39 Temperature 97.1 F L Temperature Source Temporal Artery Scan Pulse Rate 83 Respiratory Rate 16 Blood Pressure 151/74 H Blood Pressure Mean 99 Blood Pressure Location Right Arm Blood Pressure Position Sitting O2 Sat by Pulse Oximetry 96 Oxygen Delivery Method Room Air Room Air Oxygen Flow Rate Telemetry Type Remote Telemetry Telemetry Monitoring Continues Telemetry Heart Rate 78 EKG [place] Interval 0.17 EKG QRS Interval 0.08 Telemetry Strip Reading SR 11/17/23 20:42 11/18/23 00:42 11/18/23 01:16 Temperature 97.5 F L 97.8 F Temperature Source Temporal Artery Scan Temporal Artery Scan Pulse Rate 75 77 Respiratory Rate 20 18 Blood Pressure 126/65 119/56 L Blood Pressure Mean 85 77 Blood Pressure Location Right Arm Right Arm Blood Pressure Position Supine Supine O2 Sat by Pulse Oximetry 96 93 L Oxygen Delivery Method Room Air Room Air Oxygen Flow Rate Telemetry Type Remote Telemetry Telemetry Monitoring Continues Telemetry Heart Rate 77 EKG [place] Interval 0.14 EKG QRS Interval 0.06 Telemetry Strip Reading sinus rhythm 11/18/23 05:16 Temperature 99.2 F Temperature Source Temporal Artery Scan Pulse Rate 81 Respiratory Rate 18 Blood Pressure 148/69 H Blood Pressure Mean 95 Blood Pressure Location Right Arm Blood Pressure Position Supine O2 Sat by Pulse Oximetry 94 L Oxygen Delivery Method Room Air Oxygen Flow Rate Telemetry Type Telemetry Monitoring Telemetry Heart Rate EKG [place] Interval EKG QRS Interval Telemetry Strip Reading Lab Results Lab Results: Lab Results: Last 24 Hours 11/18/23 11/18/23 06:00 05:04 WBC 11.45 H D RBC 4.10 L Hgb 11.8 L Hct 36.9 L MCV 90.0 MCH 28.8 MCHC 32.0 RDW Coeff of [place] 13.1 Plt Count 256 Immature Gran % (Auto) 0.3 Neut % (Auto) 75.6 H Lymph % (Auto) 14.2 Stark % (Auto) 7.8 Eos % (Auto) 1.8 Baso % (Auto) 0.3 Neut # (Auto) 8.7 H Lymph # (Auto) 1.6 Stark # (Auto) 0.9 Eos # (Auto) 0.2 Baso # (Auto) 0.0 Immature Gran # (Auto) 0.0 Sodium 135.2 Potassium 3.80 Chloride 103.7 Carbon Dioxide 20.8 L Anion Gap 14.50 BUN 13.1 Creatinine 0.66 Estimated GFR (MDRD) 88.00 BUN/Creatinine Ratio 19.84 Glucose 103.8 Calcium 8.77 Total Bilirubin 0.80 AST 23.8 ALT 19.4 Alkaline Phosphatase 97.6 Total Protein 6.77 Albumin 3.70 Globulin 3.07 Albumin/Globulin Ratio 1.20 Additional Comments Additional Comments: I have independently reviewed and interpreted the labs/EKGs/imaging ordered during this hospital stay. I have reviewed outside records that are available in our EMR that pertain to medical stay including imaging/notes/labs from previous visits. Active Medications Active Medications: Medications Generic Name Dose Route Start Last Admin Trade Name Freq PRN Reason Stop Dose Admin Acetaminophen 650 mg 11/16/23 15:01 11/18/23 05:14 Acetaminophen 325 Mg Tablet PO 650 mg Q4H PRN Administration Mild Pain Albuterol Sulfate 2 puff 11/16/23 16:44 Albuterol Sulfate 8 Gm Inhaler IH Q4-6H PRN Wheezing Budesonide/Formoterol Fumarate 2 puff 11/16/23 21:00 11/18/23 09:02 Budesonide/Formoterol Fumarate 160/4.5 Mcg Inhaler IH 2 puff BID GINNY Administration Duloxetine HCl 60 mg 11/17/23 09:00 11/18/23 08:45 Duloxetine Hcl 30 Mg Capsule.Dr PO 60 mg DAILY GINNY Administration Enoxaparin Sodium 40 mg 11/17/23 09:00 11/18/23 08:46 Enoxaparin Sodium 40 Mg/0.4 Ml Syr SUBCUT 40 mg DAILY GINNY Administration Levofloxacin/Dextrose 750 mg in 150 mls @ 100 mls/hr 11/17/23 09:00 11/18/23 08:42 Levaquin 750 Mg/150 Ml D5w IV 11/20/23 08:59 100 mls/hr DAILY GINNY Administration Metronidazole 500 mg in 100 mls @ 100 mls/hr 11/16/23 15:05 11/18/23 05:02 Flagyl 500 Mg/100 Ml IV 11/19/23 15:04 100 mls/hr Q8HR GINNY Administration Lorazepam 1 mg 11/16/23 21:00 11/17/23 20:37 Lorazepam 1 Mg Tablet PO 1 mg BEDTIME PRN Administration Insomnia Metoclopramide HCl 5 mg 11/17/23 12:55 11/17/23 20:37 Metoclopramide Hcl 10 Mg/2 Ml IVP 5 mg Q6HR PRN Administration Nausea / Vomiting Morphine Sulfate 2 mg 11/16/23 15:01 11/17/23 09:19 Morphine Sulfate 2 Mg/Ml Syringe IVP 2 mg Q6H PRN Administration MODERATE PAIN Nebivolol 5 mg 11/17/23 09:00 11/18/23 08:45 Nebivolol Hcl 5 Mg Tablet PO 5 mg DAILY GINNY Administration Olmesartan 40 mg 11/17/23 09:00 11/18/23 08:45 Olmesartan Medoxomil 20 Mg Tablet PO 40 mg DAILY GINNY Administration Ondansetron HCl 4 mg 11/16/23 15:01 11/18/23 07:52 Ondansetron Hcl/Pf 4 Mg/2 Ml Sdv IVP 4 mg Q6H PRN Administration Nausea / Vomiting Rosuvastatin Calcium 40 mg 11/16/23 21:00 11/17/23 20:29 Rosuvastatin Calcium 10 Mg Tablet PO 40 mg BEDTIME GINNY Administration Sodium Chloride 1 syr 11/17/23 21:00 11/18/23 05:02 0.9% Sodium Chloride 10 Ml Disp.Syrin IVF 1 syr Q8H GINNY Administration Tiotropium [place] 1 cap 11/17/23 09:00 11/18/23 09:02 Tiotropium [place] 18 Mcg Cap.W.Dev IH 1 cap DAILY GINNY Administration Venlafaxine HCl 37.5 mg 11/17/23 09:00 11/18/23 08:45 Venlafaxine Hcl 37.5 Mg Cap.Er.24h PO 37.5 mg DAILY GINNY Administration Plan Plan: 1. Acute sigmoid diverticulitis - Improving. Advance as tolerated to clear liquids. Levaquin and metronidazole IV. Zofran prn. Change morphine to dilaudid. F/u with GI outpatient. Recent colonoscopy normal per patient. 2. Hypertension - Cont home meds 3. DMT2 - Recent a1c 6.6. Pt was changed from ozempic to mounjaro but has had trouble filling it. 4. Hyperlipidemia - Cont home meds 5. Anxiety - Cont home meds DVT Prophylaxis: Lovenox Review Statement Review Statement: I have personally discussed and reviewed the patient's visit/currently labs/imaging/decision making with Dr. Stark, my supervising attending. Greater that 50 minutes spent with patient, 50% of the time spent with this patient was devoted to counseling and coordination of care.
[2023-11-18] MEDS: DILAUDID 0.5 MG/0.5 ML SYRINGE IVP PRN (23:41)
[2023-11-19] MEDS: MIRALAX PO ONE (08:48)
[2023-11-19 08:50] LABS: BASOPHILS # (AUTO) 0.1 K/uL (0-0.2); BASOPHILS % (AUTO) 0.6 % (0.0-3.0); EOSINOPHILS # (AUTO) 0.3 K/ul (0.0-0.7); HEMATOCRIT 37.3 % (37.0-47.0); HEMOGLOBIN 11.8 g/dl (12.0-16.0); IMMATURE GRANULOCYTE % (AUTO) 0.4 % (0.0-5.0); LYMPHOCYTES # (AUTO) 1.6 K/uL (0.60-3.4); LYMPHOCYTES % (AUTO) 19.3 (10.0-50.0); MEAN CORPUSCULAR HEMOGLOBIN 28.7 pg (27.0-31.0); MEAN CORPUSCULAR HGB CONC 31.6 (31.8-35.4); MEAN CORPUSCULAR VOLUME 90.8 fl (81.0-99.0); MONOCYTES # (AUTO) 0.6 K/uL (0.4-2.0); MONOCYTES % (AUTO) 6.9 (0-10); NEUTROPHILS # (AUTO) 5.8 K/ul (2.0-6.9); NEUTROPHILS % (AUTO) 69.8 % (42.2-75.2); PLATELET COUNT 274 10^3/uL (140-440); RED BLOOD COUNT 4.11 10^6/ul (4.20-5.40); WHITE BLOOD COUNT 8.25 K/ul (4.6-10.2)
[2023-11-19 09:01] LABS: ALANINE AMINOTRANSFERASE 22.3 U/L (0-35); ALBUMIN 3.84 g/dL (3.5-5.0); ALKALINE PHOSPHATASE 96.2 U/L (53-141); ASPARTATE AMINO TRANSFERASE 35.4 U/L (14-36); BILIRUBIN,TOTAL 0.55 mg/dL (0.2-1.3); BLOOD UREA NITROGEN 11.5 mg/dL (7-17); CALCIUM 9.08 mg/dL (8.4-10.2); CARBON DIOXIDE 26.9 mmol/L (22-30.0); CHLORIDE 101.6 mmol/L (98-107); CREATININE 0.67 mg/dL (0.60-1.30); GLUCOSE 94.6 mg/dL (74-106); POTASSIUM 3.71 mmol/L (3.5-5.1); SODIUM 136.2 mmol/L (134.5-145); TOTAL PROTEIN 6.67 g/dL (6.3-8.2)
--- NOTE | 2023-11-19 09:33 | DCSUM ---
Admission Date Admission Date: 11/16/23 Discharge Date Discharge Date: 11/20/23 Admission Diagnosis Admission Diagnosis: 1. Acute sigmoid diverticulitis Discharge Diagnosis Discharge Diagnosis: 1. Acute sigmoid diverticulitis - Improving. 2. Hypertension 3. DMT2 4. Hyperlipidemia 5. Anxiety Hospital Provider Hospital Provider: KATE QUEEN [place] [facility] [place] Primary Care Physician: DARIEN BRAR MD Summary of History and Physical Summary of History and Physical: Patient is a 73-year-old female with past medical history of recurrent diverticulitis, diabetes, obesity, fibromyalgia, anxiety, hypertension, hyperlipidemia, irritable bowel syndrome who presents to the ER with 4-day history of left-sided abdominal pain. She she felt as though it was similar to previous episodes of diverticulitis. She states that she has had fevers chills on and off. She has had some nausea and vomiting as well. She has had decreased intake. She denies any diarrhea or bloody stools, she has actually been more constipated. States she has not had a bowel movement in 5 days. She feels very bloated. She is status post multiple abdominal surgeries. In the ER she was found to have acute uncomplicated diverticulitis on CT. Her white blood cell count is 21. Otherwise labs are rather unremarkable. She was given Zofran, Levaquin, Dilaudid, Tylenol with some relief. She will be admitted to [facility]. Of note she states that she is diabetic and she just recently was prescribed Mounjaro but she has not yet picked up this prescription/started it. She states that she takes Lasix daily for edema but is unaware of any history of heart failure. She also sees a GI at [facility] in [place] for IBS related symptoms. She states that she last had a colonoscopy beginning of 2023 which was normal. Hospital Course Subjective: Patient was treated with leavquin and flagyl. She initially required iv pain and nausea medication but this improved. She was concerned about not having a BM for several days. Patient had a BM on 11/18 and was planning on discharge but was delayed as it had some blood in it and patient was concerned. She was monitored overnight and did not have additional bloody stools. Hgb actually improved mildly today. She is comfortable with dc to home today, would like to get back on her linzess at home. Encouraged close f/u with GI. Red flags on when to return discussed. Appearance: Pleasant, No Apparent Distress and Alert HEENT: MMM and Supple CVS: No Murmur Abdomen: Soft and Other (+MILD LLQ TENDERNESS, GREATLY IMPROVED, NO DISTENTION ) Respiratory: No Accessory Muscle Use Extremities: No Edema Vital Signs: Most Recent Vital Signs Temperature 97.8 F 11/19/23 05:08 Temperature Source Temporal Artery Scan 11/19/23 05:08 Temperature Source Infrared 11/16/23 11:09 Pulse Rate 79 11/19/23 05:08 Respiratory Rate 18 11/19/23 05:08 Blood Pressure 120/71 11/19/23 05:08 Blood Pressure Mean 87 11/19/23 05:08 Blood Pressure Left Arm 133/64 11/16/23 15:23 Blood Pressure Location Left Arm 11/19/23 05:08 Blood Pressure Position Supine 11/19/23 05:08 O2 Sat by Pulse Oximetry 90 L 11/19/23 05:08 Oxygen Delivery Method Room Air 11/19/23 08:00 Oxygen Flow Rate 1 11/17/23 10:00 Height 5 ft 4 in 11/17/23 08:38 Weight 199 lb 11/17/23 08:38 Telemetry Type Remote Telemetry 11/18/23 07:00 Telemetry Monitoring Continues 11/18/23 07:00 Telemetry Heart Rate 79 11/18/23 07:00 Telemetry SPO2 97 07/29/21 01:00 EKG WA Interval 0.15 11/18/23 07:00 EKG QRS Interval 0.08 11/18/23 07:00 Telemetry Strip Reading NSR 11/18/23 07:00 Imaging: EXAM: CT ABDOMEN AND PELVIS WITH CONTRAST HISTORY: Left lower abdominal pain. TECHNIQUE: CT acquisition of the abdomen and pelvis from the lower thorax through the pelvis following IV contrast administration. 2-D coronal and sagittal reformatted images were obtained from the axial source images. IV Contrast: 100 mL of Omnipaque 350 administered. Oral Contrast: None. CT Dose Reduction Techniques Performed: Yes. COMPARISON:05/06/2023 FINDINGS: Lower Thorax: Within normal limits. Liver: No mass. Normal morphology. Biliary: Cholecystectomy. The biliary system is unremarkable. Pancreas: No mass or evidence of pancreatitis. No duct dilation. Spleen: No mass. No splenomegaly. Calcified granulomas. Adrenals: No mass. Kidneys/Ureters: No renal mass. No calculus or hydronephrosis. GI Tract: Diverticula seen along the sigmoid colon and descending colon. The mid sigmoid colon does show pericolonic inflammation without discrete indication of perforation or fluid collection. However this is obscured from metallic artifact from bilateral hip arthroplasty. The the remaining colon shows no focal abnormality. The appendix is not visualized. Small bowel shows no focal abnormality or obstruction to the stomach is unremarkable. Peritoneal Cavity: No free air, discrete free fluid, fluid collections or other areas of inflammation. Retroperitoneum: No fluid collection. Lymph Nodes: No lymphadenopathy. Vasculature: No significant aortic atherosclerotic calcifications. No aortic or iliac aneurysm. Celiac, superior mesenteric, and inferior mesenteric arteries are grossly patent. Limited assessment of the portal and hepatic veins and IVC is unremarkable within limitations of the phase of IV contrast. Pelvis: Pelvic structures are grossly normal although mainly obscured from the metallic artifact from bilateral hip arthroplasty. Bones/Soft Tissues: No fracture or lytic lesion. The mild degenerative change seen spine. Postsurgical changes from L4-S1 without sequelae. Bilateral hip arthroplasty without sequelae. Visualized abdominal wall soft tissues are unremarkable. IMPRESSION: 1. Acute uncomplicated sigmoid diverticulitis. 2. Other chronic and non emergent findings as above. Lab Results Last 24 Hours: 11/19/23 08:47 WBC 8.25 RBC 4.11 L Hgb 11.8 L Hct 37.3 MCV 90.8 MCH 28.7 MCHC 31.6 L RDW Coeff of [place] 13.0 Plt Count 274 Immature Gran % (Auto) 0.4 Neut % (Auto) 69.8 Lymph % (Auto) 19.3 [place] % (Auto) 6.9 Eos % (Auto) 3.0 Baso % (Auto) 0.6 Neut # (Auto) 5.8 Lymph # (Auto) 1.6 [place] # (Auto) 0.6 Eos # (Auto) 0.3 Baso # (Auto) 0.1 Immature Gran # (Auto) 0.0 Sodium 136.2 Potassium 3.71 Chloride 101.6 Carbon Dioxide 26.9 Anion Gap 11.41 BUN 11.5 Creatinine 0.67 Estimated GFR (MDRD) 87.00 BUN/Creatinine Ratio 17.16 Glucose 94.6 Calcium 9.08 Total Bilirubin 0.55 AST 35.4 ALT 22.3 Alkaline Phosphatase 96.2 Total Protein 6.67 Albumin 3.84 Globulin 2.83 Albumin/Globulin Ratio 1.35 Discharge Instructions Discharge Planning: Discharge Planning > [address] Rosina Brar. Discharge Medications: Medications at Discharge (Home Meds & RX) Discharge Plan Discharge Discharge Orders: Discharge Patient (ONCE); Ordered 11/20/23 Ordered By: KATE QUEEN Activity Restrictions/Additional Instructions: DISCHARGE TO HOME DIET: PROGRESS TOLERATED ACTIVITY: TOLERATED F/U WITH GI FINISH ANTIBIOTICS START LEVAQUIN TOMORROW, START METRONIDAZOLE (FLAGYL) THIS AFTERNOON RECOMMEND PROBIOTIC (OVER THE COUNTER) Patient Disposition: HOME SELF-CARE Prescriptions: New levofloxacin 750 mg tablet 750 mg PO DAILY 6 Days Qty: 6 0RF Rx Instructions: STARTING 11/20/23 metronidazole 500 mg tablet 500 mg PO Q8H 6 Days Qty: 18 0RF Rx Instructions: START THIS EVENING metoclopramide HCl [Reglan] 5 mg tablet 5 mg PO Q6H PRN (Reason: nausea and vomiting) Qty: 14 0RF Continued rosuvastatin [Crestor] 40 mg tablet 40 mg PO BEDTIME nebivolol 5 mg tablet 5 mg PO QDAY Linzess 145 mcg capsule 145 mcg PO QAM duloxetine 60 mg capsule,delayed release(DR/EC) 60 mg PO QDAY Qty: 90 0RF furosemide 40 mg tablet 40 mg PO QAM Qty: 90 1RF olmesartan [Benicar] 40 mg tablet 40 mg PO QDAY Qty: 90 1RF potassium chloride 10 mEq tablet extended release 10 meq PO QAM Qty: 90 1RF lorazepam 1 mg tablet 1 mg PO QHS PRN (Reason: sleep) Qty: 30 2RF Trelegy Ellipta 200-62.5-25 mcg blister with device 1 inh inhalation QDAY Qty: 28 0RF albuterol sulfate 90 mcg/actuation HFA aerosol inhaler 2 inh inhalation Q4-6H PRN (Reason: shortness of breath or wheezing) Qty: 8.5 5RF Mounjaro 10 mg/0.5 mL pen injector 10 mg subcut QWEEK Qty: 2 2RF Patient Comments: Takes on Tuesday venlafaxine [Effexor XR] 37.5 mg capsule,extended release 24hr 37.5 mg PO QDAY Qty: 30 0RF Did you review [place] APPRAISAL ANALYST for ALL controlled substances?: Not Applicable Discussed opioids are addictive and Narcan is available by prescription or from pharmacy.: No Condition: Stable
[2023-11-19] MEDS: MILK OF MAGNESIA PO ONE (09:54)
--- NOTE | 2023-11-19 14:39 | PCM.PROG ---
Date/Time Seen Date Seen by Provider: 11/19/23 Time Seen by Provider: 08:30 Provider [facility] Complaint Chief Complaint: SIGMOID DIVERTICULITIS Subjective Subjective: Patient feeling better today. Hasn't had IV pain/nausea medicine since last night. Tolerating PO. Discussed discharge plans to home. However patient was able to have a BM that was bloody, unwitnessed by staff. Pt describes it as "ribbon like". Pt uncomfortable with discharge to home after this. Objective Appearance: Positive No Apparent Distress and Alert and Oriented x3 Chest/Lungs: Positive Clear to Auscultation Bilaterally; Negative Rales, Rhonci or Wheezes Heart: Positive RRR GI/: Positive Soft, Bowel Sounds Normal and Tender (+minimal LLQ pain, improved, no distention ) Neurological: Positive Cranial Nerves Intact, Alert and Oriented Vital Signs Vital Signs: Vital Signs: Last 24 Hours 11/18/23 15:00 11/18/23 18:00 11/18/23 19:51 Temperature 97.5 F L 97.6 F Temperature Source Oral Oral Pulse Rate 84 72 Respiratory Rate 16 18 Blood Pressure 127/72 146/74 H Blood Pressure Mean 90 98 Blood Pressure Location Left Arm Left Arm Blood Pressure Position Supine Sitting O2 Sat by Pulse Oximetry 91 L 94 L Oxygen Delivery Method Room Air Room Air Room Air 11/18/23 21:02 11/19/23 05:08 11/19/23 08:00 Temperature 98.1 F 97.8 F Temperature Source Temporal Artery Scan Temporal Artery Scan Pulse Rate 79 79 Respiratory Rate 18 18 Blood Pressure 137/71 120/71 Blood Pressure Mean 93 87 Blood Pressure Location Left Arm Left Arm Blood Pressure Position Supine Supine O2 Sat by Pulse Oximetry 90 L 90 L Oxygen Delivery Method Room Air Room Air Room Air 11/19/23 10:00 Temperature 97.7 F Temperature Source Temporal Artery Scan Pulse Rate 74 Respiratory Rate 17 Blood Pressure 135/74 Blood Pressure Mean 94 Blood Pressure Location Left Radial Artery Blood Pressure Position Supine O2 Sat by Pulse Oximetry 91 L Oxygen Delivery Method Room Air Lab Results Lab Results: Lab Results: Last 24 Hours 11/19/23 08:47 WBC 8.25 RBC 4.11 L Hgb 11.8 L Hct 37.3 MCV 90.8 MCH 28.7 MCHC 31.6 L RDW Coeff of [place] 13.0 Plt Count 274 Immature Gran % (Auto) 0.4 Neut % (Auto) 69.8 Lymph % (Auto) 19.3 [place] % (Auto) 6.9 Eos % (Auto) 3.0 Baso % (Auto) 0.6 Neut # (Auto) 5.8 Lymph # (Auto) 1.6 [place] # (Auto) 0.6 Eos # (Auto) 0.3 Baso # (Auto) 0.1 Immature Gran # (Auto) 0.0 Sodium 136.2 Potassium 3.71 Chloride 101.6 Carbon Dioxide 26.9 Anion Gap 11.41 BUN 11.5 Creatinine 0.67 Estimated GFR (MDRD) 87.00 BUN/Creatinine Ratio 17.16 Glucose 94.6 Calcium 9.08 Total Bilirubin 0.55 AST 35.4 ALT 22.3 Alkaline Phosphatase 96.2 Total Protein 6.67 Albumin 3.84 Globulin 2.83 Albumin/Globulin Ratio 1.35 Additional Comments Additional Comments: I have independently reviewed and interpreted the labs/EKGs/imaging ordered during this hospital stay. I have reviewed outside records that are available in our EMR that pertain to medical stay including imaging/notes/labs from previous visits. Active Medications Active Medications: Medications Generic Name Dose Route Start Last Admin Trade Name Freq PRN Reason Stop Dose Admin Acetaminophen 650 mg 11/16/23 15:01 11/18/23 21:03 Acetaminophen 325 Mg Tablet PO 650 mg Q4H PRN Administration Mild Pain Albuterol Sulfate 2 puff 11/16/23 16:44 Albuterol Sulfate 8 Gm Inhaler IH Q4-6H PRN Wheezing Budesonide/Formoterol Fumarate 2 puff 11/16/23 21:00 11/19/23 08:52 Budesonide/Formoterol Fumarate 160/4.5 Mcg Inhaler IH 2 puff BID GINNY Administration Duloxetine HCl 60 mg 11/17/23 09:00 11/19/23 08:50 Duloxetine Hcl 30 Mg Capsule.Dr PO 60 mg DAILY GINNY Administration Enoxaparin Sodium 40 mg 11/17/23 09:00 11/19/23 08:53 Enoxaparin Sodium 40 Mg/0.4 Ml Syr SUBCUT 40 mg DAILY GINNY Administration Hydromorphone HCl 0.5 mg 11/18/23 09:15 11/18/23 23:41 Hydromorphone 0.5 Mg/0.5 Ml Syringe IVP 0.5 mg Q4HR PRN Administration MODERATE PAIN Levofloxacin/Dextrose 750 mg in 150 mls @ 100 mls/hr 11/17/23 09:00 11/19/23 08:52 Levaquin 750 Mg/150 Ml D5w IV 11/20/23 08:59 100 mls/hr DAILY GINNY Administration Metronidazole 500 mg in 100 mls @ 100 mls/hr 11/16/23 15:05 11/19/23 13:07 Flagyl 500 Mg/100 Ml IV 11/19/23 15:04 100 mls/hr Q8HR GINNY Administration Lorazepam 1 mg 11/16/23 21:00 11/18/23 20:10 Lorazepam 1 Mg Tablet PO 1 mg BEDTIME PRN Administration Insomnia Metoclopramide HCl 5 mg 11/17/23 12:55 11/18/23 10:20 Metoclopramide Hcl 10 Mg/2 Ml IVP 5 mg Q6HR PRN Administration Nausea / Vomiting Nebivolol 5 mg 11/17/23 09:00 11/19/23 08:50 Nebivolol Hcl 5 Mg Tablet PO 5 mg DAILY GINNY Administration Olmesartan 40 mg 11/17/23 09:00 11/19/23 08:51 Olmesartan Medoxomil 20 Mg Tablet PO 40 mg DAILY GINNY Administration Ondansetron HCl 4 mg 11/16/23 15:01 11/18/23 07:52 Ondansetron Hcl/Pf 4 Mg/2 Ml Sdv IVP 4 mg Q6H PRN Administration Nausea / Vomiting Rosuvastatin Calcium 40 mg 11/16/23 21:00 11/18/23 20:09 Rosuvastatin Calcium 10 Mg Tablet PO 40 mg BEDTIME GINNY Administration Sodium Chloride 1 syr 11/17/23 21:00 11/19/23 13:06 0.9% Sodium Chloride 10 Ml Disp.Syrin IVF 1 syr Q8H GINNY Administration Tiotropium [place] 1 cap 11/17/23 09:00 11/19/23 08:51 Tiotropium [place] 18 Mcg Cap.W.Dev IH 1 cap DAILY GINNY Administration Venlafaxine HCl 37.5 mg 11/17/23 09:00 11/19/23 08:51 Venlafaxine Hcl 37.5 Mg Cap.Er.24h PO 37.5 mg DAILY GINNY Administration Plan Plan: 1. Acute sigmoid diverticulitis - Improving. Advance as tolerated to clear liquids. Levaquin and metronidazole IV. Zofran prn. Continue dilaudid. F/u with GI outpatient. Recent colonoscopy normal per patient. Will monitor overnight as patient had a bloody bowel movement, will make sure it does not worsen. 2. Hypertension - Cont home meds 3. DMT2 - Recent a1c 6.6. Pt was changed from ozempic to mounjaro but has had trouble filling it. 4. Hyperlipidemia - Cont home meds 5. Anxiety - Cont home meds DVT Prophylaxis: Stop lovenox Review Statement Review Statement: I have personally discussed and reviewed the patient's visit/currently labs/imaging/decision making with Dr. Stark, my supervising attending. Greater that 50 minutes spent with patient, 50% of the time spent with this patient was devoted to counseling and coordination of care.
[2023-11-20 05:23] VITALS: BP 145/87; PULSE 65; RESP 18; TEMP 98.3
[2023-11-20 06:14] LABS: BASOPHILS % (AUTO) 0.5 % (0.0-3.0); EOSINOPHILS # (AUTO) 0.2 K/ul (0.0-0.7); EOSINOPHILS % (AUTO) 2.7 % (0.0-7.0); HEMATOCRIT 37.7 % (37.0-47.0); HEMOGLOBIN 12.2 g/dl (12.0-16.0); IMMATURE GRANULOCYTE % (AUTO) 0.5 % (0.0-5.0); LYMPHOCYTES # (AUTO) 1.9 K/uL (0.60-3.4); LYMPHOCYTES % (AUTO) 23.8 (10.0-50.0); MEAN CORPUSCULAR HEMOGLOBIN 28.8 pg (27.0-31.0); MEAN CORPUSCULAR HGB CONC 32.4 (31.8-35.4); MEAN CORPUSCULAR VOLUME 88.9 fl (81.0-99.0); MONOCYTES # (AUTO) 0.7 K/uL (0.4-2.0); MONOCYTES % (AUTO) 8.7 (0-10); NEUTROPHILS % (AUTO) 63.8 % (42.2-75.2); PLATELET COUNT 296 10^3/uL (140-440); RDW COEFFICIENT OF VARIATION 12.9 % (11.6-14.8); RED BLOOD COUNT 4.24 10^6/ul (4.20-5.40); WHITE BLOOD COUNT 7.86 K/ul (4.6-10.2)
[2023-11-20 06:27] LABS: ALANINE AMINOTRANSFERASE 22.5 U/L (0-35); ALBUMIN 3.85 g/dL (3.5-5.0); ALKALINE PHOSPHATASE 92.7 U/L (53-141); ASPARTATE AMINO TRANSFERASE 42.8 U/L (14-36); BILIRUBIN,TOTAL 0.48 mg/dL (0.2-1.3); BLOOD UREA NITROGEN 9.5 mg/dL (7-17); CALCIUM 9.15 mg/dL (8.4-10.2); CARBON DIOXIDE 30.2 mmol/L (22-30.0); CHLORIDE 101.4 mmol/L (98-107); CREATININE 0.7 mg/dL (0.60-1.30); POTASSIUM 3.82 mmol/L (3.5-5.1); SODIUM 137.5 mmol/L (134.5-145); TOTAL PROTEIN 6.8 g/dL (6.3-8.2)
[2023-11-20] MEDS ORDERED: LEVAQUIN PO SCH (08:30)
[2023-11-20] MEDS: FLAGYL PO SCH (08:59)
[2023-11-20] MEDS: LEVAQUIN PO SCH (09:00)
== END 2023-11-20 09:20 | disposition home or self-care (01) | DRG 392 ==
LOC: ED 11:05 → MEDSURG B 15:05
PROVIDERS: ADMIT Hospitalist; ATTEND Physician Assistant